=== PATIENT | female | born 1995 | race Caucasian/White ===

== ENCOUNTER → 2016-12-27 | Outpatient (CLI) | payer BC ==
[~2016-12-27] MED LIST: BCP PO; CHOL2000 PO; HYDR-3454 PO; HYDR-757 PO; IBUP-1773 PO; LIRA0.6P SQ; METF500T4 PO; NITR-65 PO; PANT40TA2 PO; PRENATAL; PROG200C14 PO; TRM50T PO
--- OUTSIDE RECORDS SUMMARY | 2016-12-27 10:02 | XMS REPORT | Continuity of Care Document ---
Author Author [facility] Organization [facility] Address Unknown Phone Unavailable Care Team Providers Care Chair Pad Maker Name Role Phone KENNY DUKE DO PCP Insurance Providers Payer Name Policy Number Subscriber Name Relationship [id number] Neto Arenas 19 Father Advance Directives Directive Response Recorded Date/Time Advance Directives No 08/19/16 12:15pm Health Care Power of Driver Courier No 08/19/16 12:15pm Organ Donor No 08/19/16 12:15pm Resuscitation Status Full Code 08/19/16 12:15pm Problems Active Problems Medical Problem Onset Date Status Abdominal pain Unknown Acute Abdominal pain Unknown Acute OVARIAN CYST Unknown Acute OVARIAN CYST Unknown Acute Medications Current Home Medications Medication Dose Units Route Directions Days/Qty Instructions Start Date [Bcp] 1 Tab Oral Daily 09/02/14 Metformin Hcl 500 Mg 1,000 Mg Oral Daily 08/19/16 Pantoprazole Sodium 40 Mg 40 Mg Oral Daily 30 08/19/16 Past Home Medications Medication Directions Ordered Status Hydrocodone Bit/Acetaminophen 1 Each Tablet, 1 Ea Oral Every 6 Hours as needed for Mild Pain 12/23/13 Discontinued Tramadol Hcl 50 Mg Tab, 50 Mg Oral Q4-6HR as needed for Pain 12/26/13 Discontinued Nitrofurantoin Macrocrystals 100 Mg Capsule, 1 Each Oral Twice A Day Discontinued Hydrocodone Bit/Acetaminophen 1 Tab Tablet, 1 Tab Oral Every 4HRS as needed for Pain 09/05/14 Discontinued Ibuprofen (Motrin) 600 Mg Tablet, 600 Mg Oral Every 6 Hours as needed for Pain 09/05/14 Discontinued Metformin Hcl 500 Mg Tablet, 500 Mg Oral Daily 05/03/16 Discontinued Liraglutide 0.6 Mg/0.1 Ml Pen.injctr, 0.6 Mg Sub-Q Daily 05/03/16 Discontinued Cholecalciferol (Vitamin D3) 2,000 Unit Capsule, 2000 Unit Oral Daily Discontinued Hydrocodone/Acetaminophen 1 Each Tablet, 1 Each Oral Every 4HRS as needed for Abdominal Pain 05/03/16 Discontinued Hydrocodone/Acetaminophen 1 Each Tablet, 1 Each Oral Every 4HRS as needed for Abdominal Pain 05/17/16 Discontinued Social History Social History Problem Response Recorded Date/Time Alcohol Use Denies Use 05/03/2016 7:30am Recreational Drug Use No 05/03/2016 7:30am Recent Foreign Travel No 08/19/2016 12:15pm Recent Infectious Disease Exposure No 08/19/2016 12:15pm Sexually Transmitted Disease No 08/19/2016 12:15pm HIV/AIDS No 08/19/2016 12:15pm Smoking Status Never a Smoker 08/19/2016 12:15pm Recent Hopitalizations No 08/19/2016 12:15pm Sexually Transmitted Disease No 08/19/2016 12:15pm Hx Sexually Transmitted Disorders No 09/05/2014 8:13am Query Response Start Date Stop Date Smoking Status Never a Smoker Hospital Discharge Instructions Patient Instructions Physician Instructions New, Converted or Re-Newed RX: RX on Chart Plan of Care/Instructions/FU: follow-up with me in 4 weeks Activity as Tolerated: Yes Discharge Diet: No Restrictions Care Plan Patient Instructions:: follow-up with me in 4 weeks Plan of Care Discharge Date 08/19/16 2:50pm Instructions/Education Provided EGD-ESOPHAGOGASTRODUODENOSCOPY Hiatal Hernia (DC) Prescriptions See Medication Section Functional Status No functional status results. Allergies, Adverse Reactions, Alerts Allergen Type Severity Reaction Status Last Updated iodine ([id number]) Allergy Unknown Active 09/05/14 Immunizations No immunization records. Vital Signs Acute Vital Signs Vital Response Date/Time Temperature (Fahrenheit) 98.8 degrees F (97.6 - 99.5) 08/19/2016 2:50pm Temperature (Calculated Celsius) 37.85771 degrees C (36.4 - 37.5) 08/19/2016 2:50pm Temperature Source Tympanic 08/19/2016 2:50pm Pulse Rate (adult) 81 bpm (60 - 90) 08/19/2016 2:50pm Respiratory Rate 20 bpm (12 - 24) 08/19/2016 2:50pm O2 Sat by Pulse Oximetry 99 % (88 - 100) 08/19/2016 2:50pm Blood Pressure 110/69 mm Hg 08/19/2016 2:50pm Pain Numeric Pain Scale 0-No Pain 08/19/2016 2:50pm Pain Intensity 0 08/19/2016 2:45pm Height (Feet) 5 feet 08/19/2016 12:15pm Height (Inches) 6.00 inches 08/19/2016 12:15pm Height (Calculated Centimeters) 167.814962 cm 08/19/2016 12:15pm Weight (Pounds) 135 pounds 08/19/2016 12:15pm Weight (Ounces) 0.0 oz 08/19/2016 12:15pm Weight (Calculated Grams) 61126.97 gm 08/19/2016 12:15pm Weight (Calculated Kilograms) 61.949940 kilograms 08/19/2016 12:15pm Calculated BMI 21.8 08/19/2016 12:15pm Results No known relevant diagnostic tests, laboratory data and/or discharge summary. Procedures Procedure Status Date Provider(s) Esophagogastroduodenoscopy (EGD) with dilation Completed 08/19/16 JAH RANGEL MD Encounters Encounter Location Arrival/Admit Date Discharge/Depart Date Attending Provider Departed [facility] 08/19/16 11:29am 08/19/16 2:50pm JAH RANGEL MD Departed Clinic [facility] 08/16/16 5:43am 08/16/16 9: 36am JAH RANGEL MD
--- NOTE | 2016-12-27 16:37 | Diagnostic Imaging Report ---
OB ultrasound. INDICATION: . FINDINGS: The endometrium is slightly thickened with a lobulated cystic area with mean sac diameter of 7 mm corresponding to 5 weeks and 2 days of gestation seen. Surrounding hyperechogenicity may relate to decidual reaction of the gestational sac, however, no embryo or yolk sac is identified to confirm definite . The myometrium appears unremarkable. The right ovary is 1.8 x 2.8 x 3.0 cm with normal follicle seen. The left ovary is obscured by bowel gas. IMPRESSION: Lobulated cystic area in the endometrium may relate to a normal early , blighted ovum or pseudo-gestational sac of an occult ectopic . Correlation with the serial beta-hCG levels and ultrasound evaluation in a week is recommended. Dictated by: Dictated on workstation # [id number]
== END ==
LOC: RAD 10:00
PROVIDERS: ATTEND Internal Medicine
DX: Z34.90 Encounter for supervision of normal pregnancy, unspecified, unspecified trimester (principal)
CPT/HCPCS: 76817

== ENCOUNTER 2017-01-04 13:25 | Emergency (ER) | payer BC ==
[~2017-01-04] VITALS: Ht 167.6 cm; Wt 61.2 kg
[~2017-01-04 13:25] MED LIST changes: -PRENATAL; -PROG200C14 PO
--- OUTSIDE RECORDS SUMMARY | 2017-01-04 13:31 | XMS REPORT | Continuity of Care Document ---
Author Author [facility] Organization [facility] Address Unknown Phone Unavailable Care Team Providers Care Corporate Compliance Director Name Role Phone KENNY DUKE DO PCP Insurance Providers Payer Name Policy Number [id number] 19 Father Advance Directives Directive Response Recorded Date/Time Advance Directives No 08/19/16 12:15pm Health Care Power of Pharmacy Informatics Specialist No 08/19/16 12:15pm Organ Donor No 08/19/16 [...] Type Severity Reaction Status Last Updated iodine ([id number]) Allergy Unknown Active 09/05/14 Immunizations No immunization records. Vital Signs Acute Vital Signs Vital Response Date/Time Temperature (Fahrenheit) 98.8 degrees F (97.6 - 99.5) 08/19/2016 2:50pm Temperature (Calculated Celsius) 37.24096 degrees C (36.4 - 37.5) 08/19/2016 2:50pm [...] 6.00 inches 08/19/2016 12:15pm Height (Calculated Centimeters) 167.809779 cm 08/19/2016 12:15pm Weight (Pounds) 135 pounds 08/19/2016 12:15pm Weight (Ounces) 0.0 oz 08/19/2016 12:15pm Weight (Calculated Grams) 26575.97 gm 08/19/2016 12:15pm Weight (Calculated Kilograms) 61.334805 kilograms 08/19/2016 12:15pm Calculated BMI 21.8 08/19/2016 12:15pm Results No known relevant diagnostic tests, laboratory data and/or discharge summary. Procedures Procedure Status Date Provider(s) Esophagogastroduodenoscopy (EGD) with dilation Completed 08/19/16 JAH RANGEL MD Encounters Encounter Location Arrival/Admit Date Discharge/Depart Date Attending Provider Departed [facility] 08/19/16 11:29am 08/19/16 2:50pm JAH RANEGL MD Departed Clinic [facility] 08/16/16 5:43am 08/16/16 9: 36am JAH RANGEL MD
[2017-01-04] MEDS ORDERED: PRENATAL (13:45)
--- NOTE | 2017-01-04 14:42 | Diagnostic Imaging Report ---
US OB TRANSVAGINAL [id number] TECHNIQUE: Transabdominal and transvaginal grayscale and color Doppler imaging of the gravid uterus was performed. INDICATION: Bleeding. COMPARISON: 12/27/2016. FINDINGS: There is a single gestational sac within the endometrium. An embryo is identified within the gestational sac. cardiac activity is identified with a heart rate of 77 beats per minute. Excello-rump length measures 2 mm, compatible with gestational age of 5 weeks and 6 days. IMPRESSION: 1. Single live intrauterine with heart rate of 77 beats per minute. Estimated gestational age by crown-rump length is 5 weeks and 6 days. Continued short-term followup pelvic ultrasound is advised to ensure appropriate development. Dictated by: Dictated on workstation # [id number]
--- NOTE | 2017-01-04 14:59 | ED GU-Female ---
General Chief Complaint: -Female Stated Complaint: 5 WKS PREG/VAG BLEEDING Nursing Triage Note: PT STATES SHE IS 5 WEEKS AND HAS BEEN BLEEDING SINCE ABOUT 1100 TODAY. STATES LESS BLOOD THAN A NORMAL PERIOD. PT STATES HAVING SEX YESTERDAY. Nursing Sepsis Screen: No Definite Risk History of Present Illness Time seen by provider: 15:10 Timing/Duration: this morning Severity/Quality: mild Radiation: none Activities at Onset: none Prior Genitourinary Problems: none Sexual Crook History: other (last night) Modifying Factors: Improves With Resting Associated Symptoms: denies symptomsNo abdominal pain, No dysuria, No fever/ chills, No loss of bladder control, No lower back pain, No nausea/vomiting, No urinary frequency Allergies and Home Medications Allergies Coded Allergies: iodine (Verified Allergy, Unknown, 09/05/14) Home Medications (Reported) Constitutional: no symptoms reported see HPI EENTM: no symptoms reported see HPI Respiratory: no symptoms reported see HPI Cardiovascular: no symptoms reported see HPI Gastrointestinal: no symptoms reported see HPI Genitourinary: see HPI dischargedenies dysuria, denies flank pain, denies hematuria, other (bloody vaginal bleeding since 1100 today) Expected Date of Delivery: Aug 31, 2017 LMP: Oct 15, 2016 Skin: no symptoms reported see HPI Psychiatric/Neurological: No Symptoms Reported See HPI Endocrine: No Symptoms Reported See HPI Hematologic/Lymphatic: No Symptoms Reported See HPI All Other Systemes Reviewed Negative Unless Noted: Yes Past Vmgnxyw-Qnygfq-Xfauee Hx Patient Social History Alcohol Use: Denies Use Recreational Drug Use: No Smoking Status: Never a Smoker Recent Foreign Travel: No Contact w/Someone Who Travel: No Recent Infectious Disease Expo: No Recent Hopitalizations: No Seasonal Allergies Seasonal Allergies: No Surgeries HX Surgeries: Yes (RIGHT KNEE, WISDOM TEETH, ORAL, DXLS) Surgeries: Gallbladder, Orthopedic Respiratory Hx Respiratory Disorders: No Cardiovascular Hx Cardiac Disorders: No Cardiac Disorders: Palpitations Neurological Hx Neurological Disorders: No Reproductive System : Yes Hx Reproductive Disorders: Yes (PELVIC PAIN, PCOS) Sexually Transmitted Disease: No HIV/AIDS: No Female Reproductive Disorders: Polycystic Ovarian Dis Genitourinary Hx Genitourinary Disorders: No Gastrointestinal Hx Gastrointestinal Disorders: No Musculoskeletal Hx Musculoskeletal Disorders: No Endocrine Hx Endocrine Disorders: No HEENT HX ENT Disorders: No Loss of Vision: Denies Hearing Impairment: Denies Cancer Hx Cancer: No Psychosocial Hx Psychiatric Problems: No Integumentary HX Skin/Integumentary Disorder: No Blood Transfusions Hx Blood Disorders: No Reviewed Nursing Assessment Reviewed/Agree w Nursing PMH: Yes Physical Exam Vital Signs Vital Sign - Last 12Hours 01/04/17 13:39 Temp 98.8 Pulse 100 Resp 20 B/P 128/80 Pulse Ox 100 O2 Delivery Room Air Capillary Refill : Less Than 3 Seconds General Appearance: WD/WN no apparent distress Neck: full range of motion normal inspection Cardiovascular: normal peripheral pulses regular rate, rhythm no murmur Respiratory: chest non-tender lungs clear normal breath sounds Gastrointestinal: normal bowel sounds non tender soft Extremities: normal range of motion non-tender normal inspection Neurologic/Psychiatric: no motor/sensory deficits alert normal mood/affect oriented x 3 Skin: normal color warm/dry Lymphatic: no adenopathy Progress/Results/Core Measures Results/Orders Lab Results Laboratory Tests Test 01/04/17 13:45 Range/Units Human Chorionic Gonadotropin, Quant 2524 H <5 MIU/ML Vital Signs/I&O Vital Sign - Last 12Hours 01/04/17 01/04/17 13:39 15:25 Temp 98.8 98.8 Pulse 100 85 Resp 20 20 B/P 128/80 Pulse Ox 100 100 O2 Delivery Room Air Blood Pressure Mean: 96 Progress Note : Time: 15:10 Progress Note Quant HCG 2524; reviewed ultrasound results with the patient showing a single intrauterine with cardiac activity heart rate of 77 bpm, gestational age 5 weeks 6 days. Discussed risk of threatened miscarriage with spotting, all questions answered. Patient understands that she is at risk but with the elevated hCG and normal ultrasound is no additional treatment or precautions to be taken at this point in time. Diagnostic Imaging Diagonstic Imaging: Ultrasound Comments NAME: SUNITHA ARENAS [facility] REC#: [id number] PT STATUS: REG ER : 1995 PHYSICIAN: TERRENCE NEVAREZ MD ADMIT DATE: 01/04/17/ER Draft Date of Exam:01/04/17 US OB TRANSVAGINAL [id number] US OB TRANSVAGINAL [id number] TECHNIQUE: Transabdominal and transvaginal grayscale and color Doppler imaging of the gravid uterus was performed. INDICATION: Bleeding. COMPARISON: 12/27/2016. FINDINGS: There is a single gestational sac within the endometrium. An embryo is identified within the gestational sac. cardiac activity is identified with a heart rate of 77 beats per minute. Staley-rump length measures 2 mm, compatible with gestational age of 5 weeks and 6 days. IMPRESSION: 1. Single live intrauterine with heart rate of 77 beats per minute. Estimated gestational age by crown-rump length is 5 weeks and 6 days. Continued short-term followup pelvic ultrasound is advised to ensure appropriate development. Reviewed: Reviewed/Discussed Departure Impression Impression: Primary Impression: Vaginal bleeding during , antepartum Disposition: HOME, SELF-CARE Condition: Stable Departure-Patient Inst. Referrals: RAMON SMART DO (PCP) Primary Care Physician KENNY DUKE DO (Family) Primary Care Physician Patient Instructions: IRREGULAR VAGINAL BLEEDING, Threatened Miscarriage (DC) Add. Discharge Instructions: All discharge instructions reviewed with patient and/or family. Voiced understanding. Rest through the weekend. Follow-up with Dr. SMART on Friday. Return to emergency room for fevers, weakness or for fatigue, increased vaginal bleeding, or any other concerns. Nothing in Vagina: no intercourse or tampons. Work/School Note: Work Release Form Date Seen in the Emergency Department: Jan 04, 2017 Return to Work: Jan 06, 2017 Restrictions: No Restrictions Copy Copies To 1: RAMON SMART AMY ARNP Jan 04, 2017 14:59
[2017-01-04 15:25] VITALS: BP 126/79
[2017-01-17] MEDS ORDERED: IBUP-1773 PO (07:20)
[2017-01-17] MEDS ORDERED: HYDR-757 PO (07:20)
== END 2017-01-04 15:25 | disposition home or self-care (01) ==
LOC: EDUNIT# 13:25 → ER 13:27
DX: O46.91 Antepartum hemorrhage, unspecified, first trimester (principal); Z3A.01 Less than 8 weeks gestation of pregnancy
CPT/HCPCS: 36415; 76817; 84702; 99283

== ENCOUNTER 2017-01-12 16:36 | Emergency (ER) | payer BC ==
[~2017-01-12] VITALS: Ht 167.6 cm; Wt 59.0 kg
[~2017-01-12 16:36] MED LIST changes: +PRENATAL
--- OUTSIDE RECORDS SUMMARY | 2017-01-12 16:41 | XMS REPORT | Continuity of Care Document ---
Author Author [facility] Organization [facility] Address Unknown Phone Unavailable Care Team Providers Care Guest Advisor Name Role Phone KENNY DUKE DO PCP Insurance Providers Payer Name Policy Number [id number] 19 Father Advance Directives Directive Response Recorded Date/Time Advance Directives No 08/19/16 12:15pm Health Care Power of Flour Mixer Helper No 08/19/16 12:15pm Organ Donor No 08/19/16 [...] Type Severity Reaction Status Last Updated iodine ([id number]) Allergy Unknown Active 09/05/14 Immunizations No immunization records. Vital Signs Acute Vital Signs Vital Response Date/Time Temperature (Fahrenheit) 98.8 degrees F (97.6 - 99.5) 08/19/2016 2:50pm Temperature (Calculated Celsius) 37.39349 degrees C (36.4 - 37.5) 08/19/2016 2:50pm [...] 6.00 inches 08/19/2016 12:15pm Height (Calculated Centimeters) 167.251039 cm 08/19/2016 12:15pm Weight (Pounds) 135 pounds 08/19/2016 12:15pm Weight (Ounces) 0.0 oz 08/19/2016 12:15pm Weight (Calculated Grams) 57684.97 gm 08/19/2016 12:15pm Weight (Calculated Kilograms) 61.994290 kilograms 08/19/2016 12:15pm Calculated BMI 21.8 08/19/2016 12:15pm Results No known relevant diagnostic tests, laboratory data and/or discharge summary. Procedures Procedure Status Date Provider(s) Esophagogastroduodenoscopy (EGD) with dilation Completed 08/19/16 JAH RANGEL MD Encounters Encounter Location Arrival/Admit Date Discharge/Depart Date Attending Provider Departed [facility] 08/19/16 11:29am 08/19/16 2:50pm JAH RANGEL MD Departed Clinic [facility] 08/16/16 5:43am 08/16/16 9: 36am JAH RANGEL MD
[2017-01-12 17:17] LABS: BASOPHILS % (AUTO) 1 % (0-10); EOSINOPHILS # (AUTO) 0.2 10^3/uL (0.0-0.3); EOSINOPHILS % (AUTO) 2 % (0-10); LYMPHOCYTES # (AUTO) 1.7 X 10^3 (1.0-4.0); LYMPHOCYTES % (AUTO) 21 % (12-44); MEAN CORPUSCULAR HEMOGLOBIN 30 PG (25-34); MEAN CORPUSCULAR HGB CONC 34 G/DL (32-36); MEAN CORPUSCULAR VOLUME 88 FL (80-99); MEAN PLATELET VOLUME 9.5 FL (7.4-10.4); MONOCYTES # (AUTO) 0.7 X 10^3 (0.0-1.0); MONOCYTES % (AUTO) 9 % (0-12); NEUTROPHILS # (AUTO) 5.4 X 10^3 (1.8-7.8); NEUTROPHILS % (AUTO) 67 % (42-75); PLATELET COUNT 291 10^3/uL (130-400); RED BLOOD COUNT 4.31 10^6/uL (4.35-5.85); RED CELL DISTRIBUTION WIDTH 14.2 % (10.0-14.5)
[2017-01-12 17:23] LABS: BILIRUBIN,URINE NEGATIVE (NEGATIVE); KETONES,URINE NEGATIVE (NEGATIVE); LEUKOCYTE ESTERASE ,URINE NEGATIVE (NEGATIVE); NITRITE,URINE NEGATIVE (NEGATIVE); PH,URINE 6 (5-9); PROTEIN,URINE 3+ (NEGATIVE); UROBILINOGEN,URINE NORMAL (NORMAL)
--- NOTE | 2017-01-12 17:28 | ED GU-Female ---
General Chief Complaint: -Female Stated Complaint: 7 WKS PREG/VAG BLEEDING Nursing Triage Note: PT STATES HAVING INCREASED VAGINAL BLEEDING, HAS BEEN HAVING BLEEDING FOR APPROX 2 WEEKS. PT STATES WORSE TODAY, HAS HAD INCREASED BLEEDING TODAY. PT HAS HAD 3 TAMPONS CHANGED. PT HAS BEEN SEEN BY DR HOWARD SINCE LAST VISIT Nursing Sepsis Screen: No Definite Risk Source: patient, other (significant other ) Exam Limitations: no limitations History of Present Illness Time seen by provider: 17:28 Initial Comments 21 yo female patient presents to the ED with c/o increased vaginal bleeding today. Patient states she has had vaginal bleeding for approximately 2 wks and is being followed by Dr. Howard. Denies abdominal pain, cramping, N/V/D, dysuria, frequency, hematuria. Patient has used 3 tampons today. Tampons were approved by Dr. Howard. Patient states she is approximately 7 wks . Timing/Duration: other (2 wks) Severity/Quality: moderate Location: vaginal Radiation: none Activities at Onset: none Prior Genitourinary Problems: similar symptoms Sexual [facility] History: less than 2 months ago, single partner Modifying Factors: Worsens With Other (denies modifying factors.) Allergies and Home Medications Allergies Coded Allergies: iodine (Verified Allergy, Unknown, 09/05/14) Home Medications (Reported) Progesterone 200 Mg Cap #30 200 MG PO HS Prescribed by: MADELYN RICARDO on 01/12/17 8953 Constitutional: No chills, No dizziness, No fever, No malaise, No weakness EENTM: no symptoms reported Respiratory: No cough, No short of breath Cardiovascular: No chest pain, No edema, No palpitations Gastrointestinal: No abdominal pain, No constipation, No diarrhea, No loss of appetite, No nausea, No vomiting Genitourinary: denies burning, denies discharge, denies dysuria, denies frequency, denies flank pain, denies hematuria, denies pain, other (vaginal bleeding.) : Yes Musculoskeletal: no symptoms reported Skin: no symptoms reported Psychiatric/Neurological: No Symptoms Reported All Other Systemes Reviewed Negative Unless Noted: Yes (Negative excepted noted.) Past Acdltnx-Vxisho-Osorru Hx Patient Social History Alcohol Use: Denies Use Recreational Drug Use: No Smoking Status: Never a Smoker Recent Foreign Travel: No Contact w/Someone Who Travel: No Recent Infectious Disease Expo: No Recent Hopitalizations: No Seasonal Allergies Seasonal Allergies: No Surgeries HX Surgeries: Yes (RIGHT KNEE, WISDOM TEETH, ORAL, DXLS) Surgeries: Gallbladder, Orthopedic Respiratory Hx Respiratory Disorders: No Cardiovascular Hx Cardiac Disorders: No Cardiac Disorders: Palpitations Neurological Hx Neurological Disorders: No Reproductive System : Yes Hx : 1 Hx Para: 0 Hx Total # of Abortions (Spona: 0 Hx Reproductive Disorders: Yes (PELVIC PAIN, PCOS) Sexually Transmitted Disease: No HIV/AIDS: No Female Reproductive Disorders: Polycystic Ovarian Dis Genitourinary Hx Genitourinary Disorders: No Gastrointestinal Hx Gastrointestinal Disorders: No Musculoskeletal Hx Musculoskeletal Disorders: No Endocrine Hx Endocrine Disorders: No HEENT HX ENT Disorders: No Loss of Vision: Denies Hearing Impairment: Denies Cancer Hx Cancer: No Psychosocial Hx Psychiatric Problems: No Integumentary HX Skin/Integumentary Disorder: No Blood Transfusions Hx Blood Disorders: No Reviewed Nursing Assessment Reviewed/Agree w Nursing PMH: Yes Family Medical History Significant Family History: No Pertinent Family Hx Physical Exam Vital Signs Vital Sign - Last 12Hours 01/12/17 16:57 Temp 99.3 Pulse 112 Resp 18 B/P 139/70 Pulse Ox 100 Capillary Refill : Less Than 3 Seconds General Appearance: WD/WN no apparent distress Cardiovascular: regular rate, rhythm no edema no murmur Respiratory: lungs clear normal breath sounds no respiratory distress Gastrointestinal: normal bowel sounds non tender soft no organomegalyNo distended Pelvic: other (deferred as patient had a pelvic exam by Dr. Howard on Friday.) Back: normal inspection no CVA tenderness Extremities: no pedal edema normal capillary refill Neurologic/Psychiatric: alert normal mood/affect oriented x 3 Skin: normal color warm/dryNo pallor Progress/Results/Core Measures Results/Orders Lab Results Laboratory Tests Test 01/12/17 16:50 01/12/17 17:12 Range/Units Basophils # (Auto) 0.0 0.0-0.1 10^3/uL Basophils (%) (Auto) 1 0-10 % Eosinophils # (Auto) 0.2 0.0-0.3 10^3/uL Eosinophils (%) (Auto) 2 0-10 % Hematocrit 38 35-52 % Hemoglobin 12.8 11.5-16.0 G/DL Human Chorionic Gonadotropin, Quant 2082 H <5 MIU/ML Lymphocytes # (Auto) 1.7 1.0-4.0 X 10^3 Lymphocytes (%) (Auto) 21 12-44 % Mean Corpuscular Hemoglobin 30 25-34 PG Mean Corpuscular Hemoglobin Concent 34 32-36 G/DL Mean Corpuscular Volume 88 80-99 FL Mean Platelet Volume 9.5 7.4-10.4 FL Monocytes # (Auto) 0.7 0.0-1.0 X 10^3 Monocytes (%) (Auto) 9 0-12 % Neutrophils # (Auto) 5.4 1.8-7.8 X 10^3 Neutrophils (%) (Auto) 67 42-75 % Platelet Count 291 130-400 10^3/uL Red Blood Count 4.31 L 4.35-5.85 10^6/uL Red Cell Distribution Width 14.2 10.0-14.5 % White Blood Count 8.0 4.3-11.0 10^3/uL Urine Bacteria FEW H /HPF Urine Bilirubin NEGATIVE NEGATIVE Urine Casts NONE /LPF Urine Clarity SLIGHTLY CLOUDY Urine Color YELLOW Urine Crystals NONE /LPF Urine Culture Indicated NO Urine Glucose (UA) NEGATIVE NEGATIVE Urine Ketones NEGATIVE NEGATIVE Urine Leukocyte Esterase NEGATIVE NEGATIVE Urine Mucus NEGATIVE /LPF Urine Nitrite NEGATIVE NEGATIVE Urine Protein 3+ H NEGATIVE Urine RBC 5-10 H /HPF Urine RBC (Auto) 3+ H NEGATIVE Urine Specific [place] 1.020 1.016-1.022 Urine Squamous Epithelial Cells 25-50 H /HPF Urine Urobilinogen NORMAL NORMAL MG/DL Urine WBC 2-5 /HPF Urine pH 6 5-9 Vital Signs/I&O Vital Sign - Last 12Hours 01/12/17 01/12/17 16:57 18:34 Temp 99.3 99.3 Pulse 112 112 Resp 18 18 B/P 139/70 Pulse Ox 100 100 Blood Pressure Mean: 93 Departure Communication Progress Notes Patient case discussed with Dr. Howard. Recommends [facility] to home with f/u in his clinic on January 23 as previously scheduled or sooner if needed. Request patient to contact his office or return to the emergency department if she uses more then 5 pads in 24 hours. Also states he will repeat the ultrasound on January 23 as patient had an ultrasound in his office on Friday. States the quantitative hCG has increased from the result in his office Friday. Inquires about patient taking progesterone as prescribed by him. Patient states she is not on the progesterone currently, because her parents picked the med up from [facility] and her parents will not give her the medicine. Prescription for Prometrium sent to [facility] pharmacy per Dr. Howard's recommendations. Plan for discharge discussed with the patient. All return precautions were discussed with the patient as described in the discharge instructions of this report. Patient voices understanding and agrees with the treatment plan. Patient case discussed with Dr. Rivero, he agrees with the Plan of care. Impression Impression: Primary Impression: Threatened miscarriage in early Disposition: 01 HOME, SELF-CARE Condition: Improved Departure-Patient Inst. Decision time for Depature: 18:21 Referrals: RAMON HOWARD DO (PCP) Primary Care Physician KENNY DUKE DO (Family) Primary Care Physician Patient Instructions: Threatened Miscarriage (DC) Add. Discharge Instructions: All discharge instructions reviewed with patient and/or family. Voiced understanding. medications as prescribed by Dr. Howard. Tylenol over-the- counter if needed for pain. Rest. No intercourse or strenuous activity until seen and released by Dr. Howard. Follow-up with Dr. Howard January 23 as previously scheduled or sooner if needed.. Return to the emergency department immediately for vaginal bleeding requiring greater than 5 tampons in 24 hours, fever, vomiting, or any other concerns. Scripts Progesterone (Prometrium)200 Mg Ymc144 Mg PO HS #30 CAP Ref 0 Prov:MADELYN RICARDO 01/12/17 MADELYN RICARDO Jan 12, 2017 17:28
[2017-01-12 17:33] LABS: SQUAMOUS EPITHELIAL CELL,UR 25-50 /HPF
[2017-01-12 18:34] VITALS: BP 139/70
[2017-01-12] MEDS ORDERED: PROG200C14 PO (18:34)
[2017-01-17] MEDS ORDERED: IBUP-1773 PO (07:20)
[2017-01-17] MEDS ORDERED: HYDR-757 PO (07:20)
== END 2017-01-12 18:34 | disposition home or self-care (01) ==
LOC: EDUNIT# 16:36 → ER 16:38
DX: O20.0 Threatened abortion (principal); Z3A.01 Less than 8 weeks gestation of pregnancy
CPT/HCPCS: 36415; 81000; 84702; 85025; 99282

== ENCOUNTER 2017-01-15 09:33 | Emergency (ER) | payer BC ==
[~2017-01-15] VITALS: Ht 167.6 cm; Wt 61.2 kg
[~2017-01-15 09:33] MED LIST changes: +PROG200C14 PO
--- OUTSIDE RECORDS SUMMARY | 2017-01-15 09:40 | XMS REPORT | Continuity of Care Document ---
Author Author [facility] Organization [facility] Address Unknown Phone Unavailable Care Team Providers Care Coding Technician Name Role Phone KENNY DUKE DO PCP Insurance Providers Payer Name Policy Number Subscriber Name [id number] Neto Arenas 19 Father Advance Directives Directive Response Recorded Date/Time Advance Directives No 08/19/16 12:15pm Health Care Power of Search Manager No 08/19/16 12:15pm Organ Donor No 08/19/16 [...] Type Severity Reaction Status Last Updated iodine ([id number]) Allergy Unknown Active 09/05/14 Immunizations No immunization records. Vital Signs Acute Vital Signs Vital Response Date/Time Temperature (Fahrenheit) 98.8 degrees F (97.6 - 99.5) 08/19/2016 2:50pm Temperature (Calculated Celsius) 37.33488 degrees C (36.4 - 37.5) 08/19/2016 2:50pm [...] 6.00 inches 08/19/2016 12:15pm Height (Calculated Centimeters) 167.825736 cm 08/19/2016 12:15pm Weight (Pounds) 135 pounds 08/19/2016 12:15pm Weight (Ounces) 0.0 oz 08/19/2016 12:15pm Weight (Calculated Grams) 97422.97 gm 08/19/2016 12:15pm Weight (Calculated Kilograms) 61.237739 kilograms 08/19/2016 12:15pm Calculated BMI 21.8 08/19/2016 12:15pm Results No known relevant diagnostic tests, laboratory data and/or discharge summary. Procedures Procedure Status Date Provider(s) Esophagogastroduodenoscopy (EGD) with dilation Completed 08/19/16 JAH RANGEL MD Encounters Encounter Location Arrival/Admit Date Discharge/Depart Date Attending Provider Departed [facility] 08/19/16 11:29am 08/19/16 2:50pm JAH RANGEL MD Departed Clinic [facility] 08/16/16 5:43am 08/16/16 9: 36am JAH RANGEL MD
[2017-01-15 09:56] LABS: BASOPHILS % (AUTO) 0 % (0-10); EOSINOPHILS # (AUTO) 0.2 10^3/uL (0.0-0.3); EOSINOPHILS % (AUTO) 2 % (0-10); LYMPHOCYTES # (AUTO) 1.8 X 10^3 (1.0-4.0); LYMPHOCYTES % (AUTO) 20 % (12-44); MEAN CORPUSCULAR HEMOGLOBIN 29 PG (25-34); MEAN CORPUSCULAR HGB CONC 33 G/DL (32-36); MEAN CORPUSCULAR VOLUME 87 FL (80-99); MEAN PLATELET VOLUME 9.4 FL (7.4-10.4); MONOCYTES # (AUTO) 0.7 X 10^3 (0.0-1.0); MONOCYTES % (AUTO) 8 % (0-12); NEUTROPHILS # (AUTO) 6.5 X 10^3 (1.8-7.8); NEUTROPHILS % (AUTO) 70 % (42-75); PLATELET COUNT 271 10^3/uL (130-400); RED CELL DISTRIBUTION WIDTH 14.2 % (10.0-14.5); WHITE BLOOD COUNT 9.3 10^3/uL (4.3-11.0)
--- NOTE | 2017-01-15 10:41 | ED Abdominal Pain ---
General Chief Complaint: -Female Stated Complaint: VAG BLEEDING/CRAMPING 7 WKS PREG Nursing Triage Note: PT CO OF INCREASED VAGINAL BLEEDING, W CLOTS AND ABD CRAMPING SINCE YESTERDAY. PT 3RD VISIT TO ED FOR VAGINAL BLEEDING DURING Sepsis Screen: No Definite Risk Source of Information: Patient Exam Limitations: No Limitations History of Present Illness Time Seen By Provider: 10:40 Initial Comments To ER with vaginal bleeding including clots for the past 2 weeks. She is 7 weeks . She's had cramping quite intense since last night. She sees Dr. SMART. Timing/Duration: 1-2 Days Severity/Quality: Cramping Location: Generalized Abdomen Radiation: No Radiation Activities at Onset: None Associated Symptoms: Denies Symptoms Allergies and Home Medications Allergies Coded Allergies: iodine (Verified Allergy, Unknown, 09/05/14) Home Medications (Reported) Progesterone 200 Mg Cap #30 200 MG PO HS Prescribed by: MADELYN RICARDO on 01/12/17 5894 Review of Systems Constitutional: see HPI EENTM: No Symptoms Reported Respiratory: No Symptoms Reported Cardiovascular: No Symptoms Reported Gastrointestinal: See HPI Abdominal Pain Genitourinary: No Symptoms Reported Musculoskeletal: no symptoms reported Skin: no symptoms reported Psychiatric/Neurological: No Symptoms Reported Endocrine: No Symptoms Reported Hematologic/Lymphatic: No Symptoms Reported Past Fmetxkr-Zmmptj-Zjpocu Hx Patient Social History Alcohol Use: Denies Use Recreational Drug Use: No Smoking Status: Never a Smoker Recent Foreign Travel: No Contact w/Someone Who Travel: No Recent Infectious Disease Expo: No Recent Hopitalizations: No Seasonal Allergies Seasonal Allergies: No Surgeries HX Surgeries: Yes (RIGHT KNEE, WISDOM TEETH, ORAL, DXLS) Surgeries: Gallbladder, Orthopedic Respiratory Hx Respiratory Disorders: No Cardiovascular Hx Cardiac Disorders: No Cardiac Disorders: Palpitations Neurological Hx Neurological Disorders: No Reproductive System : Yes Hx Reproductive Disorders: Yes (PELVIC PAIN, PCOS) Sexually Transmitted Disease: No HIV/AIDS: No Female Reproductive Disorders: Polycystic Ovarian Dis Genitourinary Hx Genitourinary Disorders: No Gastrointestinal Hx Gastrointestinal Disorders: No Musculoskeletal Hx Musculoskeletal Disorders: No Endocrine Hx Endocrine Disorders: No HEENT HX ENT Disorders: No Loss of Vision: Denies Hearing Impairment: Denies Cancer Hx Cancer: No Psychosocial Hx Psychiatric Problems: No Integumentary HX Skin/Integumentary Disorder: No Blood Transfusions Hx Blood Disorders: No Family Medical History Significant Family History: No Pertinent Family Hx Physical Exam Vital Signs VS - Last 72 Hours, by Label 01/15/17 09:40 Temp 96.4 Pulse 103 Resp 18 B/P 132/90 Pulse Ox 99 O2 Delivery Room Air Capillary Refill : Less Than 3 Seconds General Appearance: WD/WN no apparent distress HEENT: PERRL/EOMI normal ENT inspection Neck: non-tender full range of motion Respiratory: no respiratory distress no accessory muscle use Cardiovascular: regular rate, rhythm no murmur Gastrointestinal: normal bowel sounds non tender soft Extremities: normal range of motion non-tender Neurologic/Psychiatric: alert normal mood/affect oriented x 3 Skin: normal color warm/dry Progress/Results/Core Measures Results/Orders Lab Results Laboratory Tests Test 01/15/17 09:40 Range/Units Basophils # (Auto) 0.0 0.0-0.1 10^3/uL Basophils (%) (Auto) 0 0-10 % Eosinophils # (Auto) 0.2 0.0-0.3 10^3/uL Eosinophils (%) (Auto) 2 0-10 % Hematocrit 38 35-52 % Hemoglobin 12.5 11.5-16.0 G/DL Human Chorionic Gonadotropin, Quant 1151 H <5 MIU/ML Lymphocytes # (Auto) 1.8 1.0-4.0 X 10^3 Lymphocytes (%) (Auto) 20 12-44 % Mean Corpuscular Hemoglobin 29 25-34 PG Mean Corpuscular Hemoglobin Concent 33 32-36 G/DL Mean Corpuscular Volume 87 80-99 FL Mean Platelet Volume 9.4 7.4-10.4 FL Monocytes # (Auto) 0.7 0.0-1.0 X 10^3 Monocytes (%) (Auto) 8 0-12 % Neutrophils # (Auto) 6.5 1.8-7.8 X 10^3 Neutrophils (%) (Auto) 70 42-75 % Platelet Count 271 130-400 10^3/uL Red Blood Count 4.30 L 4.35-5.85 10^6/uL Red Cell Distribution Width 14.2 10.0-14.5 % White Blood Count 9.3 4.3-11.0 10^3/uL My Orders Orders-COLLEEN LLAENS GASOLINE TRACTOR OPERATOR Us Ob<14 Wks Sngle W/Transvag (01/15/17 10:37) Hydrocodone/Apap 5/325 Tablet (Lortab 5 (01/15/17 10:45) Ns Iv 1000 Ml (Sodium Chloride 0.9%) (01/15/17 10:45) Medications Given in ED Current Medications Medications Dose Ordered Sig/Nieves Route Start Time Stop Time Status Last Admin Dose Admin Acetaminophen/ Hydrocodone Bitart 1 tab ONCE ONCE PO 01/15/17 10:45 01/15/17 10:46 DC 01/15/17 10:51 1 TAB Vital Signs/I&O Vital Sign - Last 12Hours 01/15/17 09:40 Temp 96.4 Pulse 103 Resp 18 B/P 132/90 Pulse Ox 99 O2 Delivery Room Air Blood Pressure Mean: 104 Departure Impression Impression: Primary Impression: Spontaneous miscarriage Disposition: HOME, SELF-CARE Condition: Stable Departure-Patient Inst. Decision time for Depature: 11:01 Referrals: RAMON SMART DO (PCP) Primary Care Physician KENNY DUKE DO (Family) Primary Care Physician Patient Instructions: Dealing With Miscarriage, Miscarriage Add. Discharge Instructions: 1. Expect bleeding and cramping to continue for 2-3 days. You will also noticed a small amount of tissue from the vagina likely today. 2. Follow-up with Dr. SMART as soon as possible All discharge instructions reviewed with patient and/or family. Voiced understanding. Scripts Hydrocodone/Acetaminophen ([place] 5-325 Tablet)1 Each Tablet1 Each PO Q4H PRN PAIN #10 TAB Prov:COLLEEN LLANES APRN 01/15/17 Copy Copies To 1: RAMON SMART PETER J APRN Jan 15, 2017 10:41
[2017-01-15] MEDS ORDERED: HYDROcodone/APAP 5 MG/325 MG (LORTAB) TAB PO ONE (10:45)
[2017-01-15] MEDS ORDERED: NS IV 1000 ML 1,000 ML IV SCH (10:45)
[2017-01-15] MEDS ORDERED: HYDR-757 PO (11:29)
[2017-01-15 11:37] VITALS: BP 132/90
--- NOTE | 2017-01-15 12:11 | Diagnostic Imaging Report ---
OB ultrasound. INDICATION: Vaginal bleeding and cramping. FINDINGS: There is an intrauterine with displacement towards the lower uterine segment compared to the prior exam, and embryo tissue is seen with no cardiac activity. No myometrial mass is seen. Gestational sac mean diameter would correspond to 5 weeks and 4 days similar to prior exams compatible with embryo demise. The right ovary is 2.3 x 3.7 x 3.1 cm and appears normal. The left ovary is obscured by bowel gas. A small amount of free fluid in the pelvis. IMPRESSION: Findings compatible with embryo demise and gestational sac now in the lower uterine segment compatible with in progress. The findings were discussed with AMPARO Mora, who is caring for the patient, by Dr. Guerrero at time of dictation. Dictated by: Dictated on workstation # [id number]
[2017-01-17] MEDS ORDERED: HYDR-757 PO (07:20)
[2017-01-17] MEDS ORDERED: IBUP-1773 PO (07:20)
== END 2017-01-15 11:39 | disposition home or self-care (01) ==
LOC: EDUNIT# 09:33 → ER 09:36
DX: O03.9 Complete or unspecified spontaneous abortion without complication (principal); Z3A.01 Less than 8 weeks gestation of pregnancy
CPT/HCPCS: 36415; 76801; 76817; 84702; 85025; 96360

== ENCOUNTER 2017-01-16 12:07 | Outpatient (CLI) | payer BC ==
[~2017-01-16] VITALS: Ht 167.6 cm; Wt 63.2 kg
--- OUTSIDE RECORDS SUMMARY | 2017-01-16 12:11 | XMS REPORT | Continuity of Care Document ---
Author Author [facility] Organization [facility] Address Unknown Phone Unavailable Care Team Providers Care Lead Java Programmer Name Role Phone KENNY DUKE DO PCP Insurance Providers Payer Name Policy Number Subscriber Name [id number] Neto A[facility]as 19 Father Advance Directives Directive Response Recorded Date/Time Advance Directives No 08/19/16 12:15pm Health Care Power of Promotions Manager No 08/19/16 12:15pm Organ Donor No [...] Type Severity Reaction Status Last Updated iodine ([id number]) Allergy Unknown Active 09/05/14 Immunizations No immunization records. Vital Signs Acute Vital Signs Vital Response Date/Time Temperature (Fahrenheit) 98.8 degrees F (97.6 - 99.5) 08/19/2016 2:50pm Temperature (Calculated Celsius) 37.50258 degrees C (36.4 - 37.5) 08/19/2016 2:50pm [...] 6.00 inches 08/19/2016 12:15pm Height (Calculated Centimeters) 167.564216 cm 08/19/2016 12:15pm Weight (Pounds) 135 pounds 08/19/2016 12:15pm Weight (Ounces) 0.0 oz 08/19/2016 12:15pm Weight (Calculated Grams) 62347.97 gm 08/19/2016 12:15pm Weight (Calculated Kilograms) 61.197908 kilograms 08/19/2016 12:15pm Calculated BMI 21.8 08/19/2016 12:15pm Results No known relevant diagnostic tests, laboratory data and/or discharge summary. Procedures Procedure Status Date Provider(s) Esophagogastroduodenoscopy (EGD) with dilation Completed 08/19/16 JAH RANGEL MD Encounters Encounter Location Arrival/Admit Date Discharge/Depart Date Attending Provider Departed [facility] 08/19/16 11:29am 08/19/16 2:50pm JAH RANGEL MD Departed Clinic [facility] 08/16/16 5:43am 08/16/16 9: 36am JAH RANGEL MD
[2017-01-16 12:21] VITALS: BP 122/69
[2017-01-16 12:45] LABS: BASOPHILS % (AUTO) 0 % (0-10); EOSINOPHILS # (AUTO) 0.2 10^3/uL (0.0-0.3); EOSINOPHILS % (AUTO) 3 % (0-10); LYMPHOCYTES # (AUTO) 1.6 X 10^3 (1.0-4.0); LYMPHOCYTES % (AUTO) 22 % (12-44); MEAN CORPUSCULAR HEMOGLOBIN 28 PG (25-34); MEAN CORPUSCULAR HGB CONC 32 G/DL (32-36); MEAN CORPUSCULAR VOLUME 89 FL (80-99); MEAN PLATELET VOLUME 9.5 FL (7.4-10.4); MONOCYTES # (AUTO) 0.6 X 10^3 (0.0-1.0); MONOCYTES % (AUTO) 8 % (0-12); NEUTROPHILS # (AUTO) 4.8 X 10^3 (1.8-7.8); NEUTROPHILS % (AUTO) 67 % (42-75); PLATELET COUNT 253 10^3/uL (130-400); RED BLOOD COUNT 4.12 10^6/uL (4.35-5.85); RED CELL DISTRIBUTION WIDTH 14.5 % (10.0-14.5); WHITE BLOOD COUNT 7.2 10^3/uL (4.3-11.0)
[2017-01-17] MEDS ORDERED: HYDR-757 PO (07:20)
[2017-01-17] MEDS ORDERED: IBUP-1773 PO (07:20)
== END 2017-01-16 15:04 | disposition home or self-care (01) ==
LOC: PREOP 12:07
PROVIDERS: ATTEND Obstetrics & Gynecology
DX: Z01.812 Encounter for preprocedural laboratory examination (principal); Z11.2 Encounter for screening for other bacterial diseases; O03.4 Incomplete spontaneous abortion without complication
CPT/HCPCS: 36415; 85025; 86850; 86900; 86901; 87081

== ENCOUNTER 2017-01-17 06:05 | Day surgery (SDC) | payer BC ==
[~2017-01-17] VITALS: Ht 167.6 cm; Wt 63.2 kg
--- OUTSIDE RECORDS SUMMARY | 2017-01-17 06:15 | XMS REPORT | Continuity of Care Document ---
Author Author [facility] Organization [facility] Address Unknown Phone Unavailable Care Team Providers Care Pediatrician/Medical Doctor Name Role Phone KENNY DUKE DO PCP Insurance Providers Payer Name Policy Number Subscriber Name [id number] Neto Arenas 19 Father Advance Directives Directive Response Recorded Date/Time Advance Directives No 08/19/16 12:15pm Health Care Power of Toolroom Attendant No 08/19/16 12:15pm Organ Donor No 08/19/16 [...] Type Severity Reaction Status Last Updated iodine ([id number]) Allergy Unknown Active 09/05/14 Immunizations No immunization records. Vital Signs Acute Vital Signs Vital Response Date/Time Temperature (Fahrenheit) 98.8 degrees F (97.6 - 99.5) 08/19/2016 2:50pm Temperature (Calculated Celsius) 37.12052 degrees C (36.4 - 37.5) 08/19/2016 2:50pm [...] 6.00 inches 08/19/2016 12:15pm Height (Calculated Centimeters) 167.320879 cm 08/19/2016 12:15pm Weight (Pounds) 135 pounds 08/19/2016 12:15pm Weight (Ounces) 0.0 oz 08/19/2016 12:15pm Weight (Calculated Grams) 57984.97 gm 08/19/2016 12:15pm Weight (Calculated Kilograms) 61.996728 kilograms 08/19/2016 12:15pm Calculated BMI 21.8 08/19/2016 12:15pm Results No known relevant diagnostic tests, laboratory data and/or discharge summary. Procedures Procedure Status Date Provider(s) Esophagogastroduodenoscopy (EGD) with dilation Completed 08/19/16 JAH RANGEL MD Encounters Encounter Location Arrival/Admit Date Discharge/Depart Date Attending Provider Departed [facility] 08/19/16 11:29am 08/19/16 2:50pm JAH RANGEL MD Departed Clinic [facility] 08/16/16 5:43am 08/16/16 9: 36am JAH RANGEL MD
--- OUTSIDE RECORDS SUMMARY | 2017-01-17 06:15 | XMS REPORT | Continuity of Care Document ---
Author Author [facility] Organization [facility] Address Unknown Phone Unavailable Care Team Providers Care Soaker Soda Worker Name Role Phone KENNY DUKE DO PCP Insurance Providers Payer Name Policy Number Subscriber Name [id number] Net[facility]as 19 Father Advance Directives Directive Response Recorded Date/Time Advance Directives No 08/19/16 12:15pm Health Care Power of Etch Operator [employer] Wafers No 08/19/16 12:15pm Organ Donor No 08/19/16 [...] Type Severity Reaction Status Last Updated iodine ([id number]) Allergy Unknown Active 09/05/14 Immunizations No immunization records. Vital Signs Acute Vital Signs Vital Response Date/Time Temperature (Fahrenheit) 98.8 degrees F (97.6 - 99.5) 08/19/2016 2:50pm Temperature (Calculated Celsius) 37.91934 degrees C (36.4 - 37.5) 08/19/2016 2:50pm [...] 6.00 inches 08/19/2016 12:15pm Height (Calculated Centimeters) 167.754472 cm 08/19/2016 12:15pm Weight (Pounds) 135 pounds 08/19/2016 12:15pm Weight (Ounces) 0.0 oz 08/19/2016 12:15pm Weight (Calculated Grams) 53835.97 gm 08/19/2016 12:15pm Weight (Calculated Kilograms) 61.244451 kilograms 08/19/2016 12:15pm Calculated BMI 21.8 08/19/2016 12:15pm Results No known relevant diagnostic tests, laboratory data and/or discharge summary. Procedures Procedure Status Date Provider(s) Esophagogastroduodenoscopy (EGD) with dilation Completed 08/19/16 JAH RANGEL MD Encounters Encounter Location Arrival/Admit Date Discharge/Depart Date Attending Provider Departed [facility] 08/19/16 11:29am 08/19/16 2:50pm JAH RANGEL MD Departed Clinic [facility] 08/16/16 5:43am 08/16/16 9: 36am JAH RANGEL MD
[2017-01-17 06:30] VITALS: BP 115/81
[2017-01-17] MEDS ORDERED: LACTATED RINGERS 1,000 ML IV PRN (06:55)
[2017-01-17] MEDS ORDERED: MIDAZOLAM 2 MG/2 ML (VERSED) VIAL ONE (06:56)
[2017-01-17] MEDS ORDERED: LIDOCAINE PF 2% 10 ML (XYLOCAINE) AMP ONE (06:56)
[2017-01-17] MEDS ORDERED: ONDANSETRON 4 MG/2 ML (SDV) Z0FRAN ONE (06:56)
[2017-01-17] MEDS ORDERED: LACTATED RINGERS 1,000 ML IV ONE ×2 (06:56→07:47)
[2017-01-17] MEDS ORDERED: proPOfol 200 MG/20 ML (DIPRIVAN) VIAL IV ONE (06:56)
[2017-01-17] MEDS ORDERED: fentaNYL INJECTION 100 MCG/2 ML AMP ONE ×2 (06:57)
[2017-01-17] MEDS ORDERED: DEXAMETHASONE PF 10 MG/ML (DECADRON) VIAL ONE (06:57)
[2017-01-17] MEDS ORDERED: SEVOFLURANE (ULTANE) 15 ML INHAL SOLN ONE ×2 (06:57→07:47)
[2017-01-17] MEDS ORDERED: fentaNYL INJECTION 100 MCG/2 ML AMP IV ONE (07:00)
--- NOTE | 2017-01-17 07:15 | Progress Note-Pre Operative ---
Pre-Operative Progress Note H&P Reviewed The H&P was reviewed, patient examined and no changes noted. Date H&P Reviewed: Jan 17, 2017 Time H&P Reviewed: 07:15 Pre-Operative Diagnosis: Incomplete Ab RAMON SMART DO Jan 17, 2017 7:15 am
--- NOTE | 2017-01-17 07:19 | Discharge Inst-Women's Service ---
Discharge Inst-Women's Serv Depart Medication/Instructions New, Converted or Re-Newed RX: RX on Chart Consults/Follow Up Additional Follow Up: Yes Activity Activity: Activity as Tolerated Driving Instructions: You May Drive (do not drive while taking hydrocodone) NO SMOKING: NO SMOKING Nothing Inside Vagina: No Douching, No [place], No Tampons Diet Discharge Diet: No Restrictions Symptoms to Report to : Bleeding Excessive, Pain Increased, Fever Over 101 Degrees F, Vaginal Bleeding Increase, Questions/Concerns For Any Problems or Questions: Contact Your Physician Skin/Wound Care Bathing Instructions: Shower (x 2 weeks) RAMON SMART DO Jan 17, 2017 7:19 am
[2017-01-17] MEDS ORDERED: HYDR-757 PO (07:20)
[2017-01-17] MEDS ORDERED: IBUP-1773 PO (07:20)
[2017-01-17] MEDS ORDERED: D5 LR IV SOLUTION 1,000 ML IV SCH (07:22)
[2017-01-17] MEDS ORDERED: KETOROLAC 30 MG/ML VIAL IVP ONE (07:30)
[2017-01-17] MEDS ORDERED: ONDANSETRON 4 MG/2 ML (SDV) Z0FRAN IVP PRN ×2 (07:30→08:00)
[2017-01-17] MEDS ORDERED: MEPERIDINE (DEMEROL) INJ 50 MG/ML ONE (07:59)
[2017-01-17] MEDS ORDERED: HYDROmorphone (DILAUDID) 2 MG/ML VIAL IVP PRN (08:00)
[2017-01-17] MEDS ORDERED: PROMETHAZINE INJ 25 MG/ML (PHENERGAN) AMP IVP PRN (08:00)
[2017-01-17] MEDS: MEPERIDINE (DEMEROL) INJ 50 MG/ML IVP PRN ×2 (08:01→08:04)
[2017-01-17] MEDS: morphine INJ 10 MG/ML 1ML (SYR OR VIAL) IVP PRN ×2 (08:13→08:17)
[2017-01-17 08:40] VITALS: BP 113/75
[2017-01-17] MEDS ORDERED: HYDROcodone/APAP 5 MG/325 MG (LORTAB) TAB PO ONE (09:05)
[2017-01-17] MEDS ORDERED: HYDROcodone/APAP 5 MG/325 MG (LORTAB) TAB ONE (09:09)
[2017-01-17 09:10] VITALS: BP 104/64
[2017-01-17 09:40] VITALS: BP 108/72
[2017-01-17 10:05] VITALS: BP 108/72
--- NOTE | 2017-01-18 20:59 | PROCEDURE REPORT ---
PROCEDURE PHYSICIAN: RAMON SMART DATE OF PROCEDURE: 01/17/2017 PREOPERATIVE DIAGNOSIS: Incomplete AB. POSTOPERATIVE DIAGNOSIS: Incomplete AB. PROCEDURE: Suction D and C. SURGEON: Dr. Ramon Smart. ANESTHESIA: General endotracheal. ESTIMATED BLOOD LOSS: 100 mL. URINE OUTPUT: 200 mL, clear and drained at the end of procedure. FLUIDS: 1 liter of lactated ringer solution. FINDINGS: Grossly normal appearing vagina, cervix and uterine cavity depth with a moderate amount of products of conception and products of conception found in the vaginal vault at the time of prepping the patient. SPECIMEN SENT: Products of conception. INDICATIONS FOR THE PROCEDURE: This patient was seen in my office multiple times in the past 2 weeks for the possibility of a missed AB which turned into an incomplete AB as the patient had went to the emergency department with bleeding and found to have a nonviable intrauterine . Her beta-hCG levels were dropping. I discussed with the patient proceeding with more conservative management and allowing her to pass the on her own without any help; however, the patient wished to proceed with a more aggressive and definitive treatment for this as she has fears of ongoing bleeding and pain as she is in a significant amount of cramping pain during this miscarriage process. I discussed with her proceeding with suction D&C. Risks of the procedure were discussed with the patient in detail. After all of her questions were answered, consent is obtained in the preoperative area and the patient is taken the operating room. OPERATIVE REPORT IN DETAIL: Once in the operating room, general anesthesia is found to be adequate. She is placed in dorsal lithotomy position, prepped and draped in normal sterile fashion. I first examine the patient under anesthesia. The uterus is mildly enlarged, approximately 6 to 8 weeks size. There is no adnexal fullness or masses appreciated on bimanual examination. A weighted speculum is inserted into the patient's vagina. A right angle retractor is used to visualize the cervix. It is grasped at the 12 o'clock position using a long Allis clamp. I then gently sound the uterine cavity depth which is found to be approximately 8 cm. I also find a large amount of tissue in the posterior vaginal vault. This is collected and sent as products of conception with the rest of the specimen. Due to persistent bleeding, I do go ahead and select a number 6 flexible Osborne curette tip and advance it into the of intrauterine cavity. No dilation is needed at that point. I then activate the Jeff suction device and allow it to reach a pressure of 55 mmHg at which point, I methodically and circumferentially clear the endometrial and uterine cavity of the products of conception. I then after making several passes in a circular motion, perform a gentle sharp curette using a small to medium size endometrial curette. All of this tissue is collected and sent as endometrial curettings. I finally take 1 final pass using the Jeff curette. There is no active bleeding noted after I have completed the procedure. I then remove the Allis from the patient's cervix and remove the weighted speculum and drain the bladder using straight catheterization. The patient tolerated the procedure well and was taken to recovery area in stable condition. Lap and sponge counts are correct end of procedure. Instrument count is correct as well. A timeout is performed before starting the procedure. Job ID: [id number] Dictated Date: 01/17/2017 08:39:48 Clinical Biochemical Geneticist Date: 01/18/2017 20:50:57 / jean marie
== END 2017-01-17 10:05 | disposition home or self-care (01) ==
LOC: SDC 06:05
PROVIDERS: ATTEND Obstetrics & Gynecology
DX: O03.4 Incomplete spontaneous abortion without complication (principal)
CPT/HCPCS: 88305; 94664

== ENCOUNTER → 2017-05-19 | Outpatient (CLI) | payer BC ==
[~2017-05-19] VITALS: Ht 167.6 cm; Wt 63.2 kg
[~2017-05-19] MED LIST changes: +KETOROLAC 30 MG/ML VIAL IVP ONE; +LACTATED RINGERS 1,000 ML IV SCH; +ONDANSETRON 4 MG/2 ML (SDV) Z0FRAN IVP ONE; +birth control pill PO; +cefTRIAXone 1 GM/NS 50 ML IVPB IV ONE
[2017-05-19 12:30] VITALS: BP 122/79
[2017-05-19 14:10] VITALS: BP 122/79
[2017-05-19 14:14] VITALS: BP 122/79
[2017-05-19 14:15] LABS: BILIRUBIN,URINE NEGATIVE (NEGATIVE); KETONES,URINE 3+ (NEGATIVE); LEUKOCYTE ESTERASE ,URINE NEGATIVE (NEGATIVE); NITRITE,URINE NEGATIVE (NEGATIVE); PH,URINE 6 (5-9); PROTEIN,URINE 2+ (NEGATIVE); UROBILINOGEN,URINE NORMAL (NORMAL)
[2017-05-19 14:23] LABS: WBC,URINE RARE /HPF
== END ==
LOC: SDC 11:41
PROVIDERS: ATTEND Nurse Practitioner Family
DX: E86.0 Dehydration (principal); N39.0 Urinary tract infection, site not specified; G43.909 Migraine, unspecified, not intractable, without status migrainosus; R78.81 Bacteremia; R80.9 Proteinuria, unspecified
CPT/HCPCS: 81000; 96365; 96366; 96374; 96375

== ENCOUNTER → 2017-05-23 | Outpatient (CLI) | payer BC ==
[~2017-05-23] VITALS: Ht 167.6 cm; Wt 63.6 kg
[~2017-05-23] MED LIST changes: -KETOROLAC 30 MG/ML VIAL IVP ONE; -LACTATED RINGERS 1,000 ML IV SCH; -ONDANSETRON 4 MG/2 ML (SDV) Z0FRAN IVP ONE; -cefTRIAXone 1 GM/NS 50 ML IVPB IV ONE
--- NOTE | 2017-05-23 12:13 | Diagnostic Imaging Report ---
PROCEDURE: MR imaging of the brain without contrast. INDICATION: Recently tested positive for Lyme disease. Constant headache x2 months TECHNIQUE: Multiplanar, multisequence MR imaging of the brain was performed without contrast. CORRELATION STUDY: None FINDINGS: The ventricles and sulci appearing unremarkable. Normal dumont white differentiation is present. No definitive hyperintense T2 plaque-like or multiple sclerosis like lesions demonstrated. No midline shift or mass effect. There are no restricted areas of diffusion. Basilar cisterns maintained. Visualized 7th and eighth cranial nerve complex appearing unremarkable. Normal expected intracranial flow voids. Craniocervical junction midline structures with sella appearing unremarkable. Paranasal sinuses and mastoid air cells are clear. Postcontrast assessment unable to be performed given no IV contrast administration. IMPRESSION: 1. Unremarkable noncontrast MRI examination of the brain. If further assessment is desired, post contrast imaging would be recommended. Dictated by: Dictated on workstation # [id number]
[2017-05-23 12:20] VITALS: BP 121/89
[2017-05-23 13:06] LABS: MEAN PLATELET VOLUME 9.9 FL (7.4-10.4); RED BLOOD COUNT 4.42 10^6/uL (4.35-5.85); RED CELL DISTRIBUTION WIDTH 14.1 % (10.0-14.5); WHITE BLOOD COUNT 5.6 10^3/uL (4.3-11.0)
[2017-05-23 13:54] VITALS: BP 121/89
--- NOTE | 2017-05-23 14:04 | Progress Note-Standard ---
Standard Progress Note Progress Notes/Assess & Plan Date Seen by Provider: May 23, 2017 Time Seen by Provider: 13:20 Progress/Assessment & Plan Anesthesia Note ([id number]) Pt sent here for Dx Lumbar Puncture due to headache, blurry vision and nausea for the last month or so. She had a recent MRI Brain which showed no C/I to lumbar puncture. Plt count of 280,000 today. +/- lumbar puncture discussed with patient. Questions answered and consent signed. Pt to Rt lateral position. Sterile P/D with ChloraPrep. 2 mL 1% lidocaine for local at L3-4 level. 25 G Boo needle used and space located with ease. + clear CSF after redirect times one. Neg heme/paresthesias. Opening pressure of 12 cm CSF noted. ~ 2-3 mL CSF times 4 vials sent to lab per ordering physician. Sterile bandage applied. Pt tolerated the procedure well. Instructed her on the symptoms of a PDPH and to drink fluids/caffeine if she notices these symptoms. She is to call with any questions or concerns or if symptoms of PDPH develop and do not improve with initial treatment. She is to follow up with her physician as scheduled. KRIS PONCE DO May 23, 2017 14:04
[2017-05-23 14:33] LABS: CSF GLUCOSE 60 MG/DL (50-80); CSF TOTAL PROTEIN 18 MG/DL (15-40)
[2017-05-23 14:47] LABS: APPEARANCE,CSF CLEAR; COLOR,CSF COLORLESS; WHITE BLOOD CELL,CSF 0 CELLS (0-5)
== END ==
LOC: RAD 11:17
PROVIDERS: ATTEND Nurse Practitioner Family
DX: R51 Headache (principal); H53.9 Unspecified visual disturbance; A69.20 Lyme disease, unspecified
CPT/HCPCS: 36415; 70551; 82945; 84157; 85027; 87070; 87116; 87205; 87252; 89051

== ENCOUNTER 2017-05-28 07:17 | Outpatient (RCR) | payer BC ==
[2017-06-02] MEDS ORDERED: PROM25TA14 PO (21:49)
== END 2017-08-16 | disposition home or self-care (01) ==
LOC: LAB 07:17
PROVIDERS: ATTEND Nurse Practitioner Family
DX: R80.9 Proteinuria, unspecified (principal)
CPT/HCPCS: 84156

== ENCOUNTER → 2017-05-29 | Outpatient (CLI) | payer BC ==
[2017-05-29 10:39] LABS: PEP REPORT SEE PATH REPORT
== END ==
LOC: LAB 10:06
PROVIDERS: ATTEND Internal Medicine
DX: R80.9 Proteinuria, unspecified (principal)
CPT/HCPCS: 36415; 84155; 84165

== ENCOUNTER 2017-06-02 19:39 | Emergency (ER) | payer BC ==
[~2017-06-02] VITALS: Ht 167.6 cm; Wt 63.5 kg
--- NOTE | 2017-06-02 20:09 | ED Headache ---
General Chief Complaint: General Problems/Pain Stated Complaint: BACK/CHEST PAIN,BLURRY VISION,VOMITING,HEADACHE Nursing Triage Note: C/O CHEST/BACK PAIN, BLURRED VISION X 2MONTHS. Nursing Sepsis Screen: No Definite Risk Source: patient Exam Limitations: no limitations History of Present Illness Time seen by provider: 20:02 Initial Comments Patient presents with a constellation of symptoms to the ER by private conveyance. Her main concern is that for the past 2 months she has had headaches muscle aches weakness fatigue near falling nausea and vomiting and a very fine petechial rash. She states she was diagnosed a couple weeks ago by Dr. Duke with Lyme's disease and she was started on doxycycline outpatient but after a week of inability to tolerate it due to nausea and vomiting he decided to treat her by IV antibiotics. She has not got her PICC line or started the antibiotic antibiotics yet. This afternoon she was seen in the office by nurse practitioner Salvador and a test was negative. She was having worsening headaches and was given Fioricet. She took one tablet but it did not help her headache at all. She does not have a history of migraines prior to 2 months ago. Her headaches are global all over and hot feeling. This afternoon she started experiencing momentary blindness bilaterally for little more than a minute and when she tech stated nurse practitioner Salvador was told to come to the ER. She states that she had a MRI done [address] Duke looking for a tumor given her symptoms but was told that everything was normal. Allergies and Home Medications Allergies Coded Allergies: iodine (Verified Allergy, Severe, ANAPHYLAXIS, 01/16/17) Home Medications Promethazine HCl 25 Mg Tablet, 25 MG PO Q8H PRN for NAUSEA/VOMITING, #14 Ref 0 Prescribed by: AYE GAY on 06/02/17 2149 [ control pill] , 1 EA PO DAILY, (Reported) Constitutional: No chills, No diaphoresis, dizziness, No fever, malaise, weakness Eyes: See HPI, Blindness, Denies Blurred Vision, Denies Drainage, Denies Pain Ears, Nose, Mouth, Throat: denies ear pain, denies ear discharge Respiratory: No cough, No dyspnea on exertion Cardiovascular: No chest pain, No edema Gastrointestinal: No abdominal pain, No constipation, No diarrhea, nausea, vomiting Genitourinary: No dysuria, No frequency : No (negative hCG in the office today. She also is on oral contraceptives.) Musculoskeletal: No back pain, No joint pain Skin: No pruritus, rash (fine petechial rash without erythema.) Psychiatric/Neurological: See HPI, Headache, Denies Numbness, Denies Paresthesia Past Imkmeyu-Gujfxg-Jczpmp Hx Patient Social History Alcohol Use: Occasionally Uses Recreational Drug Use: No Smoking Status: Never a Smoker 2nd Hand Smoke Exposure: No Recent Foreign Travel: No Contact w/Someone Who Travel: No Recent Infectious Disease Expo: No Recent Hopitalizations: No Immunizations Up To Date Tetanus Booster (TDap): Unknown PED Vaccines UTD: Yes Seasonal Allergies Seasonal Allergies: No Surgeries HX Surgeries: Yes (RIGHT KNEE, WISDOM TEETH, ORAL X2, DXLS) Surgeries: Cystectomy, Gallbladder, Orthopedic, Tonsillectomy Respiratory Hx Respiratory Disorders: No Cardiovascular Hx Cardiac Disorders: Yes Cardiac Disorders: Palpitations Neurological Hx Neurological Disorders: No Reproductive System : No Hx Reproductive Disorders: Yes (PELVIC PAIN, PCOS) Sexually Transmitted Disease: No HIV/AIDS: No Female Reproductive Disorders: Polycystic Ovarian Dis Genitourinary Hx Genitourinary Disorders: Yes Genitourinary Disorders: Kidney Stones Gastrointestinal Hx Gastrointestinal Disorders: Yes Gastrointestinal Disorders: Gastroesophageal Reflux Musculoskeletal Hx Musculoskeletal Disorders: No Endocrine Hx Endocrine Disorders: No HEENT HX ENT Disorders: No Loss of Vision: Denies Hearing Impairment: Denies Cancer Hx Cancer: No Psychosocial Hx Psychiatric Problems: No Integumentary HX Skin/Integumentary Disorder: No Blood Transfusions Hx Blood Disorders: No Adverse Reaction to a Blood Tr: No (N/A) Family Medical History Significant Family History: No Pertinent Family Hx Physical Exam Vital Signs Vital Sign - Last 12Hours 06/02/17 19:50 Temp 99.3 Pulse 98 Resp 18 B/P (MAP) 148/93 Pulse Ox 99 O2 Delivery Room Air Capillary Refill : Less Than 3 Seconds General Appearance: WD/WN, mild distress HEENT: PERRL/EOMI, normal ENT inspection, TMs normal, pharynx normal Neck: full range of motion, supple, normal inspection, other (mild anterior cervical muscle tenderness to palpation) Cardiovascular: normal peripheral pulses, regular rate, rhythm, no edema Respiratory: lungs clear, normal breath sounds, no respiratory distress, no accessory muscle use Gastrointestinal: normal bowel sounds, non tender, soft Back: normal inspection, no vertebral tenderness, CVA tenderness (L) (mild) Extremities: normal range of motion, non-tender, no pedal edema, normal capillary refill Psychiatric: alert, oriented x 3 Crainal Nerves: normal hearing, normal speech, PERRL Coordination/Gait: normal finger to nose, normal gait Motor/Sensory: no motor deficit, no sensory deficit, no pronator drift Reflexes: 2+ Bicep (R), 2+ Bicep (L), 3+ Knee (R), 3+ Knee (L) Skin: normal color, warm/dry, rash (very fine petechial rash) Lymphatic: other (scant shotty anterior bilateral cervical lymphadenopathy) Progress/Results/Core Measures Results/Orders Lab Results Laboratory Tests Test 06/02/17 19:30 06/02/17 20:30 Range/Units Urine Color YELLOW Urine Clarity CLEAR Urine pH 6 5-9 Urine Specific [place] 1.025 H 1.016-1.022 Urine Protein 3+ H NEGATIVE Urine Glucose (UA) NEGATIVE NEGATIVE Urine Ketones NEGATIVE NEGATIVE Urine Nitrite NEGATIVE NEGATIVE Urine Bilirubin NEGATIVE NEGATIVE Urine Urobilinogen NORMAL NORMAL MG/DL Urine Leukocyte Esterase NEGATIVE NEGATIVE Urine RBC (Auto) NEGATIVE NEGATIVE Urine RBC NONE /HPF Urine WBC NONE /HPF Urine Crystals PRESENT H /LPF Urine Calcium Oxalate Crystals MODERATE H /LPF Urine Bacteria NONE /HPF Urine Casts NONE /LPF Urine Mucus NEGATIVE /LPF Urine Culture Indicated NO White Blood Count 8.3 4.3-11.0 10^3/uL Red Blood Count 4.36 4.35-5.85 10^6/uL Hemoglobin 12.1 11.5-16.0 G/DL Hematocrit 37 35-52 % Mean Corpuscular Volume 85 80-99 FL Mean Corpuscular Hemoglobin 28 25-34 PG Mean Corpuscular Hemoglobin Concent 33 32-36 G/DL Red Cell Distribution Width 14.2 10.0-14.5 % Platelet Count 261 130-400 10^3/uL Mean Platelet Volume 9.6 7.4-10.4 FL Neutrophils (%) (Auto) 57 42-75 % Lymphocytes (%) (Auto) 30 12-44 % Monocytes (%) (Auto) 11 0-12 % Eosinophils (%) (Auto) 2 0-10 % Basophils (%) (Auto) 1 0-10 % Neutrophils # (Auto) 4.7 1.8-7.8 X 10^3 Lymphocytes # (Auto) 2.5 1.0-4.0 X 10^3 Monocytes # (Auto) 0.9 0.0-1.0 X 10^3 Eosinophils # (Auto) 0.2 0.0-0.3 10^3/uL Basophils # (Auto) 0.0 0.0-0.1 10^3/uL Erythrocyte Sedimentation Rate 13 0-20 MM/HR Sodium Level 140 135-145 MMOL/L Potassium Level 3.7 3.6-5.0 MMOL/L Chloride Level 109 H 98-107 MMOL/L Carbon Dioxide Level 23 21-32 MMOL/L Anion Gap 8 5-14 MMOL/L Blood Urea Nitrogen 11 7-18 MG/DL Creatinine 0.93 0.60-1.30 MG/DL Estimat Glomerular Filtration Rate > 60 BUN/Creatinine Ratio 12 Glucose Level 95 70-105 MG/DL Lactic Acid Level 0.87 0.50-2.00 MMOL/L Calcium Level 9.3 8.5-10.1 MG/DL Magnesium Level 1.8 1.8-2.4 MG/DL Total Bilirubin 0.3 0.1-1.0 MG/DL Aspartate Amino Transf (AST/SGOT) 13 5-34 U/L Alanine Aminotransferase (ALT/SGPT) 11 0-55 U/L Alkaline Phosphatase 61 40-136 U/L C-Reactive Protein High Sensitivity 0.25 0.00-0.50 MG/DL Total Protein 7.4 6.4-8.2 GM/DL Albumin 4.2 3.2-4.5 GM/DL My Orders Orders - AYE GAY Cbc With Automated Diff (06/02/17 20:10) Comprehensive Metabolic Panel (06/02/17 20:10) Hs C Reactive Protein (06/02/17 20:10) Lactic Acid Analyzer (06/02/17 20:10) Magnesium (06/02/17 20:10) Ua Culture If Indicated (06/02/17 20:10) Erythrocyte Sedimentation Rate (06/02/17 20:10) Saline Lock/Iv-Start (06/02/17 20:10) Ns Iv 1000 Ml (Sodium Chloride 0.9%) (06/02/17 20:10) Ketorolac Injection (Toradol Injection) (06/02/17 20:10) Metoclopramide Injection (Reglan Injecti (06/02/17 20:15) Fentanyl Injection (Sublimaze Injection (06/02/17 21:23) Ketorolac Injection (Toradol Injection) (06/02/17 21:23) Promethazine Tablet (Phenergan Tablet) (06/02/17 21:30) Medications Given in ED Current Medications Medications Dose Ordered Sig/Nieves Route Start Time Stop Time Status Last Admin Dose Admin Metoclopramide HCl 10 mg ONCE ONCE IVP 06/02/17 20:15 06/02/17 20:16 DC 06/02/17 20:32 10 MG Promethazine HCl 25 mg ONCE ONCE PO 06/02/17 21:30 06/02/17 21:31 DC 06/02/17 21:39 25 MG Sodium Chloride 1,000 ml @ 0 mls/hr Q0M ONCE IV 06/02/17 20:10 06/02/17 20:16 DC 06/02/17 20:32 0 MLS/HR Vital Signs/I&O Vital Sign - Last 12Hours 06/02/17 06/02/17 06/02/17 19:50 20:32 22:07 Temp 99.3 99.3 98.7 Pulse 98 73 Resp 18 16 B/P (MAP) 148/93 Pulse Ox 99 99 O2 Delivery Room Air Room Air Intake and Output 06/02/17 23:59 Intake Total 1000 ml Balance 1000 ml Blood Pressure Mean: 111 Progress Note : Time: 21:29 Progress Note Patient comes in with pain and blindness and a recent MRI 2 weeks ago that was negative and reviewed. It did recommend getting an MRI with and without contrast. MRI is not available at this time. Doing a CT now on MRI in the morning seems excessive in terms of radiation exposure. She also cannot tolerate iodine contrast into the patient. When she came here her pain was 8 out of 10 global headache and after giving her a 15 mg Toradol and Reglan her pain remains the same. This is not consistent with a migraine in presentation so we will go ahead and treat with a mild amount of opiates and another 15 mg of Toradol. We will give her promethazine both for its antinausea properties which did improve after the Reglan as well as its drowsiness property so she can go home and get some rest. Noted proteins in her urine and was going to order a 24-hour urine protein analysis but she says she has already done that and Manda Duke is aware of this and is following it. She does not know she's had urine protein electrophoresis done. She states she has not had any kidney biopsies her workup on her kidneys. She is outside the normal age range for a monoclonal gammopathy. She is okay with repeating the MRI outpatient tomorrow with and without gadolinium. I gave her a liter fluids however her initial orthostatic blood pressures were normal. The CRP and ESR were normal which indicated no active infection is likely. Consults Consults : Consulting Physician: KENNY DUKE DO Consults Notes Spoke with Dr. Duke at length about the patient. He is well-known to Dr. Duke's nurse practitioner, Karly Duke. There are apparently a lot of social issues in which the patient is not involved with her parents anymore and has recently burned bridges with her grandmother and so is functionally looking at homelessness. Apparently her boyfriend also left her recently. She has been in distress and called the clinic earlier today complaining of depressive thoughts and Dr. Duke's group has been working with her as well as her counselor. This is an ongoing situation and after filling and some background of what workup has been done to include a urine protein electrophoresis which the results are not back, Dr. Duke says he will also touch bases with a counselor jennifer to close the loop with the patient after she gets out of the ER. He is okay with her getting an MRI with and without contrast tomorrow outpatient. The patient had an MRI 2 weeks ago with these symptoms as well as a lumbar puncture with a normal opening pressure and no evidence of any infectious or other abnormalities seen on the studies. No evidence of multiple sclerosis was seen on the initial MRI. Departure Impression Impression: Primary Impression: Headache Qualified Codes: R51 - Headache Additional Impression: Vision disturbance Disposition: 01 HOME, SELF-CARE Condition: Improved Departure-Patient Inst. Decision time for Depature: 21:52 Referrals: KENNY DUKE DO (PCP/Family) Primary Care Physician Add. Discharge Instructions: Your headaches with transient blindness is a concerning symptom and therefore we would get you an MRI with contrast done outpatient. Call the MRI office tomorrow morning after 8 AM and get an appointment set up. You should also follow up with Dr. Duke. If you're having new or worsening symptoms such as permanent blindness or it's becoming more frequent or other symptoms such as fever nausea or shortness of breath than you should return to the ER. Touch bases with your counselor jennifer if possible. If you're having nausea I have sent a prescription for promethazine to be taken 1 tablet every 8 hours as needed. If the promethazine makes you too tired or you are still sleepy in the morning after waking up then you can cut the tablet in half. The protein in your urine sounds like it is very appropriately being worked up outpatient so you will not need to do the protein electrophoresis as Dr. Duke has already ordered this and he is awaiting results. All discharge instructions reviewed with patient and/or family. Voiced understanding. Scripts Promethazine HCl (Promethazine Tablet) 25 Mg Tablet 25 MG PO Q8H Y for NAUSEA/VOMITING, #14 TAB 0 Refills Prov: AYE GAY 06/02/17 Work/School Note: Work Release Form Date Seen in the Emergency Department: Jun 02, 2017 Return to Work: Jun 03, 2017 Restrictions: No Restrictions Copy Copies To 1: KENNY DUKE DO AYE GAY Jun 02, 2017 20:09
[2017-06-02] MEDS ORDERED: NS IV 1000 ML 1,000 ML IV ONE (20:10)
[2017-06-02] MEDS ORDERED: KETOROLAC 30 MG/ML VIAL IVP STA ×2 (20:10→21:23)
[2017-06-02] MEDS ORDERED: METOCLOPRAMIDE INJ 10 MG/2 ML (REGLAN) IVP ONE (20:15)
[2017-06-02 20:21] LABS: BILIRUBIN,URINE NEGATIVE (NEGATIVE); KETONES,URINE NEGATIVE (NEGATIVE); LEUKOCYTE ESTERASE ,URINE NEGATIVE (NEGATIVE); NITRITE,URINE NEGATIVE (NEGATIVE); PH,URINE 6 (5-9); PROTEIN,URINE 3+ (NEGATIVE); UROBILINOGEN,URINE NORMAL (NORMAL)
[2017-06-02 20:28] LABS: CALCIUM OXALATE CRYSTALS,UR MODERATE /LPF
[2017-06-02 20:40] LABS: BASOPHILS % (AUTO) 1 % (0-10); EOSINOPHILS # (AUTO) 0.2 10^3/uL (0.0-0.3); EOSINOPHILS % (AUTO) 2 % (0-10); LYMPHOCYTES # (AUTO) 2.5 X 10^3 (1.0-4.0); LYMPHOCYTES % (AUTO) 30 % (12-44); MEAN CORPUSCULAR HEMOGLOBIN 28 PG (25-34); MEAN CORPUSCULAR HGB CONC 33 G/DL (32-36); MEAN CORPUSCULAR VOLUME 85 FL (80-99); MEAN PLATELET VOLUME 9.6 FL (7.4-10.4); MONOCYTES # (AUTO) 0.9 X 10^3 (0.0-1.0); MONOCYTES % (AUTO) 11 % (0-12); NEUTROPHILS # (AUTO) 4.7 X 10^3 (1.8-7.8); NEUTROPHILS % (AUTO) 57 % (42-75); PLATELET COUNT 261 10^3/uL (130-400); RED BLOOD COUNT 4.36 10^6/uL (4.35-5.85); RED CELL DISTRIBUTION WIDTH 14.2 % (10.0-14.5); WHITE BLOOD COUNT 8.3 10^3/uL (4.3-11.0)
[2017-06-02 20:58] LABS: ALANINE AMINOTRANSFERASE 11 U/L (0-55); ALBUMIN 4.2 GM/DL (3.2-4.5); ANION GAP 8 MMOL/L (5-14); ASPARTATE AMINO TRANSFERASE 13 U/L (5-34); BILIRUBIN,TOTAL 0.3 MG/DL (0.1-1.0); BLOOD UREA NITROGEN 11 MG/DL (7-18); BUN/CREATININE RATIO 12; CALCIUM 9.3 MG/DL (8.5-10.1); CARBON DIOXIDE 23 MMOL/L (21-32); CHLORIDE 109 MMOL/L (98-107); CREATININE SERUM 0.93 MG/DL (0.60-1.30); GFR ESTIMATED > 60; GLUCOSE 95 MG/DL (70-105); MAGNESIUM 1.8 MG/DL (1.8-2.4); POTASSIUM 3.7 MMOL/L (3.6-5.0); SODIUM 140 MMOL/L (135-145); TOTAL PROTEIN 7.4 GM/DL (6.4-8.2); hs C REACTIVE PROTEIN 0.25 MG/DL (0.00-0.50)
[2017-06-02 20:59] LABS: ERYTHROCYTE SEDIMENTATION RATE 13 MM/HR (0-20)
[2017-06-02] MEDS ORDERED: fentaNYL INJECTION 100 MCG/2 ML AMP IVP STA (21:23)
[2017-06-02] MEDS ORDERED: PROMETHAZINE 25 MG (PHENERGAN) TAB PO ONE (21:30)
[2017-06-02] MEDS ORDERED: PROM25TA14 PO (21:49)
[2017-06-02 22:07] VITALS: BP 119/72
== END 2017-06-02 22:07 | disposition home or self-care (01) ==
LOC: EDUNIT# 19:39 → ER 19:42
DX: R51 Headache (principal); H53.9 Unspecified visual disturbance; K21.9 Gastro-esophageal reflux disease without esophagitis; Z90.6 Acquired absence of other parts of urinary tract; Z86.19 Personal history of other infectious and parasitic diseases; Z87.42 Personal history of other diseases of the female genital tract; Z87.442 Personal history of urinary calculi
CPT/HCPCS: 36415; 80053; 81000; 83605; 83735; 85025; 85652; 86141; 96361; 96374; 96375; 96376

== ENCOUNTER → 2019-01-20 | Outpatient (CLI) | payer BC, MEDICAID ==
[~2019-01-20] MED LIST changes: -HYDR-3454 PO; +HYDR-3455 PO; +HYDR-4226 PO; +METF-397 PO; -METF500T4 PO; +PROM25TA14 PO
--- NOTE | 2019-01-20 12:55 | Diagnostic Imaging Report ---
INDICATION: survey. TECHNIQUE: Multiple real-time grayscale images were obtained over the gravid uterus. COMPARISON: None. FINDINGS: There is a single live fetus in a cephalic presentation. heart rate was recorded at 155 beats per minute. The placenta is posterior. Amniotic fluid volume is normal. survey demonstrates kidneys, bladder, and stomach to be unremarkable. The head is limited in evaluation due to low position. This also limits evaluation of the cervix. There is a four-chamber heart. There is a three-vessel cord with normal insertion. The spine is unremarkable. Biometrical measurements are as follows: Biparietal 4.91 cm, age 20 weeks 6 days. Head circumference 17.57 cm, age 20 weeks 1 days. Abdominal circumference 15.07 cm, age 20 weeks 3 days. Femur length 3.31 cm, age 20 weeks 3 days. Sonographic estimate age: 20 weeks 4 days. Sonographic estimated date of delivery: 06/05/2019. Estimated Weight: 346 gm (+/- 51 gm). LMP percentile: 47%. heart rate: 155 beats per minute. number: 1 of 1. IMPRESSION: Single live IUP at 20 weeks 4 days gestational age. Estimated date of confinement sonographically is 06/05/2019. survey is unremarkable, although the head is limited in evaluation due to position. Followup could be performed. Dictated by: Dictated on workstation # [id number]
== END ==
LOC: RAD 09:51
PROVIDERS: ATTEND Obstetrics & Gynecology
DX: Z36.89 Encounter for other specified antenatal screening (principal); Z3A.20 20 weeks gestation of pregnancy
CPT/HCPCS: 76805

== ENCOUNTER 2019-03-24 10:00 | Outpatient (CLI) | payer BC, MEDICAID ==
[~2019-03-24] VITALS: Ht 167.6 cm; Wt 60.3 kg
--- NOTE | 2019-03-24 10:00 | NUR ---
SUNITHA ARENAS presented to unit via ambulation from home, accompanied by family , with c/o BACK PAIN/FEVER 29 WKS PREG. SUNITHA ARENAS weighed, gowned, voided, and to bed. EFHM and TOCO applied, VS taken. SUNITHA ARENAS oriented to bed controls, call light, TV, heat, and A/C controls.
[2019-03-24 10:10] VITALS: BP 119/78
[2019-03-24] MEDS ORDERED: FERR-84 PO (10:30)
[2019-03-24] MEDS ORDERED: DIPH25TA65 PO (10:31)
[2019-03-24] MEDS ORDERED: PREN-37 PO (10:31)
--- NOTE | 2019-03-24 10:46 | NUR ---
This RN notified Dr. Howard of pt. arrival and complaints. Orders received for CBC and UA via telephone with readback.
[2019-03-24 11:05] LABS: BILIRUBIN,URINE NEGATIVE (NEGATIVE); CLARITY,URINE SLIGHTLY CLOUDY; COLOR,URINE YELLOW; GLUCOSE, URINE (UA) NEGATIVE (NEGATIVE); KETONES,URINE NEGATIVE (NEGATIVE); LEUKOCYTE ESTERASE ,URINE 3+ (NEGATIVE); NITRITE,URINE NEGATIVE (NEGATIVE); PH,URINE 6.5 (5-9); PROTEIN,URINE 2+ (NEGATIVE); UROBILINOGEN,URINE NORMAL (NORMAL)
[2019-03-24 11:06] LABS: BASOPHILS % (AUTO) 0 % (0-10); EOSINOPHILS # (AUTO) 0.1 10^3/uL (0.0-0.3); EOSINOPHILS % (AUTO) 1 % (0-10); HEMATOCRIT 27 % (35-52); HEMOGLOBIN 8.8 G/DL (11.5-16.0); LYMPHOCYTES # (AUTO) 1.2 X 10^3 (1.0-4.0); LYMPHOCYTES % (AUTO) 9 % (12-44); MEAN CORPUSCULAR HEMOGLOBIN 29 PG (25-34); MEAN CORPUSCULAR HGB CONC 33 G/DL (32-36); MEAN CORPUSCULAR VOLUME 88 FL (80-99); MEAN PLATELET VOLUME 8.3 FL (7.4-10.4); MONOCYTES # (AUTO) 1.1 X 10^3 (0.0-1.0); MONOCYTES % (AUTO) 8 % (0-12); NEUTROPHILS # (AUTO) 11.1 X 10^3 (1.8-7.8); NEUTROPHILS % (AUTO) 82 % (42-75); PLATELET COUNT 346 10^3/uL (130-400); RED CELL DISTRIBUTION WIDTH 15.1 % (10.0-14.5); WHITE BLOOD COUNT 13.6 10^3/uL (4.3-11.0)
[2019-03-24 11:16] LABS: BACTERIA,URINE MODERATE /HPF; RBC,URINE 0-2 /HPF; WBC,URINE >100 /HPF
--- NOTE | 2019-03-24 11:34 | NUR ---
Dr. Howard called and this RN reported CBC and UA. Orders received via telephone with readback for discharge and to instruct the pt. to continue taking keflex and Iron as prescribed.
--- NOTE | 2019-03-24 12:15 | NUR ---
Discharge instructions explained and pt. signed to verify understanding. Pt. ambulated of unit without difficulty. No S/S of distress noted. All personal belongings in pt. possession.
== END 2019-03-24 12:15 | disposition home or self-care (01) ==
LOC: LDRP 10:00 → WSo 10:00
PROVIDERS: ATTEND Obstetrics & Gynecology
DX: O99.89 Other specified diseases and conditions complicating pregnancy, childbirth and the puerperium (principal); R50.9 Fever, unspecified; M54.9 Dorsalgia, unspecified; Z3A.29 29 weeks gestation of pregnancy
CPT/HCPCS: 36415; 81000; 85025; 87088; 99213

== ENCOUNTER 2019-05-15 16:53 | Outpatient (CLI) | payer BC, MEDICAID ==
--- NOTE | 2019-05-15 16:49 | NUR ---
SUNITHA ARENAS presented to unit via ambulation with c/o DECREASED MOVEMENT. Pt. weighed, gowned, voided, and to bed. EFHM and TOCO applied, VS taken. Pt. oriented to bed controls, call light, TV, heat, and A/C controls.
[~2019-05-15 16:53] MED LIST changes: +DIPH25TA65 PO; +FERR-84 PO; +PREN-37 PO
--- NOTE | 2019-05-15 17:31 | NUR ---
was called r/t pt's admission c/o. dismissal orders received.
--- NOTE | 2019-05-15 17:43 | NUR ---
dismissal instructions given, verbalizes understanding. signature page signed, placed on chart. reviewed kick counts with pt, information given. encouraged increasing daily water intake. water jug given to pt. pt ambulated to private vehicle by self. no sx's of distress noted. pt stable upon dismissal.
[2019-05-15 17:48] VITALS: BP 122/73
--- NOTE | 2019-05-18 11:52 | Physician Query-Final Dx ---
FUAD LINARES 05/18/19 1152: Final Diagnosis Give Final Diagnosis Please give Final Diagnosis Dr Durant Please give a final diagnosis. Please indicate the weeks of gestation. thank you SHAKIRA DURANT DO 05/31/19 0704: Final Diagnosis Give Final Diagnosis Intrauterine at 36 weeks 2. Pelvic Pain 3. Headache FUAD LINARES May 18, 2019 11:52 SHAKIRA DURANT DO May 31, 2019 07:04
[2019-05-19] MEDS ORDERED: DOCU100C37 PO (21:05)
[2019-05-19] MEDS ORDERED: IBUP-844 PO (21:05)
[2019-05-19] MEDS ORDERED: ACHD5005 PO (21:05)
[2019-05-19] MEDS ORDERED: Benzocaine/Menthol TP (21:05)
[2019-05-21] MEDS ORDERED: FERR325T18 PO (08:38)
== END 2019-05-15 17:43 | disposition home or self-care (01) ==
LOC: LDRP 16:53 → WSo 16:53
PROVIDERS: ATTEND Obstetrics & Gynecology
DX: O99.89 Other specified diseases and conditions complicating pregnancy, childbirth and the puerperium (principal); R10.2 Pelvic and perineal pain; R51 Headache; Z3A.36 36 weeks gestation of pregnancy
CPT/HCPCS: 99212

== ENCOUNTER 2019-05-19 09:03 | Inpatient (IN) | payer BC, MEDICAID ==
[2019-05-19] VITALS (48 sets, daily range): BP systolic 98–137; BP diastolic 55–89
[~2019-05-19] VITALS: Ht 167.6 cm; Wt 62.6 kg
--- NOTE | 2019-05-19 08:55 | NUR ---
Pt arrived to unit ambulates self with c/o contractions and possibly fluid leaking. To room 315. Gowned and to bed. oriented to room, call light and surroundings. Mother at bedside. Plan of care reviewed with pt and mother.
--- NOTE | 2019-05-19 09:36 | NUR ---
Dr Howard notified of pt arrival, c/o, assessment, nit -, bs noted with sve, sve, contractions. New orders for admission.
[2019-05-19] MEDS ORDERED: MINERAL OIL CONCENTRATE 99.9% 15 ML UDC TOP PRN (09:45)
--- NOTE | 2019-05-19 10:00 | NUR ---
Transferred to room 320. Ambulates to room with belongings. pt void and then to bed and monitor resumed.
[2019-05-19] MEDS ORDERED: AMPICILLIN FOR IV USE 2,000 MG in WATER (STERILE) FOR INJECTION 14.8 ML IV ONE (10:10)
[2019-05-19 10:51] LABS: BASOPHILS % (AUTO) 0 % (0-10); EOSINOPHILS # (AUTO) 0.1 10^3/uL (0.0-0.3); EOSINOPHILS % (AUTO) 1 % (0-10); HEMATOCRIT 31 % (35-52); HEMOGLOBIN 10.1 G/DL (11.5-16.0); LYMPHOCYTES # (AUTO) 1.7 X 10^3 (1.0-4.0); LYMPHOCYTES % (AUTO) 15 % (12-44); MEAN CORPUSCULAR HEMOGLOBIN 27 PG (25-34); MEAN CORPUSCULAR HGB CONC 33 G/DL (32-36); MEAN CORPUSCULAR VOLUME 84 FL (80-99); MEAN PLATELET VOLUME 8.7 FL (7.4-10.4); MONOCYTES # (AUTO) 0.8 X 10^3 (0.0-1.0); MONOCYTES % (AUTO) 7 % (0-12); NEUTROPHILS # (AUTO) 8.3 X 10^3 (1.8-7.8); NEUTROPHILS % (AUTO) 76 % (42-75); PLATELET COUNT 383 10^3/uL (130-400); RED CELL DISTRIBUTION WIDTH 16.1 % (10.0-14.5); WHITE BLOOD COUNT 10.8 10^3/uL (4.3-11.0)
[2019-05-19] MEDS ORDERED: SUFENTA 0.6MCG/ML BUPIVA 0.125 100 ML ONE (11:37)
[2019-05-19] MEDS ORDERED: fentaNYL INJECTION 100 MCG/2 ML AMP ONE (11:55)
[2019-05-19] MEDS: D5 LR IV SOLUTION 1,000 ML IV SCH ×2 (12:09→17:49)
[2019-05-19] MEDS ORDERED: BUPIVACAINE 0.25% 30 ML (SENSORCAINE) VIAL ONE (12:30)
[2019-05-19] MEDS ORDERED: LIDOCAINE PF 2% 5 ML (XYLOCAINE) VIAL ONE (12:30)
[2019-05-19] MEDS ORDERED: LACTATED RINGERS 1,000 ML IV ONE ×2 (12:34)
[2019-05-19] MEDS ORDERED: EPIDURAL (SUFENTA 0.6MCG/ML BUPIVA 0.125%) 100 ML BAG EPI PRN (12:45)
[2019-05-19] MEDS ORDERED: NALOXONE 0.4 MG/ML 1 ML (NARCAN) VIAL IV PRN (12:45)
[2019-05-19] MEDS ORDERED: ONDANSETRON 4 MG/2 ML (SDV) Z0FRAN IV PRN (12:45)
--- NOTE | 2019-05-19 12:47 | History & Physical-OB ---
OB - Chief Complaint & HPI Date/Time Date of Admission: Date of Admission: May 19, 2019 at 09:44 Date seen by a Provider: May 19, 2019 Time Seen by a Provider: 12:40 Chief Complaint/History OB-Reason for Admission/Chief: Onset of Labor Hx : 2 Hx Para: 0 Expected Date of Delivery: Jun 07, 2019 Gestational Age in Weeks: 37 Gestational Age in Days: 2 Admission Nurse Assessment Rev: Yes History of Labs A pos Antibody neg RI RPR NR HBsAg NR HIV NR GC neg GBS pos Allergies and Home Medications Allergies Coded Allergies: iodine (Verified Allergy, Severe, ANAPHYLAXIS, 01/16/17) Home Medications Diphenhydramine HCl 25 Mg Tablet, 25 MG PO HS, (Reported) Ferrous Sulfate 325 Mg Tablet, 325 MG PO DAILY, (Reported) Vit/Iron Fumarate/FA 1 Each Tablet, 1 EACH PO DAILY, (Reported) Patient Home Medication List Home Medication List Reviewed: Yes OB - History Hx of Present Care: Yes Ultrasounds: Normal mid trimester US Obstetrical Complications: None Medical Complications: None Obstetrical History Hx : 2 Hx Para: 0 Hx Total # of Abortions (Spona: 1 Delivery History Hx Blood Disorders: No Adverse Rxn to Tranfusion: No (N/A) Patient Past Medical History n/a Social History/Family History HIV/AIDS: No Recent Infectious Disease Expo: No Sexually Transmitted Disease: No Alcohol Use: Denies Use Recreational Drug Use: No 2nd Hand Smoke Exposure: No Immunizations Hepatitis A: No Hepatitis B: No Tetanus Booster (TDap): Unknown OB - Admission Exam Physical Exam Vitals: Vital Signs 05/19/19 05/19/19 10:12 12:23 Temp 97.5 Pulse 68 Resp 18 B/P (MAP) 120/75 (90) Pulse Ox 93 O2 Delivery Room Air HEENT: NCAT Heart: Rhythm Normal Lungs: Clear Abdomen: Gravid Extremities: Normal Reflexes: Normal Cervical Dilatation: 3cm Effacement: 75% Station: 0 Membranes: Intact Heart Rate: 130's Accelerations: Accelerations Present Decelerations: No Decelerations Short Term Variability: Present Retirement Variability: Average (6-25) Contractions on Admission: < 5 Minutes Apart Labs Laboratory Tests Test 05/19/19 10:44 Range/Units White Blood Count 10.8 4.3-11.0 10^3/uL Red Blood Count 3.72 L 4.35-5.85 10^6/uL Hemoglobin 10.1 L 11.5-16.0 G/DL Hematocrit 31 L 35-52 % Mean Corpuscular Volume 84 80-99 FL Mean Corpuscular Hemoglobin 27 25-34 PG Mean Corpuscular Hemoglobin Concent 33 32-36 G/DL Red Cell Distribution Width 16.1 H 10.0-14.5 % Platelet Count 383 130-400 10^3/uL Mean Platelet Volume 8.7 7.4-10.4 FL Neutrophils (%) (Auto) 76 H 42-75 % Lymphocytes (%) (Auto) 15 12-44 % Monocytes (%) (Auto) 7 0-12 % Eosinophils (%) (Auto) 1 0-10 % Basophils (%) (Auto) 0 0-10 % Neutrophils # (Auto) 8.3 H 1.8-7.8 X 10^3 Lymphocytes # (Auto) 1.7 1.0-4.0 X 10^3 Monocytes # (Auto) 0.8 0.0-1.0 X 10^3 Eosinophils # (Auto) 0.1 0.0-0.3 10^3/uL Basophils # (Auto) 0.0 0.0-0.1 10^3/uL OB - Assessment/Plan/Diagnosis Assessment Assessment: active labor Admission Dx 24 yo @ 37 weeks Active labor GBS pos Admission Status: Inpatient Order (span 2 midnights) Reason for Inpatient Admission: Active labor at term Plan Plan: Expectant Management RAMON SMART DO May 19, 2019 12:47
[2019-05-19] MEDS ORDERED: CATHETER FLUSH 10 ML SYR IV SCH ×2 (14:00→22:00)
[2019-05-19] MEDS: AMPICILLIN FOR IV USE 1,000 MG in WATER (STERILE) FOR INJECTION 7.4 ML IV SCH ×2 (14:26→18:55)
[2019-05-19] MEDS ORDERED: OXYTOCIN/NORMAL SALINE 500 ML IV SCH ×2 (16:39→20:59)
[2019-05-19] MEDS ORDERED: OXYTOCIN/NORMAL SALINE 500 ML IV ONE (16:41)
[2019-05-19] MEDS ORDERED: LIDOCAINE/EPI 2% 1:200,00 (XYLOCAINE) 10 ML VIAL ONE (19:10)
[2019-05-19] MEDS ORDERED: TETANUS,DIPTH,PERTUSS P/F (BOOSTRIX) 0.5 ML VIAL IM ONE (21:00)
[2019-05-19] MEDS ORDERED: HYDROcodone/APAP 5 MG/325 MG (LORTAB) TAB PO PRN (21:00)
[2019-05-19] MEDS ORDERED: MEASLES,MUMPS,RUBELLA 1 EA INJ SQ ONE (21:00)
--- NOTE | 2019-05-19 21:03 | OB Labor & Delivery Record ---
L&D History Date of Service Date of Service: May 19, 2019 History Expected Date of Delivery: Jun 07, 2019 Gestational Age in Weeks: 37 Hx : 2 Hx Para: 0 Complications Events: Routine care Operative Indications (Cesarea: N/A-Vaginal Delivery Intrapartal Events: None L&D Stage1 Stage One Onset of Labor - Date: May 19, 2019 Monitors and Tracing Monitor Mode: External Heart Rate: 140 Monitor Accelerations: Uniform Monitor Decelerations: None Station: 0 Halfway Variability: Average (6-10) Short Term Variability: Present Presentation: Vertex Vital Signs VS - Last 72 Hours, by Label 05/19/19 05/19/19 05/19/19 05/19/19 10:12 12:10 12:15 12:20 Temp 97.5 Pulse 64 90 78 67 Resp 16 18 18 18 B/P (MAP) 125/89 (101) 112/67 (82) 118/77 (91) 116/80 (92) Pulse Ox 100 100 100 O2 Delivery Room Air Room Air Room Air Room Air 05/19/19 05/19/19 05/19/19 05/19/19 12:23 12:26 12:30 12:33 Pulse 68 60 64 68 Resp 18 18 18 18 B/P (MAP) 120/75 (90) 116/73 (87) 116/73 (87) 118/80 (93) Pulse Ox 93 100 100 100 O2 Delivery Room Air Room Air Room Air Room Air 05/19/19 05/19/19 05/19/19 05/19/19 12:36 12:40 12:45 13:00 Temp 97.9 Pulse 68 82 82 63 Resp 18 18 18 18 B/P (MAP) 118/71 (87) 116/83 (94) 115/83 (94) 118/71 (87) Pulse Ox 100 100 100 100 O2 Delivery Room Air Room Air Room Air Room Air 05/19/19 05/19/19 05/19/19 05/19/19 13:03 13:15 13:20 13:30 Pulse 70 88 84 110 Resp 18 18 18 18 B/P (MAP) 117/76 (90) 118/75 (89) Pulse Ox 100 98 100 100 O2 Delivery Room Air Room Air Room Air Room Air 05/19/19 05/19/19 05/19/1905/19/19 13:45 13:50 14:00 14:05 Pulse 95 91 79 90 Resp 18 18 18 18 B/P (MAP) 110/60 (77) 116/72 (87) Pulse Ox 97 100 100 97 O2 Delivery Room Air Room Air Room Air Room Air 05/19/19 05/19/19 05/19/19 05/19/19 14:15 14:20 14:30 14:35 Temp 97.4 Pulse 79 70 77 88 Resp 18 18 18 18 B/P (MAP) 107/64 (78) 107/63 (78) Pulse Ox 100 100 100 100 O2 Delivery Room Air Room Air Room Air Room Air 05/19/19 05/19/19 05/19/19 05/19/19 14:45 14:50 15:00 15:05 Pulse 79 82 79 81 Resp 18 18 18 18 B/P (MAP) 110/60 (77) 112/64 (80) Pulse Ox 99 100 100 100 O2 Delivery Room Air Room Air Room Air Room Air 05/19/19 05/19/19 05/19/19 05/19/19 15:15 15:20 15:30 15:35 Pulse 77 62 69 65 Resp 18 18 18 18 B/P (MAP) 101/57 (72) 98/55 (69) Pulse Ox 97 91 100 91 O2 Delivery Room Air Room Air Room Air Room Air 05/19/19 05/19/19 05/19/19 05/19/19 15:45 15:50 16:00 16:05 Pulse 66 69 66 67 Resp 18 18 18 18 B/P (MAP) 102/59 (73) 102/67 (79) Pulse Ox 100 100 100 100 O2 Delivery Room Air Room Air Room Air Room Air 05/19/19 05/19/19 05/19/19 05/19/19 16:15 16:20 16:30 16:35 Temp 98.4 Pulse 66 60 66 63 Resp 18 18 18 18 B/P (MAP) 107/58 (74) 107/63 (78) Pulse Ox 100 100 100 100 O2 Delivery Room Air Room Air Room Air Room Air 05/19/19 05/19/19 05/19/19 05/19/19 16:45 16:50 17:00 17:05 Pulse 66 68 80 Resp 18 18 18 B/P (MAP) 117/82 (94) 126/84 (98) Pulse Ox 100 O2 Delivery Room Air Room Air Room Air Room Air 05/19/19 05/19/19 05/19/19 05/19/19 17:15 17:20 17:30 17:35 Pulse 86 77 Resp 18 18 B/P (MAP) 129/88 (102) 132/83 (99) O2 Delivery Room Air Room Air Room Air Room Air 05/19/19 05/19/19 05/19/19 05/19/19 17:45 17:50 18:00 18:05 Pulse 78 78 Resp 18 18 B/P (MAP) 124/84 (97) 120/80 (93) O2 Delivery Room Air Room Air Room Air Room Air 05/19/19 05/19/19 05/19/19 05/19/19 18:15 18:20 18:30 18:35 Pulse 78 81 Resp 18 18 B/P (MAP) 120/80 (93) 127/86 (100) O2 Delivery Room Air Room Air Room Air Room Air 05/19/19 05/19/19 05/19/19 18:45 18:50 19:00 Pulse 101 Resp 18 B/P (MAP) 122/87 (99) O2 Delivery Room Air Room Air Room Air Rupture of Membranes Spontaneous Ruture of Membrane: No Amniotic Membrane Rupture Time: 1250 Amniotic Membrane Fluid Desc.: Clear Vaginal Bleeding Description: Normal Show Induction/Anesthesia Epidural Cath Placement - Time: 1217 Progress/Notes Pitocin augmentation used due to dysfunctional contraction pattern, she was able to progress to complete and 0 station with max dose of 4mu/min L&D Stage2 Stage Two Stage II Date: May 19, 2019 Monitors and Tracing Monitor Mode: External Heart Rate: 140 Monitor Accelerations: Uniform Monitor Decelerations: Variable Color Paste Mixer Variability: Minimal (3-5) Short Term Variability: Present Position: Right Occiput Anterior Presentation: Vertex Cord Descript/Complications Cord Vessel Description: 3 Vessels Delivery Type Delivery Method: Spontaneous Vaginal Anterior Shoulder: Right Episiotomy/Perineal Laceration Laceraction(s)/Extensions: Yes Episiotomy Description: Right Mediolateral Degree (describe repair) RML repaired using 3-0 rapide and 2-0 vicryl suture Condition of Infant Delivery 1 minute Comment: 7 5 minute Comment: 9 Notes Live female weight 6lbs 7 oz. Condition of Infant Condition of Infant: Living Exam: No Observed Abnormalities Resuscitation Resuscitation: N/A - Spontaneous Resp L&D Stage3 Stage Three Stage III Date: May 19, 2019 Pictocin Pitocin Administration mu/min: 4 Pitocin ml/hr: 4 Pitocin Administration Comment: wide open 30 mu at delivery of placenta Placenta Delivery Placenta Delivery: Spontaneous Delivery Summary Summary Estimated blood loss (mL): 350 Attending at delivery: Sukumar Smart DO Condition of Delivery Examined: Cervix Examined, Uterus Explored Post Hemorrhage: No Condition of Mother stable Condition of (s) stable SUKUMAR SMART DO May 19, 2019 9:03 pm
--- NOTE | 2019-05-19 21:04 | Discharge Inst-Women's Service ---
Discharge Inst-Women's Serv Depart Medication/Instructions New, Converted or Re-Newed RX: RX on Chart Final Diagnosis PPD 2 NVD Consults/Follow Up Orders/Referrals Dr. Smart in 6 weeks Activity Activity: Activity as Tolerated Driving Instructions: No Driving for 1 Week NO SMOKING: NO SMOKING Nothing Inside Vagina: No Douching, No [place], No Tampons Diet Discharge Diet: No Restrictions Symptoms to Report to : Bleeding Excessive, Pain Increased, Fever Over 101 Degrees F, Vaginal Bleeding Increase, Questions/Concerns For Any Problems or Questions: Contact Your Physician RMAON SMART DO May 19, 2019 9:04 pm
[2019-05-19] MEDS ORDERED: IBUP-844 PO (21:05)
[2019-05-19] MEDS ORDERED: ACHD5005 PO (21:05)
[2019-05-19] MEDS ORDERED: Benzocaine/Menthol TP (21:05)
[2019-05-19] MEDS ORDERED: DOCU100C37 PO (21:05)
[2019-05-19] MEDS: BENZOCAINE/MENTHOL (DERMOPLAST) 56 ML CAN TP PRN (23:00)
[2019-05-19] MEDS: WITCH HAZEL(TUCKS) 40 EA JAR TOP PRN (23:00)
--- NOTE | 2019-05-19 23:00 | NUR ---
PT AMBULATED TO BATHROOM WITH STAND BY ASSIST. VOID NOTED. PERICARE DISCUSSED AND DEMONSTRATED. CLEAN VPAD, MESH PANTIES AND GOWN APPLIED. PT TRANSFERRED OVER TO PP ROOM VIA WHEEL CHAIR. ORIENTED TO ROOM, INFO PAPERS EXPLAINED. CALL LIGHT WITHIN REACH.
[2019-05-19] MEDS: IBUPROFEN 600 MG (MOTRIN) TAB PO SCH (23:28)
[2019-05-19] MEDS: DOCUSATE SODIUM 100 MG (COLACE) CAP PO SCH (23:28)
--- NOTE | 2019-05-20 00:50 | NUR ---
PT AWAKE IN BED HOLDING INFANT, TO NSY FOR BATH AT THIS TIME, PT DENIES NEEDS.
[2019-05-20 03:10] VITALS: BP 99/58
--- NOTE | 2019-05-20 03:10 | NUR ---
VSS, pt up to void without difficulty, denies needs.
--- NOTE | 2019-05-20 05:10 | NUR ---
Lab here at this time.
[2019-05-20 05:19] LABS: BASOPHILS % (AUTO) 0 % (0-10); EOSINOPHILS # (AUTO) 0.1 10^3/uL (0.0-0.3); EOSINOPHILS % (AUTO) 1 % (0-10); HEMATOCRIT 26 % (35-52); HEMOGLOBIN 8.4 G/DL (11.5-16.0); LYMPHOCYTES # (AUTO) 2.1 X 10^3 (1.0-4.0); LYMPHOCYTES % (AUTO) 14 % (12-44); MEAN CORPUSCULAR HEMOGLOBIN 27 PG (25-34); MEAN CORPUSCULAR HGB CONC 32 G/DL (32-36); MEAN CORPUSCULAR VOLUME 84 FL (80-99); MEAN PLATELET VOLUME 8.5 FL (7.4-10.4); MONOCYTES # (AUTO) 1.1 X 10^3 (0.0-1.0); MONOCYTES % (AUTO) 7 % (0-12); NEUTROPHILS # (AUTO) 11.8 X 10^3 (1.8-7.8); NEUTROPHILS % (AUTO) 78 % (42-75); PLATELET COUNT 359 10^3/uL (130-400); WHITE BLOOD COUNT 15.1 10^3/uL (4.3-11.0)
[2019-05-20] MEDS: IBUPROFEN 600 MG (MOTRIN) TAB PO SCH ×3 (05:20→18:23)
[2019-05-20 08:12] VITALS: BP 115/64
[2019-05-20] MEDS: DOCUSATE SODIUM 100 MG (COLACE) CAP PO SCH ×2 (08:16→20:27)
[2019-05-20] MEDS: FERROUS SULF 325 MG (IRON) TAB PO SCH (08:16)
[2019-05-20] MEDS: PRENATAL VITAMIN 1 EA TAB PO SCH (08:16)
--- NOTE | 2019-05-20 09:58 | Postpartum Progress Note ---
Note Note Day # 1 s/p Subjective: Patient is without complaints. Ambulating, voiding. Tolerating a regular diet without nausea or vomiting. Normal lochia. Pain is well controlled with oral pain medications. [breast feeding. Objective: Laboratory Tests Test 05/19/19 10:44 05/20/19 05:10 Range/Units White Blood Count 10.8 15.1 H 4.3-11.0 10^3/uL Red Blood Count 3.72 L 3.12 L 4.35-5.85 10^6/uL Hemoglobin 10.1 L 8.4 L 11.5-16.0 G/DL Hematocrit 31 L 26 L 35-52 % Mean Corpuscular Volume 84 84 80-99 FL Mean Corpuscular Hemoglobin 27 27 25-34 PG Mean Corpuscular Hemoglobin Concent 33 32 32-36 G/DL Red Cell Distribution Width 16.1 H 16.0 H 10.0-14.5 % Platelet Count 383 359 130-400 10^3/uL Mean Platelet Volume 8.7 8.5 7.4-10.4 FL Neutrophils (%) (Auto) 76 H 78 H 42-75 % Lymphocytes (%) (Auto) 15 14 12-44 % Monocytes (%) (Auto) 7 7 0-12 % Eosinophils (%) (Auto) 1 1 0-10 % Basophils (%) (Auto) 0 0 0-10 % Neutrophils # (Auto) 8.3 H 11.8 H 1.8-7.8 X 10^3 Lymphocytes # (Auto) 1.7 2.1 1.0-4.0 X 10^3 Monocytes # (Auto) 0.8 1.1 H 0.0-1.0 X 10^3 Eosinophils # (Auto) 0.1 0.1 0.0-0.3 10^3/uL Basophils # (Auto) 0.0 0.0 0.0-0.1 10^3/uL 05/19/19 05/19/19 05/20/19 05/20/19 22:15 22:50 03:10 08:12 Temp 97.8 97.9 98.7 Pulse 87 105 61 69 Resp 18 18 18 18 B/P (MAP) 128/85 (99) 129/88 (102) 99/58 (72) 115/64 (81) O2 Delivery Room Air Room Air Room Air Room Air 05/20/19 00:00 Intake Total 3022.2 ml Output Total 500 ml Balance 2522.2 ml Physical Exam: General - Alert and oriented, no apparent distress Abdomen - Soft, appropriately tender to palpation, non-distended, fundus firm at umbilicus Extremities - no edema, negative Eve's bilaterally Assessment: 1. post- day # 1, status post vaginal delivery. Recovering well, hemodynamically stable Plan: Routine care. Encourage breast feeding. Encourage ambulation. Ferrous sulfate supplementation. Plan for discharge Vitals - Labs Vital Signs - I&O Vital Signs Date Time Temp Pulse Resp B/P (MAP) Pulse Ox O2 Delivery O2 Flow Rate FiO2 05/20/19 08:12 98.7 69 18 115/64 (81) Room Air 05/20/19 03:10 97.9 61 18 99/58 (72) Room Air 05/19/19 22:50 97.8 105 18 129/88 (102) Room Air 05/19/19 22:15 87 18 128/85 (99) Room Air 05/19/19 21:45 89 18 121/73 (89) Room Air 05/19/19 21:30 91 18 122/71 (88) Room Air 05/19/19 21:15 96 18 124/82 (96) Room Air 05/19/19 21:00 94 18 123/78 (93) Room Air 05/19/19 20:45 103 18 117/69 (85) Room Air 05/19/19 19:55 86 20 128/66 (86) Room Air 05/19/19 19:40 113 20 137/78 (97) Room Air 05/19/19 19:35 76 20 128/74 (92) Room Air 05/19/19 19:30 88 20 130/74 (92) Room Air 05/19/19 19:25 85 18 118/78 (91) Room Air 05/19/19 19:20 98.9 74 18 120/80 (93) Room Air 05/19/19 19:00 Room Air 05/19/19 18:50 101 18 122/87 (99) Room Air 05/19/19 18:45 Room Air 05/19/19 18:35 81 18 127/86 (100) Room Air 7/3/19 18:30 Room Air 05/19/19 18:20 78 18 120/80 (93) Room Air 05/19/19 18:15 Room Air 05/19/19 18:05 78 18 120/80 (93) Room Air 05/19/19 18:00 Room Air 05/19/19 17:50 78 18 124/84 (97) Room Air 05/19/19 17:45 Room Air 05/19/19 17:35 77 18 132/83 (99) Room Air 05/19/19 17:30 Room Air 05/19/19 17:20 86 18 129/88 (102) Room Air 05/19/19 17:15 Room Air 05/19/19 17:05 80 18 126/84 (98) Room Air 05/19/19 17:00 Room Air 05/19/19 16:50 68 18 117/82 (94) Room Air 05/19/19 16:45 66 18 100 Room Air 05/19/19 16:35 98.4 63 18 107/63 (78) 100 Room Air 05/19/19 16:30 66 18 100 Room Air 05/19/19 16:20 60 18 107/58 (74) 100 Room Air 05/19/19 16:15 66 18 100 Room Air 05/19/19 16:05 67 18 102/67 (79) 100 Room Air 05/19/19 16:00 66 18 100 Room Air 05/19/19 15:50 69 18 102/59 (73) 100 Room Air 05/19/19 15:45 66 18 100 Room Air 05/19/19 15:35 65 18 98/55 (69) 91 Room Air 05/19/19 15:30 69 18 100 Room Air 05/19/19 15:20 62 18 101/57 (72) 91 Room Air 05/19/19 15:15 77 18 97 Room Air 05/19/19 15:05 81 18 112/64 (80) 100 Room Air 05/19/19 15:00 79 18 100 Room Air 05/19/19 14:50 82 18 110/60 (77) 100 Room Air 05/19/19 14:45 79 18 99 Room Air 05/19/19 14:35 88 18 107/63 (78) 100 Room Air 05/19/19 14:30 77 18 100 Room Air 7/3/19 14:20 97.4 70 18 107/64 (78) 100 Room Air 05/19/19 14:15 79 18 100 Room Air 05/19/19 14:05 90 18 116/72 (87) 97 Room Air 05/19/19 14:00 79 18 100 Room Air 05/19/19 13:50 91 18 110/60 (77) 100 Room Air 05/19/19 13:45 95 18 97 Room Air 05/19/19 13:30 110 18 100 Room Air 05/19/19 13:20 84 18 118/75 (89) 100 Room Air 05/19/19 13:15 88 18 98 Room Air 05/19/19 13:03 70 18 117/76 (90) 100 Room Air 05/19/19 13:00 97.9 63 18 118/71 (87) 100 Room Air 05/19/19 12:45 82 18 115/83 (94) 100 Room Air 05/19/19 12:40 82 18 116/83 (94) 100 Room Air 05/19/19 12:36 68 18 118/71 (87) 100 Room Air 05/19/19 12:33 68 18 118/80 (93) 100 Room Air 05/19/19 12:30 64 18 116/73 (87) 100 Room Air 05/19/19 12:26 60 18 116/73 (87) 100 Room Air 05/19/19 12:23 68 18 120/75 (90) 93 Room Air 05/19/19 12:20 67 18 116/80 (92) 100 Room Air 05/19/19 12:15 78 18 118/77 (91) 100 Room Air 05/19/19 12:10 90 18 112/67 (82) 100 Room Air 05/19/19 10:12 97.5 64 16 125/89 (101) Room Air I & O 05/20/19 07:00 Intake Total 3022.2 ml Output Total 500 ml Balance 2522.2 ml Labs Laboratory Tests 05/19/19 10:44: White Blood Count 10.8, Red Blood Count 3.72L, Hemoglobin 10.1L, Hematocrit 31L, Mean Corpuscular Volume 84, Mean Corpuscular Hemoglobin 27, Mean Corpuscular Hemoglobin Concent 33, Red Cell Distribution Width 16.1H, Platelet Count 383, Mean Platelet Volume 8.7, Neutrophils (%) (Auto) 76H, Lymphocytes (%) (Auto) 15, Monocytes (%) (Auto) 7, Eosinophils (%) (Auto) 1, Basophils (%) (Auto) 0, Neutrophils # (Auto) 8.3H, Lymphocytes # (Auto) 1.7, Monocytes # (Auto) 0.8, Eosinophils # (Auto) 0.1, Basophils # (Auto) 0.0 05/20/19 05:10: White Blood Count 15.1H, Red Blood Count 3.12L, Hemoglobin 8.4L, Hematocrit 26L, Mean Corpuscular Volume 84, Mean Corpuscular Hemoglobin 27, Mean Corpuscular Hemoglobin Concent 32, Red Cell Distribution Width 16.0H, Platelet Count 359, Mean Platelet Volume 8.5, Neutrophils (%) (Auto) 78H, Lymphocytes (%) (Auto) 14, Monocytes (%) (Auto) 7, Eosinophils (%) (Auto) 1, Basophils (%) (Auto) 0, Neutrophils # (Auto) 11.8H, Lymphocytes # (Auto) 2.1, Monocytes # (Auto) 1.1H, Eosinophils # (Auto) 0.1, Basophils # (Auto) 0.0 DANIA MERRILL DO May 20, 2019 09:58
--- NOTE | 2019-05-20 10:15 | NUR ---
Dr. Ovalles here to round on pt for Dr. Howard. No orders rec'd, cont. with current plan of care.
[2019-05-20 12:15] VITALS: BP 107/57
--- NOTE | 2019-05-20 12:15 | NUR ---
Ice pack provided for pt c/o 4/10 pain in perineum.
--- NOTE | 2019-05-20 12:39 | Anesthesia-Regional Post-Op ---
Regional Patient Condition Mental Status: Alert, Oriented x3 Circulation: Same as Pre-Op Headache: Absent Sensation: Full Recovery Motor Block: Absent Post Op Complications Complications None Follow Up Care/Instructions Patient Instructions None needed. Anesthesia/Patient Condition Patient is doing well, no complaints, stable vital signs, no apparent adverse anesthesia problems. No complications reported per nursing. DANIEL ADAMS CRNA May 20, 2019 12:39
[2019-05-20 18:15] VITALS: BP 105/55
[2019-05-21] VITALS: BP 97/58
[2019-05-21 06:14] VITALS: BP 102/66
[2019-05-21] MEDS: IBUPROFEN 600 MG (MOTRIN) TAB PO SCH ×3 (06:14→12:43)
--- NOTE | 2019-05-21 08:30 | NUR ---
Dr. Howard here to see patient. New orders received.
--- NOTE | 2019-05-21 08:36 | Postpartum Progress Note ---
Note Note Day # 1 Subjective: Patient is without complaints. Ambulating, voiding. Tolerating a regular diet without nausea or vomiting. Normal lochia. Pain is well controlled with oral pain medications. Objective: Physical Exam: General - Alert and oriented, no apparent distress Abdomen - Soft, appropriately tender to palpation, non-distended, fundus firm at umbilicus Extremities - no edema, negative Eve's bilaterally Assessment: PPD 2 NVD Acute blood loss anemia Plan: Routine care. Encourage breast feeding. Encourage ambulation. Ferrous sulfate supplementation. Plan for discharge today Vitals - Labs Vital Signs - I&O Vital Signs Date Time Temp Pulse Resp B/P (MAP) Pulse Ox O2 Delivery O2 Flow Rate FiO2 05/21/19 06:14 98.0 63 18 102/66 (78) 98 Room Air 05/21/19 00:00 98.0 57 18 97/58 (71) 98 Room Air 05/20/19 18:15 98.7 86 18 105/55 (72) 98 Room Air 05/20/19 12:15 99.1 75 18 107/57 (74) 98 Room Air RAMON SMART DO May 21, 2019 08:35
[2019-05-21] MEDS ORDERED: FERR325T18 PO (08:38)
[2019-05-21] MEDS ORDERED: TETANUS,DIPTH,PERTUSS P/F (BOOSTRIX) 0.5 ML VIAL IM ONE (09:15)
[2019-05-21 09:23] VITALS: BP 109/72
--- NOTE | 2019-05-21 09:23 | NUR ---
AM shift assessment completed and vital signs obtained, see interventions. Plan of care reviewed with patient. Patient verbalizes understanding and denies any current questions or concerns at this time. Scheduled PNV and Colace PO given. TDAP administered, see EMAR. VIS sheet provided to patient. Addendum: 05/21/19 at 2018 by BHAVANA GARCIA RN Scheduled Iron PO given.
[2019-05-21] MEDS: FERROUS SULF 325 MG (IRON) TAB PO SCH (09:24)
[2019-05-21] MEDS: BENZOCAINE/MENTHOL (DERMOPLAST) 56 ML CAN TP PRN (09:25)
[2019-05-21] MEDS: WITCH HAZEL(TUCKS) 40 EA JAR TOP PRN (09:25)
[2019-05-21] MEDS: PRENATAL VITAMIN 1 EA TAB PO SCH (09:25)
[2019-05-21] MEDS: DOCUSATE SODIUM 100 MG (COLACE) CAP PO SCH (09:25)
--- NOTE | 2019-05-21 12:43 | NUR ---
Scheduled Motrin PO given.
[2019-05-21 12:45] VITALS: BP 116/58
--- NOTE | 2019-05-21 15:03 | NUR ---
Discharge instructions and medications reviewed with patient both written and verbally. Patient verbalizes understanding and questions answered. Prescriptions given to patient with the exception of the Iron which was called into [facility] per patient's request.
--- NOTE | 2019-05-21 15:30 | NUR ---
Patient discharged at this time and accompanied down to awaiting private vehicle by Karuna Shay RN. No signs or symptoms of distress noted.
[2019-05-21 15:44] VITALS: BP 123/74
== END 2019-05-21 15:30 | disposition home or self-care (01) | DRG 806 ==
LOC: LDRP 09:03 → WSo 09:03 → LDRP 09:44
PROVIDERS: ADMIT Obstetrics & Gynecology; ATTEND Obstetrics & Gynecology
PROC: 10E0XZZ Delivery of Products of Conception, External Approach (ICD-10-PCS; principal; 2019-05-19)
PROC: 0W8NXZZ Division of Female Perineum, External Approach (ICD-10-PCS; 2019-05-19)
DX: O99.824 Streptococcus B carrier state complicating childbirth (principal); O90.81 Anemia of the puerperium; D62 Acute posthemorrhagic anemia; Z3A.37 37 weeks gestation of pregnancy; Z37.0 Single live birth; Z23 Encounter for immunization
CPT/HCPCS: 36415; 85025; 86850; 86900; 86901; 90715; 99212

== ENCOUNTER → 2019-06-18 | Outpatient (CLI) | payer BC, MEDICAID ==
[~2019-06-18] MED LIST changes: +ACHD5005 PO; +Benzocaine/Menthol TP; +DOCU100C37 PO; +FERR325T18 PO; +IBUP-844 PO
--- NOTE | 2019-06-18 15:09 | Diagnostic Imaging Report ---
PROCEDURE: US Non-ob pelvis comp/trans. TECHNIQUE: Multiple realtime grayscale images were obtained of the pelvis in various projections endovaginally. Transabdominal imaging was also performed. INDICATION: Pelvic pain. Patient is four weeks . FINDINGS: The uterus measures 8.5 x 6.8 x 4.4 cm. The endometrium is 10 mm in thickness. There is a small amount of fluid within the endometrial canal. No abnormal vascularity to the endometrium is seen. No myometrial mass is identified. The right ovary measures 4.8 x 2.4 x 2.8 cm and the left ovary measures 4.1 x 2.0 x 1.8 cm. Right ovary does contain approximately 18 mm x 15 mm cyst. There is blood flow to the ovaries. No adnexal mass is seen. Small amount of free fluid is noted in the posterior cul-de-sac and adjacent to the left ovary. IMPRESSION: 1. Minimal fluid in endometrial canal. No findings to suggest vascularized retained products of conception. 2. Small right ovarian cyst. The study is otherwise unremarkable. Dictated by: Dictated on workstation # [id number]
== END ==
LOC: RAD 13:59
PROVIDERS: ATTEND Obstetrics & Gynecology
DX: O90.89 Other complications of the puerperium, not elsewhere classified (principal); N83.201 Unspecified ovarian cyst, right side
CPT/HCPCS: 76830; 76856

== ENCOUNTER 2019-08-04 05:55 | Outpatient (CLI) | payer BC, MEDICAID ==
[~2019-08-04] VITALS: Ht 167 cm; Wt 60.4 kg
[2019-08-06] MEDS ORDERED: IBUP-1773 PO (07:12)
[2019-08-06] MEDS ORDERED: ACHD5005 PO (07:12)
== END 2019-08-05 09:04 | disposition home or self-care (01) ==
LOC: PREOP 05:55
PROVIDERS: ATTEND Obstetrics & Gynecology
DX: Z01.818 Encounter for other preprocedural examination (principal)

== ENCOUNTER 2019-08-06 06:03 | Day surgery (SDC) | payer BC, MEDICAID ==
[2019-08-06] VITALS (10 sets, daily range): BP systolic 96–122; BP diastolic 47–76
[~2019-08-06] VITALS: Ht 167.7 cm; Wt 60.4 kg
[2019-08-06] MEDS ORDERED: ONDANSETRON 4 MG/2 ML (SDV) Z0FRAN ONE ×2 (06:24→06:40)
[2019-08-06] MEDS: LACTATED RINGERS 1,000 ML IV PRN ×2 (06:30→07:33)
[2019-08-06] MEDS ORDERED: DEXAMETHASONE 10 MG/ML (DECADRON) 1 ML VIAL ONE (06:40)
[2019-08-06] MEDS ORDERED: fentaNYL INJECTION 100 MCG/2 ML AMP ONE (06:40)
[2019-08-06] MEDS ORDERED: proPOfol 200 MG/20 ML (DIPRIVAN) VIAL IV ONE (06:40)
[2019-08-06] MEDS ORDERED: LIDOCAINE PF 2% 5 ML (XYLOCAINE) VIAL ONE (06:40)
[2019-08-06] MEDS ORDERED: SEVOFLURANE (ULTANE) 15 ML INHAL SOLN ONE (06:40)
[2019-08-06] MEDS ORDERED: MIDAZOLAM 2 MG/2 ML (VERSED) VIAL ONE (06:41)
[2019-08-06 06:54] LABS: BASOPHILS % (AUTO) 1 % (0-10); EOSINOPHILS # (AUTO) 0.4 10^3/uL (0.0-0.3); EOSINOPHILS % (AUTO) 6 % (0-10); HEMATOCRIT 36 % (35-52); HEMOGLOBIN 11.5 G/DL (11.5-16.0); LYMPHOCYTES # (AUTO) 2.2 X 10^3 (1.0-4.0); LYMPHOCYTES % (AUTO) 34 % (12-44); MEAN CORPUSCULAR HEMOGLOBIN 27 PG (25-34); MEAN CORPUSCULAR HGB CONC 32 G/DL (32-36); MEAN CORPUSCULAR VOLUME 87 FL (80-99); MEAN PLATELET VOLUME 9.3 FL (7.4-10.4); MONOCYTES # (AUTO) 0.5 X 10^3 (0.0-1.0); MONOCYTES % (AUTO) 7 % (0-12); NEUTROPHILS # (AUTO) 3.4 X 10^3 (1.8-7.8); NEUTROPHILS % (AUTO) 52 % (42-75); PLATELET COUNT 334 10^3/uL (130-400); RED CELL DISTRIBUTION WIDTH 15.6 % (10.0-14.5); WHITE BLOOD COUNT 6.4 10^3/uL (4.3-11.0)
[2019-08-06] MEDS ORDERED: D5 LR IV SOLUTION 1,000 ML IV SCH (07:06)
--- NOTE | 2019-08-06 07:11 | Progress Note-Pre Operative ---
Pre-Operative Progress Note H&P Reviewed The H&P was reviewed, patient examined and no changes noted. Date Seen by Provider: Aug 06, 2019 Time Seen by Provider: 07:10 Date H&P Reviewed: Aug 06, 2019 Time H&P Reviewed: 07:10 Pre-Operative Diagnosis: RAMON TORREZ DO Aug 06, 2019 07:10
[2019-08-06] MEDS ORDERED: ACHD5005 PO (07:12)
[2019-08-06] MEDS ORDERED: IBUP-1773 PO (07:12)
--- NOTE | 2019-08-06 07:13 | Discharge Inst-Women's Service ---
Discharge Inst-Women's Serv Depart Medication/Instructions New, Converted or Re-Newed RX: RX on Chart Problems Reviewed?: Yes Consults/Follow Up Additional Follow Up: Yes Orders/Referrals Dr. Smart in 2 months Activity Activity: Activity as Tolerated Driving Instructions: No Driving for 1 Week NO SMOKING: NO SMOKING Nothing Inside Vagina: No Douching, No [place], No Tampons Diet Discharge Diet: No Restrictions Symptoms to Report to : Bleeding Excessive, Pain Increased, Fever Over 101 Degrees F, Vaginal Bleeding Increase, Questions/Concerns RAMON SMART DO Aug 06, 2019 07:13
[2019-08-06] MEDS ORDERED: HYDROcodone/APAP 5 MG/325 MG (LORTAB) TAB PO PRN (07:15)
[2019-08-06] MEDS ORDERED: KETOROLAC 30 MG/ML VIAL IVP ONE (07:15)
[2019-08-06] MEDS ORDERED: ONDANSETRON 4 MG/2 ML (SDV) Z0FRAN IVP PRN (07:15)
[2019-08-06] MEDS ORDERED: BUPIVACAINE 0.25% 30 ML (SENSORCAINE) VIAL ONE (07:23)
[2019-08-06] MEDS ORDERED: PROMETHAZINE INJ 25 MG/ML (PHENERGAN) AMP ONE (08:07)
[2019-08-06] MEDS ORDERED: PROMETHAZINE INJ 25 MG/ML (PHENERGAN) AMP IVP ONE (10:00)
--- NOTE | 2019-08-06 14:03 | OPERATIVE REPORT ---
DATE OF SERVICE: 08/06/2019 PREOPERATIVE DIAGNOSIS: A 24-year-old female with abnormal uterine bleeding. POSTOPERATIVE DIAGNOSIS: A 24-year-old female with abnormal uterine bleeding. PROCEDURE: D and C with placement of Liletta IUD. SURGEON: Ramon Smart DO ANESTHESIA: General endotracheal. ESTIMATED BLOOD LOSS: Minimal. URINE OUTPUT: 30 mL. FLUIDS: 1000 mL lactated Ringer's solution. FINDINGS: A moderate amount of endometrial tissue on curettings with grossly normal external female genitalia, cervix and uterine cavity depth. INDICATION FOR PROCEDURE: This 24-year-old female is a patient that has had bleeding issues since being , approximately three to four months. She was started on control pills to help regulate her cycle. These were estrogen and progestin containing pills. Her bleeding continued despite treatment with these. She was also encouraged to take two of these a day until the bleeding stopped and it did nothing to help with the bleeding. We discussed in the office proceeding with some estrogen, followed by progestin therapy; however, the patient does not think this was a good idea. Consideration for retained products was also made; however, quantitative beta hCG was negative as well. I discussed with the patient proceeding with D and C and placement of a Liletta IUD as she did desire some form of contraception and also wanted treatment for her bleeding. Risk of this procedure was discussed with the patient in detail. All of her questions were answered in my office and again reviewed and answered in the preoperative area. The patient was then taken to the operating room. OPERATIVE REPORT IN DETAIL: Once in the operating room, anesthesia was found to be adequate. She was placed in dorsal lithotomy position, prepped and draped in normal sterile fashion. A timeout was performed. The bladder was first emptied using straight catheterization. A weighted speculum was inserted in the patient's vagina. A right angle retractor was used to visualize the cervix, which was grasped at 12 o'clock position using a long Allis clamp. I then performed paracervical block at 3 and 9 o'clock positions using 0.25% Marcaine. Care was taken to aspirate before injecting. 5 mL are injected to each site after which I then gently sounded the uterine cavity, depth is found to be 8 cm. I gently dilated the cervix using Hegar dilators to approximately 8 mm dilatation at which point, I performed an endometrial curettage using a medium size endometrial curette. A moderate amount of endometrial tissue is retrieved in doing so. I then placed a Liletta IUD at a depth of 8 cm without difficulty and the strings were trimmed 2 to 3 cm outside the cervical os, after which there was no active bleeding noted from any of my dissection planes. The patient tolerated the procedure well and sent to recovery area in stable condition. Lap and sponge counts were correct at the end of the procedure. Instrument counts were correct as well. PATHOLOGY SPECIMEN SENT: Endometrial curettings. Job ID: [id number] DocumentID: [id number] Dictated Date: 08/06/2019 07:55:40 Play Back Operator Date: 08/06/2019 14:02:17 Dictated By: RAMON SMART DO
--- NOTE | 2019-08-06 14:49 | Anesthesia-General Post-Op ---
General Patient Condition Mental Status/LOC: Same as Preop Cardiovascular: Satisfactory Nausea/Vomiting: Absent Respiratory: Satisfactory Pain: Controlled Complications: Absent Post Op Complications Complications None Follow Up Care/Instructions Patient Instructions None needed. Anesthesia/Patient Condition Patient Condition Patient is doing well, no complaints, stable vital signs, no apparent adverse anesthesia problems. No complications reported per nursing. D/C home per [facility] [place] Criteria: Yes AURELIA CASTILLO CRNA Aug 06, 2019 14:49
== END 2019-08-06 09:45 | disposition home or self-care (01) ==
LOC: SDC 06:03
PROVIDERS: ATTEND Obstetrics & Gynecology
DX: N85.8 Other specified noninflammatory disorders of uterus (principal); N93.9 Abnormal uterine and vaginal bleeding, unspecified; N94.4 Primary dysmenorrhea; Z30.430 Encounter for insertion of intrauterine contraceptive device; R00.2 Palpitations; D64.9 Anemia, unspecified; Z90.49 Acquired absence of other specified parts of digestive tract; Z90.89 Acquired absence of other organs; Z88.8 Allergy status to other drugs, medicaments and biological substances; Z79.891 Long term (current) use of opiate analgesic; Z79.899 Other long term (current) drug therapy; Z83.3 Family history of diabetes mellitus
CPT/HCPCS: 36415; 84703; 85025; 86850; 86900; 86901; 87081; 88305

== ENCOUNTER → 2020-11-20 | Outpatient (CLI) | payer BC, MEDICAID ==
--- NOTE | 2020-11-20 16:16 | Diagnostic Imaging Report ---
INDICATION: Headache. COMPARISON: 05/23/2017. TECHNIQUE: Routine noncontrast multiplanar, multisequence MRI of the head was obtained. FINDINGS: The ventricles and the cortical sulci age-appropriate. There is no midline shift or mass effect identified. There is no acute infarction. No intraparenchymal or extraaxial hemorrhage or fluid collection is identified. There is no focal parenchymal abnormality seen. There is no focal mass seen. The midline craniocervical anatomy is unremarkable. The major expected intracranial flow voids are seen. There are no focal calvarial lesions. The visualized paranasal sinuses are unremarkable. The mastoid air cells are clear. IMPRESSION: 1. No acute intracranial abnormalities. No acute infarction, acute intra-axial hemorrhage or focal intra-axial mass. Dictated by: Dictated on workstation # [id number]
== END ==
LOC: RAD 14:45
PROVIDERS: ATTEND Internal Medicine
DX: O92.70 Unspecified disorders of lactation (principal); G44.229 Chronic tension-type headache, not intractable
CPT/HCPCS: 70551

== ENCOUNTER 2020-12-04 12:58 | Day surgery (SDC) | payer BC ==
[~2020-12-04] VITALS: Ht 165.1 cm; Wt 60.4 kg
[2020-12-04 13:05] VITALS: BP 135/91
--- NOTE | 2020-12-04 13:40 | NUR ---
LUMBAR PUNCTURE DONE WITH KRIS Morales ANESTHESIA 1316 - CLEAN & DRAPE 1318 - LIDOCAINE 1331 - NEEDLE INSERTION OPENING PRESSURE IS 19 1334 - TUBE #1 1335 - TUBE #2 1336 - TUBE #3 1337 - TUBE #4 1338 - PROCEDURE DONE AT THIS TIME.
--- NOTE | 2020-12-04 13:55 | Anesthesia-Procedure Note ---
Procedures/Interventions Procedure Start/Stop/Diagnosis Date of Procedure: Dec 04, 2020 Start Time: 13:15 Referring Physician: Dr Franco Preprocedural Diagnosis: Headaches, Blurry Vision Brief History Pt sent for Lumbar Puncture. She states she has been having headaches and blurry vision for several months. Most recently she has been started on Diamox with some improvement of her headache. Today she has both a headache and blurry vision. Stop Time: 13:40 Lumbar Puncture Discussed Risk,Benefits: Yes Patient Consents: Yes Position: L3-4, Left Sterile Technique: Yes (ChloraPrep with sterile drape) Opening Pressure: 19 cm CSF Fluid Color: clear Spinal Needle Used: 22g Fraser 3 1/2 inch Procedure Notes + CSF after several redirects but patient tolerated the procedure well. Neg heme and paresthesias. CSF sent to the lab per Dr Franco's orders. Sterile bandage applied. D/W patient the signs and symptoms of a PDPH, including increased fluids and caffeine as conservative treatment, up to an epidural blood patch if necessary. She understood and will contact us if she has any questions or concerns and will follow up at Dr Franco's office. KRIS PONCE DO Dec 04, 2020 13:55
[2020-12-04 14:00] VITALS: BP 119/91
[2020-12-04 14:25] LABS: CSF GLUCOSE 61 MG/DL (50-80); CSF TOTAL PROTEIN 22 MG/DL (15-40)
[2020-12-04 14:32] LABS: APPEARANCE,CSF CLEAR; COLOR,CSF COLORLESS; CSF TUBE NUMBER 4; RED BLOOD CELL,CSF 3 CELLS (0-0); WHITE BLOOD CELL,CSF 0 CELLS (0-5)
== END 2020-12-04 14:08 | disposition home or self-care (01) ==
LOC: SDC 12:58
PROVIDERS: ATTEND Internal Medicine
DX: R51.9 Headache, unspecified (principal); Z91.041 Radiographic dye allergy status
CPT/HCPCS: 36415; 82945; 84157; 86618; 87070; 87205; 89051

== ENCOUNTER 2021-08-06 10:41 | Emergency (ER) | payer BC ==
[~2021-08-06] VITALS: Ht 165 cm; Wt 77.0 kg
[2021-08-06 11:05] VITALS: BP_SYST 120; BP_SYST 133; BP_DIAS 81; BP_DIAS 83; BP_DIAS 87
[2021-08-06 11:12] LABS: BASOPHILS # (AUTO) 0.1 10^3/uL (0.0-0.1); BASOPHILS % (AUTO) 1 % (0-10); EOSINOPHILS # (AUTO) 0.3 10^3/uL (0.0-0.3); EOSINOPHILS % (AUTO) 3 % (0-10); HEMATOCRIT 39 % (35-52); HEMOGLOBIN 12.6 g/dL (11.5-16.0); LYMPHOCYTES # (AUTO) 2.2 10^3/uL (1.0-4.0); LYMPHOCYTES % (AUTO) 26 % (12-44); MEAN CORPUSCULAR HEMOGLOBIN 29 pg (25-34); MEAN CORPUSCULAR HGB CONC 33 g/dL (32-36); MEAN CORPUSCULAR VOLUME 89 fL (80-99); MEAN PLATELET VOLUME 9.5 fL (9.0-12.2); MONOCYTES # (AUTO) 0.5 10^3/uL (0.0-1.0); MONOCYTES % (AUTO) 6 % (0-12); NEUTROPHILS # (AUTO) 5.4 10^3/uL (1.8-7.8); NEUTROPHILS % (AUTO) 65 % (42-75); PLATELET COUNT 352 10^3/uL (130-400); WHITE BLOOD COUNT 8.4 10^3/uL (4.3-11.0)
[2021-08-06 11:23] LABS: ALBUMIN 4.2 GM/DL (3.2-4.5); POTASSIUM 4.8 MMOL/L (3.6-5.0)
[2021-08-06 11:24] LABS: CALCIUM 8.9 MG/DL (8.5-10.1)
[2021-08-06 11:27] LABS: BILIRUBIN,TOTAL 0.2 MG/DL (0.1-1.0)
[2021-08-06 11:29] LABS: CREATININE SERUM 0.88 MG/DL (0.60-1.30)
[2021-08-06 11:29] LABS: BILIRUBIN,URINE NEGATIVE (NEGATIVE); CLARITY,URINE CLEAR; COLOR,URINE YELLOW; GLUCOSE, URINE (UA) NEGATIVE (NEGATIVE); KETONES,URINE NEGATIVE (NEGATIVE); LEUKOCYTE ESTERASE ,URINE NEGATIVE (NEGATIVE); NITRITE,URINE NEGATIVE (NEGATIVE); PROTEIN,URINE NEGATIVE (NEGATIVE)
[2021-08-06 11:45] LABS: BACTERIA,URINE NEGATIVE /HPF; SQUAMOUS EPITHELIAL CELL,UR 0-2 /HPF; WBC,URINE RARE /HPF
--- NOTE | 2021-08-06 12:26 | ED GU-Female ---
General Chief Complaint: OB < 20 WEEKS Stated Complaint: VAGINAL BLEEDING,N/V,POSSIBLE MISCARRIAGE Nursing Triage Note: Pt came to ED for vaginal bleeding. Pt is currently misscarrying at five weeks . Pt was instructed to come by Dr. Smart for assessment. Pt reports some dizziness that began today. Pt does report HX of anemia. Pt amb. to room 04 without difficulty. Source: patient Exam Limitations: no limitations History of Present Illness Date Seen by Provider: Aug 06, 2021 Allergies and Home Medications Allergies Coded Allergies: iodine (Verified Allergy, Severe, ANAPHYLAXIS, 08/04/19) Patient Home Medication List Ferrous Sulfate (Ferrous Sulfate) 325 Mg Tablet, 325 MG PO BID WITH MEALS Prescribed by: RAMON SMART on 05/21/19 0838 Hydrocodone Bit/Acetaminophen (Lortab 5 Mg Tablet) 1 Tab Tab, 1 TAB PO Q4H PRN for PAIN-MODERATE Prescribed by: RAMON SMART on 08/06/19 0712 Ibuprofen (Ibuprofen) 600 Mg Tablet, 600 MG PO Q6H Prescribed by: RAMON SMART on 08/06/19 0712 Past Oqcwoev-Gpzfqt-Pyhtlb Hx Patient Social History Tobacco Use?: No Substance use?: No Pt feels they are or have been: No Immunizations Up To Date Tetanus Booster (TDap): Unknown PED Vaccines UTD: No Seasonal Allergies Seasonal Allergies: No Past Medical History Surgery/Hospitalization HX: Natural childbirth 2018. Surgeries: Yes (RIGHT KNEE, WISDOM TEETH, ORAL X2, DXLS) Cystectomy, Gallbladder, Orthopedic, Tonsillectomy Respiratory: No Cardiac: Yes Palpitations Neurological: No Reproductive Disorders: Yes (PELVIC PAIN, PCOS) Female Reproductive Disorders: Ovarian Cyst, Polycystic Ovarian Dis Sexually Transmitted Disease: No HIV/AIDS: No Genitourinary: No Kidney Stones Gastrointestinal: No Gastroesophageal Reflux Musculoskeletal: No Endocrine: No HEENT: No Loss of Vision: Denies Hearing Impairment: Denies Cancer: No Psychosocial: No Integumentary: No Blood Disorders: No (ANEMIA) Adverse Reaction/Blood Tranf: No (N/A) Family Medical History Asthma 19 FATHER G8 SISTER Diabetes mellitus 19 FATHER G8 SISTER No Pertinent Family Hx Physical Exam Vital Signs Vital Signs - First Documented Capillary Refill : Less Than 3 Seconds Height, Weight, BMI Height: 5'6.00" Weight: 138lbs. 0.0oz. [id number]; 28.00 BMI Method:Stated Progress/Results/Core Measures Suspected Sepsis SIRS Temperature: Pulse: 86 Respiratory Rate: 18 Laboratory Tests 08/06/21 10:54: White Blood Count 8.4 Blood Pressure 133 /81 Mean: 98 Laboratory Tests 08/06/21 10:54: Creatinine 0.88, Platelet Count 352, Total Bilirubin 0.2 Results/Orders Lab Results Laboratory Tests Test 08/06/21 10:54 08/06/21 11:35 Range/Units White Blood Count 8.4 4.3-11.0 10^3/uL Red Blood Count 4.35 3.80-5.11 10^6/uL Hemoglobin 12.6 11.5-16.0 g/dL Hematocrit 39 35-52 % Mean Corpuscular Volume 89 80-99 fL Mean Corpuscular Hemoglobin 29 25-34 pg Mean Corpuscular Hemoglobin Concent 33 32-36 g/dL Red Cell Distribution Width 14.0 10.0-14.5 % Platelet Count 352 130-400 10^3/uL Mean Platelet Volume 9.5 9.0-12.2 fL Immature Granulocyte % (Auto) 0 % Neutrophils (%) (Auto) 65 42-75 % Lymphocytes (%) (Auto) 26 12-44 % Monocytes (%) (Auto) 6 0-12 % Eosinophils (%) (Auto) 3 0-10 % Basophils (%) (Auto) 1 0-10 % Neutrophils # (Auto) 5.4 1.8-7.8 10^3/uL Lymphocytes # (Auto) 2.2 1.0-4.0 10^3/uL Monocytes # (Auto) 0.5 0.0-1.0 10^3/uL Eosinophils # (Auto) 0.3 0.0-0.3 10^3/uL Basophils # (Auto) 0.1 0.0-0.1 10^3/uL Immature Granulocyte # (Auto) 0.0 0.0-0.1 10^3/uL Sodium Level 138 135-145 MMOL/L Potassium Level 4.8 3.6-5.0 MMOL/L Chloride Level 107 98-107 MMOL/L Carbon Dioxide Level 21 21-32 MMOL/L Anion Gap 10 5-14 MMOL/L Blood Urea Nitrogen 10 7-18 MG/DL Creatinine 0.88 0.60-1.30 MG/DL Estimat Glomerular Filtration Rate 78 BUN/Creatinine Ratio 11 Glucose Level 96 70-105 MG/DL Calcium Level 8.9 8.5-10.1 MG/DL Corrected Calcium 8.7 8.5-10.1 MG/DL Total Bilirubin 0.2 0.1-1.0 MG/DL Aspartate Amino Transf (AST/SGOT) 32 5-34 U/L Alanine Aminotransferase (ALT/SGPT) 18 0-55 U/L Alkaline Phosphatase 88 40-136 U/L Total Protein 8.0 6.4-8.2 GM/DL Albumin 4.2 3.2-4.5 GM/DL Human Chorionic Gonadotropin, Quant 46 H <5 MIU/ML Urine Color YELLOW Urine Clarity CLEAR Urine pH 6.0 5-9 Urine Specific [place] 1.015 L 1.016-1.022 Urine Protein NEGATIVE NEGATIVE Urine Glucose (UA) NEGATIVE NEGATIVE Urine Ketones NEGATIVE NEGATIVE Urine Nitrite NEGATIVE NEGATIVE Urine Bilirubin NEGATIVE NEGATIVE Urine Urobilinogen 0.2 < = 1.0 MG/DL Urine Leukocyte Esterase NEGATIVE NEGATIVE Urine RBC (Auto) NEGATIVE NEGATIVE Urine RBC NONE /HPF Urine WBC RARE /HPF Urine Squamous Epithelial Cells 0-2 /HPF Urine Crystals NONE /LPF Urine Bacteria NEGATIVE /HPF Urine Casts NONE /LPF Urine Mucus NEGATIVE /LPF Urine Culture Indicated NO My Orders Orders - JUAN MARTIN APRN Ketorolac Injection (Toradol Injection) (08/06/21 12:30) Medications Given in ED Current Medications Medications Dose Ordered Sig/Nieves Route Start Time Stop Time Status Last Admin Dose Admin Ketorolac Tromethamine 30 mg ONCE ONCE IVP 08/06/21 12:30 08/06/21 12:31 DC 08/06/21 12:45 30 MG Vital Signs/I&O 08/06/21 08/06/21 08/06/21 10:50 10:50 11:05 Temp 35.9 35.9 Pulse 90 90 86 98 86 Resp 18 18 B/P (MAP) 133/94 (107) 133/94 120/83 (95) 120/87 (98) 133/81 (98) Pulse Ox 99 99 O2 Delivery Room Air Room Air Capillary Refill : Less Than 3 Seconds Blood Pressure Mean: 98 Departure Impression Primary Impression: Miscarriage Disposition: 01 HOME, SELF-CARE Condition: Stable Departure-Patient Inst. Decision time for Depature: 12:25 Referrals: KENNY DUKE DO (PCP/Family) Primary Care Physician Patient Instructions: Dealing With Miscarriage, Miscarriage (DC) Add. Discharge Instructions: Follow up with Dr. Smart. Keep appointment scheduled or call to reschedule. May take Ibuprofen 600mg every 6 hours for pain or 800mg every 8 hours as needed for pain. Do not take at this strength for more than a couple days. Take with food. Continue to monitor number of pads you are going through. Do not use tampons. RETURN for increased dizziness, fatigue, or vaginal bleeding. Return for any new, concerning, or worsening symptoms. Self-care: Do not put anything in your vagina for 2 weeks or as directed. Do not use tampons, douche, or have sex. These actions can cause infection and pain. Use sanitary pads as needed. You may have light bleeding or spotting for 2 weeks. Do not take a bath or go swimming for 2 weeks or as directed. These actions may increase your risk for an infection. Take showers only. Rest as needed. Slowly start to do more each day. Return to your daily activiti es as directed. All discharge instructions reviewed with patient and/or family. Voiced understanding. JUAN MARTIN CLEAN ROOM TECHNICIAN Aug 06, 2021 12:26
[2021-08-06] MEDS ORDERED: KETOROLAC 30 MG/ML VIAL IVP ONE (12:30)
[2021-08-06 13:22] VITALS: BP 122/82
== END 2021-08-06 13:22 | disposition home or self-care (01) ==
LOC: EDUNIT# 10:41 → ER 10:44
DX: O03.9 Complete or unspecified spontaneous abortion without complication (principal)
CPT/HCPCS: 36415; 80053; 81000; 84702; 84703; 85025; 86850; 86900; 86901; 96374

== ENCOUNTER → 2022-01-01 | Outpatient (CLI) | payer BC ==
--- NOTE | 2022-01-01 17:39 | Diagnostic Imaging Report ---
PROCEDURE: US Non-ob pelvis comp/trans. TECHNIQUE: Multiple realtime grayscale images were obtained of the pelvis in various projections endovaginally. Transabdominal imaging was also performed. INDICATION: Left lower quadrant pain The previous pelvic ultrasound exam of 06/18/19 noted minimal fluid in endometrial canal but failed to show any sign of retained products of conception. There was also a small right ovarian cyst. On this study, the uterus is nongravid, retroverted and not enlarged measuring 7.5 x 5.9 x 5.9 cm. The endometrial lining is thickened measuring 18 mm (normal 5 mm or less). This finding is nonspecific, however. Correlation with the patient's menstrual cycle would be recommended. There is no focal mass involving the uterus to suggest a fibroid. Both ovaries were identified. There is good blood flow to each ovary. There is no solid pelvic mass noted but there was a small to moderate amount of free fluid in the cul-de-sac. This finding may be secondary to the recent rupture of an ovarian cyst or perhaps to a mild inflammatory/infectious process. IMPRESSION: 1. There is a uucoj-lb-gzvwlner amount of free fluid in the cul-de-sac. This is of uncertain etiology. Considerations as above. 2. There is no acute pelvic abnormality noted otherwise. 3. The endometrial lining is thickened but nonspecific. Correlation with the patient's menstrual cycle would be recommended. Dictated by: Dictated on workstation # [id number]
== END ==
LOC: RAD 13:30
PROVIDERS: ATTEND Obstetrics & Gynecology
DX: R10.32 Left lower quadrant pain (principal)
CPT/HCPCS: 76830; 76856

== ENCOUNTER 2022-06-18 18:57 | Emergency (ER) | payer BC ==
[~2022-06-18 18:57] MED LIST changes: -PROG200C14 PO; +[UNRECOGNIZED DRUG - CODE] PO
[2022-06-18 19:07] VITALS: BP 144/83
--- NOTE | 2022-06-18 19:19 | ED Cardiac General ---
History of Present Illness General Chief Complaint: Cardiac/General Problems Stated Complaint: IRR HEART RATE Nursing Triage Note: PT PRESENTS WITH EKG FROM [facility]. REPORTS SHE WAS SENT HERE FROM [facility] D/T AN IRREGULAR HEART RATE. REPORTS SHE HAS POTS AND WAS TOLD TO MONITOR HER HEART RATE ON HER APPLE WATCH. REPORTS TODAY HER RATE WAS BETWEEN 39-190. DENIES CHEST PAIN. Source: patient Exam Limitations: no limitations ([facility]) History of Present Illness Date Seen by Provider: Jun 18, 2022 Time Seen by Provider: 19:16 Initial Comments Patient is a 27-year-old female who has a history of POTS who presents the ED for chest pain. Chest pain started yesterday located substernal described as sharp with radiating burning pain to the right arm. This may last for a few seconds. She has had 3 episodes since yesterday. Episode today around 1 while [address] she checked her heart rate which read 39. Her typical heart rate is around 80 bpm. Patient Was placed on metoprolol by her PCP 2 months ago 25 mg daily. She has no associated shortness of breath, cough, nausea, vomiting, diarrhea, dizziness or visual changes. She reports chronic headache. Was sent to the ED for further evaluation from [facility] secondary to this chest pain. She does have IUD. No recent travels or surgeries. No known blood disorders. No known family history of sudden cardiac . Denies hypertension, diabetes, high cholesterol, smoking ASA po IT TELECOM TECHNICIAN: No ([facility]) Allergies and Home Medications Allergies Coded Allergies: iodine (Verified Allergy, Severe, ANAPHYLAXIS, 08/04/19) Patient Home Medication List Home Medication List Reviewed: Yes ([place]) Ferrous Sulfate (Ferrous Sulfate) 325 Mg Tablet, 325 MG PO BID WITH MEALS Prescribed by: RAMON SMART on 05/21/19 0829 Hydrocodone Bit/Acetaminophen (Lortab 5 Mg Tablet) 1 Tab Tab, 1 TAB PO Q4H PRN for PAIN-MODERATE Prescribed by: RAMON SMART on 08/06/19 0712 Ibuprofen (Ibuprofen) 600 Mg Tablet, 600 MG PO Q6H Prescribed by: RAMON SMART on 08/06/19 0712 Review of Systems Review of Systems Constitutional: No chills, No diaphoresis, No malaise, No weakness EENTM: No Double Vision, No Eye Pain Cardiovascular: Chest Pain, Irregular Heart Rate Gastrointestinal: Denies Abdominal Pain, Denies Diarrhea, Denies Nausea, Denies Vomiting Genitourinary: Denies Burning, Denies Discharge Musculoskeletal: No back pain, No joint pain Skin: No change in color, No change in hair/nails ([facility] [facility]) All Other Systems Reviewed Negative Unless Noted: Yes ([facility]) Past Txvadux-Twammd-Ygxvny Hx Patient Social History Tobacco Use?: No Substance use?: No Alcohol Use?: Yes Alcohol Frequency: Once in a while Pt feels they are or have been: No ([facility]) Immunizations Up To Date Tetanus Booster (TDap): Unknown PED Vaccines UTD: No Influenza Vaccine Up-to-Date: Yes; Up-to-Date First/Initial COVID19 Vaccinat: UNKNOWN DATE Second COVID19 Vaccination Krystian: UNKNOWN DATE COVID19 Vaccine Peer Tutor: ASHLEY ([facility]) Seasonal Allergies Seasonal Allergies: No ([place]) Past Medical History Surgery/Hospitalization HX: GALLBLADDER, TONSILLS, MCL/ACL Surgeries: Yes (RIGHT KNEE, WISDOM TEETH, ORAL X2, DXLS) Cystectomy, Gallbladder, Orthopedic, Tonsillectomy Respiratory: No Cardiac: Yes Palpitations Neurological: No Reproductive Disorders: Yes (PELVIC PAIN, PCOS) Female Reproductive Disorders: Ovarian Cyst, Polycystic Ovarian Dis Sexually Transmitted Disease: No HIV/AIDS: No Genitourinary: No Kidney Stones Gastrointestinal: No Gastroesophageal Reflux Musculoskeletal: No Endocrine: No HEENT: No Loss of Vision: Denies Hearing Impairment: Denies Cancer: No Psychosocial: No Integumentary: No Blood Disorders: No (ANEMIA) Adverse Reaction/Blood Tranf: No (N/A) ([facility]) Family Medical History Asthma 19 FATHER G8 SISTER Diabetes mellitus 19 FATHER G8 SISTER No Pertinent Family Hx ([facility]) Physical Exam Vital Signs Vital Signs - First Documented 06/18/22 19:07 Pulse 95 Resp 18 B/P (MAP) 144/83 (103) Pulse Ox 98 O2 Delivery Room Air (EDWINA TITUS MD) Vital Signs Capillary Refill : ([place]) Height, Weight, BMI Height: 5'6.00" Weight: 138lbs. 0.0oz. [id number]; 28.00 BMI Method:Stated General Appearance: No Apparent Distress, WD/WN HEENT: PERRL/EOMI, TMs Normal, Normal ENT Inspection, Pharynx Normal Neck: Full Range of Motion, Normal Inspection, Non Tender, Supple Respiratory: Chest Non Tender, Lungs Clear, Normal Breath Sounds, No Accessory Muscle Use, No Respiratory Distress Cardiovascular: Regular Rate, Rhythm, No Edema, No Gallop, No JVD Gastrointestinal: Normal Bowel Sounds, No Organomegaly, No Pulsatile Mass, Non Tender Extremity: Normal Capillary Refill, Normal Inspection, Normal Range of Motion Skin: Normal Color, Warm/Dry ([facility]) Progress/Results/Core Measures Results/Orders Lab Results Laboratory Tests Test 06/18/22 08:19 06/18/22 19:20 Range/Units White Blood Count 8.1 4.3-11.0 10^3/uL Red Blood Count 4.42 3.80-5.11 10^6/uL Hemoglobin 12.7 11.5-16.0 g/dL Hematocrit 39 35-52 % Mean Corpuscular Volume 88 80-99 fL Mean Corpuscular Hemoglobin 29 25-34 pg Mean Corpuscular Hemoglobin Concent 33 32-36 g/dL Red Cell Distribution Width 13.4 10.0-14.5 % Platelet Count 324 130-400 10^3/uL Mean Platelet Volume 9.5 9.0-12.2 fL Immature Granulocyte % (Auto) 0 % Neutrophils (%) (Auto) 62 42-75 % Lymphocytes (%) (Auto) 27 12-44 % Monocytes (%) (Auto) 7 0-12 % Eosinophils (%) (Auto) 3 0-10 % Basophils (%) (Auto) 1 0-10 % Neutrophils # (Auto) 5.0 1.8-7.8 10^3/uL Lymphocytes # (Auto) 2.2 1.0-4.0 10^3/uL Monocytes # (Auto) 0.6 0.0-1.0 10^3/uL Eosinophils # (Auto) 0.3 0.0-0.3 10^3/uL Basophils # (Auto) 0.1 0.0-0.1 10^3/uL Immature Granulocyte # (Auto) 0.0 0.0-0.1 10^3/uL Prothrombin Time 13.4 12.2-14.7 SEC INR Comment 1.0 0.8-1.4 Activated Partial Thromboplast Time 31 24-35 SEC D-Dimer 0.51 H 0.00-0.49 UG/ML Sodium Level 139 135-145 MMOL/L Potassium Level 3.7 3.6-5.0 MMOL/L Chloride Level 107 98-107 MMOL/L Carbon Dioxide Level 24 21-32 MMOL/L Anion Gap 8 5-14 MMOL/L Blood Urea Nitrogen 8 7-18 MG/DL Creatinine 0.91 0.60-1.30 MG/DL Estimat Glomerular Filtration Rate 89 BUN/Creatinine Ratio 9 Glucose Level 91 70-105 MG/DL Calcium Level 9.1 8.5-10.1 MG/DL Corrected Calcium 8.9 8.5-10.1 MG/DL Magnesium Level 2.0 1.6-2.4 MG/DL Total Bilirubin 0.3 0.1-1.0 MG/DL Aspartate Amino Transf (AST/SGOT) 13 5-34 U/L Alanine Aminotransferase (ALT/SGPT) 12 0-55 U/L Alkaline Phosphatase 82 40-136 U/L Myoglobin 17.4 10.0-92.0 NG/ML Troponin I < 0.028 <0.028 NG/ML B-Type Natriuretic Peptide 12.6 <100.0 PG/ML Total Protein 7.4 6.4-8.2 GM/DL Albumin 4.3 3.2-4.5 GM/DL Urine Color YELLOW Urine Clarity CLEAR Urine pH 6.0 5-9 Urine Specific [place] 1.020 1.016-1.022 Urine Protein NEGATIVE NEGATIVE Urine Glucose (UA) NEGATIVE NEGATIVE Urine Ketones NEGATIVE NEGATIVE Urine Nitrite NEGATIVE NEGATIVE Urine Bilirubin NEGATIVE NEGATIVE Urine Urobilinogen 0.2 < = 1.0 MG/DL Urine Leukocyte Esterase NEGATIVE NEGATIVE Urine RBC (Auto) NEGATIVE NEGATIVE Urine RBC NONE /HPF Urine WBC 0-2 /HPF Urine Squamous Epithelial Cells 0-2 /HPF Urine Renal Epithelial Cells NONE /HPF Urine Crystals NONE /LPF Urine Bacteria NEGATIVE /HPF Urine Casts NONE /LPF Urine Mucus NEGATIVE /LPF Urine Culture Indicated NO Urine Test NEGATIVE NEGATIVE (EDWINA TITUS MD) Medications Given in ED Current Medications Medications Dose Ordered Sig/Nieves Route Start Time Stop Time Status Last Admin Dose Admin Enoxaparin Sodium 70 mg ONCE ONCE SC 06/18/22 21:00 06/18/22 21:01 DC 06/18/22 20:58 70 MG (EDWINA TITUS MD) Vital Signs/I&O 06/18/22 06/18/22 19:07 20:19 Pulse 95 92 Resp 18 18 B/P (MAP) 144/83 (103) 131/89 Pulse Ox 98 100 O2 Delivery Room Air Room Air (EDWINA TITUS MD) Blood Pressure Mean: 103 Departure Communication (PCP) Patient presents ED with chest pain with right side arm pain. 3 episodes since yesterday. Last episode around 1:00 today. Went to [facility] had work-up performed without any lab work. She was not found to be orthostatic hypotensive. Currently on metoprolol. She is slightly tachycardic here. EKG without evidence of arrhythmia such as ST elevation depression. Cardiac work-up unremarkable besides her D-dimer at 0.51. Lab work was otherwise unremarkable. Chest x-ray was negative for any acute pulmonary disease. Patient states she has a allergy to iodine which results in shortness of breath and respiratory distress. Patient's D-dimer is not extremely high but is elevated at 0.51. Patient does have a IUD. No recent travels or surgeries. Denies any leg pain, leg swelling. She is not having any current chest pain or shortness of breath but is slightly tachycardic. Due to the slight elevated D-dimer not able to get a CT angio of the chest will order outpatient VQ scan. She was given a dose of Lovenox. Is recommended outpatient stat VQ scan performed tomorrow. Those results will be faxed to her primary care physician Dr. Franco. She is scheduled to discuss a Holter monitor this Friday. Provided outpatient cardiac follow-up. Normal blood pressure. No evidence of low heart rate here. Discussed continue monitoring heart rate at home. Currently asymptomatic. ([facility]) Impression Primary Impression: Chest pain Disposition: HOME, SELF-CARE Condition: Stable Departure-Patient Inst. Decision time for Depature: 20:48 ([facility]) Referrals: KENNY FRANCO DO (PCP/Family) Primary Care Physician Patient Instructions: Chest Pain (DC) Add. Discharge Instructions: Need to follow-up with outpatient tomorrow to schedule appointment for your VQ scan. Results need to be called to Dr. Franco. If any worsening symptoms return back to ED for further evaluation All discharge instructions reviewed with patient and/or family. Voiced understanding. Work/School Note: Work Release Form Date Seen in the Emergency Department: Jun 18, 2022 Return to Work: Jun 20, 2022 ATTENDING PHYSICIAN NOTE: I was physically present as attending physician in the emergency department during the care of this patient, but I was not directly involved in the decision making or delivery of care for this patient. (EDWINA TITUS MD) [facility] Jun 18, 2022 19:19 EDWINA TITUS MD Jun 19, 2022 06:38
[2022-06-18 19:24] LABS: BILIRUBIN,URINE NEGATIVE (NEGATIVE); CLARITY,URINE CLEAR; COLOR,URINE YELLOW; GLUCOSE, URINE (UA) NEGATIVE (NEGATIVE); KETONES,URINE NEGATIVE (NEGATIVE); LEUKOCYTE ESTERASE ,URINE NEGATIVE (NEGATIVE); NITRITE,URINE NEGATIVE (NEGATIVE); PROTEIN,URINE NEGATIVE (NEGATIVE)
[2022-06-18 19:30] LABS: BACTERIA,URINE NEGATIVE /HPF; SQUAMOUS EPITHELIAL CELL,UR 0-2 /HPF; WBC,URINE 0-2 /HPF
[2022-06-18 19:38] LABS: BASOPHILS # (AUTO) 0.1 10^3/uL (0.0-0.1); BASOPHILS % (AUTO) 1 % (0-10); EOSINOPHILS # (AUTO) 0.3 10^3/uL (0.0-0.3); EOSINOPHILS % (AUTO) 3 % (0-10); HEMATOCRIT 39 % (35-52); HEMOGLOBIN 12.7 g/dL (11.5-16.0); LYMPHOCYTES # (AUTO) 2.2 10^3/uL (1.0-4.0); LYMPHOCYTES % (AUTO) 27 % (12-44); MEAN CORPUSCULAR HEMOGLOBIN 29 pg (25-34); MEAN CORPUSCULAR HGB CONC 33 g/dL (32-36); MEAN CORPUSCULAR VOLUME 88 fL (80-99); MEAN PLATELET VOLUME 9.5 fL (9.0-12.2); MONOCYTES # (AUTO) 0.6 10^3/uL (0.0-1.0); MONOCYTES % (AUTO) 7 % (0-12); NEUTROPHILS % (AUTO) 62 % (42-75); PLATELET COUNT 324 10^3/uL (130-400); WHITE BLOOD COUNT 8.1 10^3/uL (4.3-11.0)
[2022-06-18 19:51] LABS: PROTHROMBIN TIME PATIENT 13.4 SEC (12.2-14.7)
[2022-06-18 19:52] LABS: ALBUMIN 4.3 GM/DL (3.2-4.5); POTASSIUM 3.7 MMOL/L (3.6-5.0)
[2022-06-18 19:53] LABS: CALCIUM 9.1 MG/DL (8.5-10.1)
[2022-06-18 19:55] LABS: TOTAL PROTEIN 7.4 GM/DL (6.4-8.2)
[2022-06-18 19:56] LABS: BILIRUBIN,TOTAL 0.3 MG/DL (0.1-1.0)
[2022-06-18 19:58] LABS: CREATININE SERUM 0.91 MG/DL (0.60-1.30)
--- NOTE | 2022-06-18 20:02 | Diagnostic Imaging Report ---
INDICATION: Irregular heart rate. COMPARISON: 02/18/2014. FINDINGS: The lungs appear clear without focal airspace opacities or consolidation. There are no findings of an effusion. There is no evidence of a pneumothorax. Heart size and mediastinal contours appear appropriate. Pulmonary vascularity appears within normal limits. There is no acute or suspicious osseous abnormality demonstrated. IMPRESSION: No radiographic evidence of an acute cardiopulmonary process. Dictated by: Dictated on workstation # [id number]
[2022-06-18] MEDS ORDERED: ENOXAPARIN 80 MG/0.8 ML (LOVENOX) SYR SC ONE (21:00)
== END 2022-06-18 21:05 | disposition home or self-care (01) ==
LOC: EDUNIT# 18:57 → ER 19:00
DX: R07.89 Other chest pain (principal); M79.601 Pain in right arm; R00.0 Tachycardia, unspecified; Z88.8 Allergy status to other drugs, medicaments and biological substances; Z79.899 Other long term (current) drug therapy
CPT/HCPCS: 36415; 71045; 80053; 81000; 83735; 83874; 83880; 84484; 84703; 85025; 85379; 85610; 85730; 93005; 93041

== ENCOUNTER → 2022-06-19 | Outpatient (CLI) | payer BC ==
[~2022-06-19] MED LIST changes: +CATHETER FLUSH 10 ML SYR IVP PRN
--- NOTE | 2022-06-19 15:36 | Diagnostic Imaging Report ---
INDICATION: Elevated D-dimer. TECHNIQUE: The patient was administered 5.1 mCi of technetium 99m MAA intravenously and imaging over the chest was performed in multiple obliquities. FINDINGS: There is homogeneous perfusion to both lungs. No pleural-based perfusion defects are identified. IMPRESSION: Normal perfusion lung scan. Result results were called to Dr. Franco prior to this dictation. Dictated by: Dictated on workstation # [id number]
== END ==
LOC: CARD 14:30
PROVIDERS: ATTEND Emergency Medicine
DX: R79.1 Abnormal coagulation profile (principal)
CPT/HCPCS: 78580; A9540

== ENCOUNTER → 2022-06-25 | Outpatient (CLI) | payer BC ==
[~2022-06-25] MED LIST changes: -CATHETER FLUSH 10 ML SYR IVP PRN
== END ==
LOC: CARD 08:07
PROVIDERS: ATTEND Nurse Practitioner Family
DX: I49.8 Other specified cardiac arrhythmias (principal)

== ENCOUNTER → 2022-12-16 | Outpatient (CLI) | payer BC ==
--- NOTE | 2022-12-16 13:12 | Diagnostic Imaging Report ---
PROCEDURE: US Non-ob pelvis comp/trans. TECHNIQUE: Multiple realtime grayscale images were obtained of the pelvis in various projections endovaginally. Transabdominal imaging was also performed. INDICATION: Pelvic pain Uterus measures 7.5 x 4.3 x 5.2 cm. There is an IUD in the endometrial cavity that appears to be in appropriate position. Endometrial stripe measures 8 mm. There are some follicular cysts on the right ovary. The left ovary was not seen. Could be obscured by bowel gas but clinical correlation recommended. There is a small amount of free fluid in the cul-de-sac. IMPRESSION: IUD appears to be in good position. Left ovary was not seen. There is a small amount of free fluid. Dictated by: Dictated on workstation # [id number]
== END ==
LOC: RAD 12:00
PROVIDERS: ATTEND Obstetrics & Gynecology
DX: R10.30 Lower abdominal pain, unspecified (principal)
CPT/HCPCS: 76830; 76856

== ENCOUNTER 2023-02-10 13:53 | Emergency (ER) | payer BC ==
[~2023-02-10] VITALS: Ht 164 cm; Wt 76.0 kg
[2023-02-10 14:25] LABS: BASOPHILS # (AUTO) 0.1 10^3/uL (0.0-0.1); BASOPHILS % (AUTO) 1 % (0-10); EOSINOPHILS # (AUTO) 0.2 10^3/uL (0.0-0.3); EOSINOPHILS % (AUTO) 3 % (0-10); HEMATOCRIT 42 % (35-52); HEMOGLOBIN 14.3 g/dL (11.5-16.0); LYMPHOCYTES # (AUTO) 2.5 10^3/uL (1.0-4.0); LYMPHOCYTES % (AUTO) 32 % (12-44); MEAN CORPUSCULAR HEMOGLOBIN 29 pg (25-34); MEAN CORPUSCULAR HGB CONC 34 g/dL (32-36); MEAN CORPUSCULAR VOLUME 87 fL (80-99); MEAN PLATELET VOLUME 9.4 fL (9.0-12.2); MONOCYTES # (AUTO) 0.5 10^3/uL (0.0-1.0); MONOCYTES % (AUTO) 6 % (0-12); NEUTROPHILS # (AUTO) 4.5 10^3/uL (1.8-7.8); NEUTROPHILS % (AUTO) 58 % (42-75); PLATELET COUNT 303 10^3/uL (130-400); WHITE BLOOD COUNT 7.7 10^3/uL (4.3-11.0)
--- NOTE | 2023-02-10 14:32 | ED Cardiac General ---
History of Present Illness General Chief Complaint: Cardiac/General Problems Stated Complaint: ELEVATED HEARTRATE Nursing Triage Note: SENT FROM DR DUKE WITH HEART RATE IN THE 170'S OFF AND ON AND WILL DROP TO THE 20'S. 101 AT TRIAGE. IS SCHEDULED TO SEE DEEPIKA IN February. HAPPENING FOR A COUPLE MONTHS Source: patient Exam Limitations: no limitations History of Present Illness Date Seen by Provider: Feb 10, 2023 Time Seen by Provider: 14:09 Initial Comments 28-year-old female presents for elevated heart rate. She states she has been dealing with heart issues for quite time. She is worked with her primary doctor as of yet and had a Holter monitor. This information was sent to [facility] and she was post follow-up with them however she states her appointment has been rescheduled several times and she has not been able to follow-up yet. She now has an upcoming appoint with Dr. Nolasco but has not seen him yet either. Today she states her watch notified her that her heart rate was elevated. She looked at it and it was 173-180. She felt lightheaded during this time and had some pressure in her chest. Her symptoms have abated at present. She does not use any caffeine or workout, herbal supplements. She denies any recent illness. She tells me this is happened on and off for the last year or so. She states her heart rate will be significantly elevated and then drop down into the 20s. She does not know the results of her Holter monitor. I independently reviewed the results of the event monitor completed 07/08. This showed sinus rhythm with a maximal rate 167 bpm. Few PACs and PVCs. No other abnormalities. Lowest rate recorded was 52 bpm. All other systems reviewed and negative except documented per HPI. Voice recognition software was used to help create this chart Allergies and Home Medications Allergies Coded Allergies: iodine (Verified Allergy, Severe, ANAPHYLAXIS, 08/04/19) Patient Home Medication List Home Medication List Reviewed: Yes Ferrous Sulfate (Ferrous Sulfate) 325 Mg Tablet, 325 MG PO BID WITH MEALS Prescribed by: RAMON SMART on 05/21/19 0838 Hydrocodone Bit/Acetaminophen (Lortab 5 Mg Tablet) 1 Tab Tab, 1 TAB PO Q4H PRN for PAIN-MODERATE Prescribed by: RAMON SMART on 08/06/19 0712 Ibuprofen (Ibuprofen) 600 Mg Tablet, 600 MG PO Q6H Prescribed by: RAMON SMART on 08/06/19 0712 Review of Systems Review of Systems Constitutional: see HPI Past Oumnatc-Cmrazg-Lktlrp Hx Patient Social History Tobacco Use?: No Substance use?: No Alcohol Use?: Yes Alcohol Frequency: Once in a while Immunizations Up To Date Tetanus Booster (TDap): Unknown PED Vaccines UTD: No First/Initial COVID19 Vaccinat: UNKNOWN DATE Second COVID19 Vaccination Krystian: YES Seasonal Allergies Seasonal Allergies: No Past Medical History Surgery/Hospitalization HX: GALLBLADDER, TONSILLS, MCL/ACL Surgeries: Yes (RIGHT KNEE, WISDOM TEETH, ORAL X2, DXLS) Cystectomy, Gallbladder, Orthopedic, Tonsillectomy Respiratory: No Cardiac: Yes Palpitations Neurological: No Reproductive Disorders: Yes (PELVIC PAIN, PCOS) Female Reproductive Disorders: Ovarian Cyst, Polycystic Ovarian Dis Sexually Transmitted Disease: No HIV/AIDS: No Genitourinary: No Kidney Stones Gastrointestinal: No Gastroesophageal Reflux Musculoskeletal: No Endocrine: No HEENT: No Loss of Vision: Denies Hearing Impairment: Denies Cancer: No Psychosocial: No Integumentary: No Blood Disorders: No ([facility]) Adverse Reaction/Blood Tranf: No (N/A) Family Medical History Asthma 19 FATHER G8 SISTER Diabetes mellitus 19 FATHER G8 SISTER No Pertinent Family Hx Physical Exam Vital Signs Vital Signs - First Documented 02/10/23 14:02 Temp 37.1 Pulse 101 Resp 20 B/P (MAP) 158/100 (119) Pulse Ox 100 O2 Delivery Room Air Capillary Refill : Less Than 3 Seconds Height, Weight, BMI Height: 5'6.00" Weight: 138lbs. 0.0oz. [id number]; 28.00 BMI Method:Stated General Appearance: No Apparent Distress, WD/WN HEENT: Normal ENT Inspection Neck: Full Range of Motion, Normal Inspection, Non Tender, Supple Respiratory: Chest Non Tender, Lungs Clear, Normal Breath Sounds, No Accessory Muscle Use, No Respiratory Distress Cardiovascular: Regular Rate, Rhythm, No Edema, No Gallop, No JVD, No Murmur, Normal Peripheral Pulses Gastrointestinal: Normal Bowel Sounds, No Organomegaly, Non Tender, Soft Extremity: Normal Capillary Refill, Normal Inspection, Normal Range of Motion, Non Tender, No Calf Tenderness, No Pedal Edema Neurologic/Psychiatric: Alert, Oriented x3 Skin: Normal Color, Warm/Dry Progress/Results/Core Measures Results/Orders Lab Results Laboratory Tests Test 02/10/23 14:18 Range/Units White Blood Count 7.7 4.3-11.0 10^3/uL Red Blood Count 4.87 3.80-5.11 10^6/uL Hemoglobin 14.3 11.5-16.0 g/dL Hematocrit 42 35-52 % Mean Corpuscular Volume 87 80-99 fL Mean Corpuscular Hemoglobin 29 25-34 pg Mean Corpuscular Hemoglobin Concent 34 32-36 g/dL Red Cell Distribution Width 13.4 10.0-14.5 % Platelet Count 303 130-400 10^3/uL Mean Platelet Volume 9.4 9.0-12.2 fL Immature Granulocyte % (Auto) 0 % Neutrophils (%) (Auto) 58 42-75 % Lymphocytes (%) (Auto) 32 12-44 % Monocytes (%) (Auto) 6 0-12 % Eosinophils (%) (Auto) 3 0-10 % Basophils (%) (Auto) 1 0-10 % Neutrophils # (Auto) 4.5 1.8-7.8 10^3/uL Lymphocytes # (Auto) 2.5 1.0-4.0 10^3/uL Monocytes # (Auto) 0.5 0.0-1.0 10^3/uL Eosinophils # (Auto) 0.2 0.0-0.3 10^3/uL Basophils # (Auto) 0.1 0.0-0.1 10^3/uL Immature Granulocyte # (Auto) 0.0 0.0-0.1 10^3/uL Sodium Level 139 135-145 MMOL/L Potassium Level 3.3 L 3.6-5.0 MMOL/L Chloride Level 107 98-107 MMOL/L Carbon Dioxide Level 21 21-32 MMOL/L Anion Gap 11 5-14 MMOL/L Blood Urea Nitrogen 12 7-18 MG/DL Creatinine 0.92 0.60-1.30 MG/DL Estimat Glomerular Filtration Rate 87 BUN/Creatinine Ratio 13 Glucose Level 93 70-105 MG/DL Calcium Level 9.5 8.5-10.1 MG/DL Corrected Calcium 8.5-10.1 MG/DL Magnesium Level 1.9 1.6-2.4 MG/DL Total Bilirubin 0.5 0.1-1.0 MG/DL Aspartate Amino Transf (AST/SGOT) 14 5-34 U/L Alanine Aminotransferase (ALT/SGPT) 13 0-55 U/L Alkaline Phosphatase 94 40-136 U/L Troponin I < 0.028 <0.028 NG/ML Total Protein 8.1 6.4-8.2 GM/DL Albumin 4.7 H 3.2-4.5 GM/DL Thyroid Stimulating Hormone (TSH) 1.54 0.35-4.94 UIU/ML Serum Test, Qualitative NEGATIVE NEGATIVE My Orders Orders - LIUDMILAPRAVEEN Balbuena DO Magnesium (02/10/23 14:19) Thyroid Stimulating Hormone (02/10/23 14:19) Cbc With Automated Diff (02/10/23 14:19) Comprehensive Metabolic Panel (02/10/23 14:19) Ekg Tracing (02/10/23 14:19) Troponin I [place] (02/10/23 14:19) Hcg,Qualitative Serum (02/10/23 14:29) Potassium Chloride (Tablet) (K Dur Table (02/10/23 15:15) Medications Given in ED Vital Signs/I&O 02/10/23 02/10/23 14:02 15:45 Temp 37.1 Pulse 101 94 Resp 20 20 B/P (MAP) 158/100 (119) 130/87 Pulse Ox 100 100 O2 Delivery Room Air Room Air Blood Pressure Mean: 119 Comment Sinus tachycardia with a rate of 100 bpm. Normal intervals. Normal axis. No ST or T wave abnormalities. No ectopy. No STEMI. Departure Communication (Admissions) Patient is hemodynamically stable. She is sinus tachycardia here but is otherwise completely stable. There is mild she reports rates up to be at home as of this year. Reviewed event monitor that she had that showed sinus rhythm with elevated rates in the 160s however she had a few PACs and PVCs but no other acute findings. Rhythm was sinus with whole time indication for emergent medical condition at this time. She is discharged home in stable condition Impression Primary Impression: Sinus tachycardia Disposition: 01 HOME, SELF-CARE Condition: Stable Departure-Patient Inst. Referrals: KENNY DUKE DO (PCP/Family) Primary Care Physician Patient Instructions: Tachycardia (DC) Add. Discharge Instructions: Avoid caffeine, energy drinks and workout supplements. Increase your fluids at home and rest. Your potassium was slightly low here, this is likely an incidental finding but recommend you have this rechecked with your primary doctor in the next month or so. Follow-up with [facility] as soon as possible. All discharge instructions reviewed with patient and/or family. Voiced understanding. PRAVEEN NUR DO Feb 10, 2023 14:32
[2023-02-10 14:39] LABS: ALBUMIN 4.7 GM/DL (3.2-4.5); CHLORIDE 107 MMOL/L (98-107); POTASSIUM 3.3 MMOL/L (3.6-5.0); SODIUM 139 MMOL/L (135-145)
[2023-02-10 14:40] LABS: CALCIUM 9.5 MG/DL (8.5-10.1)
[2023-02-10 14:41] LABS: GLUCOSE 93 MG/DL (70-105); TOTAL PROTEIN 8.1 GM/DL (6.4-8.2)
[2023-02-10 14:42] LABS: CARBON DIOXIDE 21 MMOL/L (21-32)
[2023-02-10 14:43] LABS: BILIRUBIN,TOTAL 0.5 MG/DL (0.1-1.0)
[2023-02-10 14:45] LABS: ALKALINE PHOSPHATASE 94 U/L (40-136); CREATININE SERUM 0.92 MG/DL (0.60-1.30); GFR ESTIMATED 87
[2023-02-10 14:46] LABS: BUN/CREATININE RATIO 13
[2023-02-10 14:47] LABS: MAGNESIUM 1.9 MG/DL (1.6-2.4)
[2023-02-10 14:48] LABS: ALANINE AMINOTRANSFERASE 13 U/L (0-55)
[2023-02-10] MEDS ORDERED: KCL 20 MEQ TAB (K-DUR) PO ONE (15:15)
[2023-02-10 15:45] VITALS: BP 130/87
== END 2023-02-10 15:45 | disposition home or self-care (01) ==
LOC: EDUNIT# 13:53 → ER 13:55
DX: R00.0 Tachycardia, unspecified (principal)
CPT/HCPCS: 36415; 80053; 83735; 84443; 84484; 84703; 85025; 93005

== ENCOUNTER → 2023-03-05 | Outpatient (CLI) | payer BC | LOC: CARD 13:00 | PROVIDERS: ATTEND Internal Medicine Cardiovascular Disease | DX: I10 Essential (primary) hypertension (principal); I25.10 Atherosclerotic heart disease of native coronary artery without angina pectoris; R55 Syncope and collapse | CPT/HCPCS: 93306 ==

== ENCOUNTER 2023-03-12 14:30 | Outpatient (CLI) | payer BC ==
[2023-03-12] VITALS (29 sets, daily range): BP systolic 95–136; BP diastolic 54–112
[~2023-03-12] VITALS: Ht 167 cm; Wt 77.1 kg
[~2023-03-12 14:30] MED LIST changes: +ATROPINE INJECTION 1 MG/10 ML SYR (ABBOTT) ONE; +NS IV 1000 ML 1,000 ML IV ONE; +NS IV 1000 ML 1,000 ML ONE
--- NOTE | 2023-03-12 14:33 | Cardiology Tilt Table Test ---
Cardiology-Tilt Table Test Tilt Table Test Date 03/12/23 Baseline Vitals Vital Signs Date Time Temp Pulse Resp B/P (MAP) Pulse Ox O2 Delivery O2 Flow Rate FiO2 03/12/23 13:54 36.7 79 20 129/83 (98) 100 Room Air Vital Signs VS - Last 72 Hours, by Label 03/12/23 03/12/23 03/12/23 03/12/23 13:54 14:05 14:06 14:07 Temp 36.7 Pulse 79 83 101 92 Resp 20 17 19 20 B/P (MAP) 129/83 (98) 126/95 (105) 133/93 (106) 125/91 (102) Pulse Ox 100 100 100 100 O2 Delivery Room Air Room Air Room Air Room Air 03/12/23 03/12/23 03/12/23 03/12/23 14:08 14:09 14:10 14:11 Pulse 98 94 105 96 Resp 20 20 20 20 B/P (MAP) 116/89 (98) 125/87 (100) 121/76 (91) 120/87 (98) Pulse Ox 100 100 100 100 O2 Delivery Room Air Room Air Room Air Room Air 03/12/23 03/12/23 03/12/23 03/12/23 14:12 14:13 14:14 14:15 Pulse 98 95 108 89 Resp 20 26 20 22 B/P (MAP) 125/89 (101) 122/88 (99) 120/86 (97) 130/78 (95) Pulse Ox 100 100 100 100 O2 Delivery Room Air Room Air Room Air Room Air 03/12/23 03/12/23 03/12/23 03/12/23 14:16 14:17 14:18 14:19 Pulse 98 86 84 97 Resp 20 19 20 22 B/P (MAP) 122/85 (97) 119/88 (98) 109/73 (85) 115/72 (86) Pulse Ox 97 97 97 97 O2 Delivery Room Air Room Air Room Air Room Air 03/12/23 03/12/23 03/12/23 03/12/23 14:20 14:21 14:22 14:23 Pulse 94 129 57 70 Resp 19 19 19 19 B/P (MAP) 112/88 (96) 136/112 (120) 110/54 (72) 112/60 (77) Pulse Ox 97 97 98 98 O2 Delivery Room Air Room Air Room Air Room Air 03/12/23 03/12/23 03/12/23 03/12/23 14:24 14:25 14:26 14:27 Pulse 87 80 87 76 Resp 19 19 19 22 B/P (MAP) 106/60 (75) 102/64 (77) 104/66 (79) 102/70 (81) Pulse Ox 98 98 98 98 O2 Delivery Room Air Room Air Room Air Room Air 03/12/23 03/12/23 03/12/23 03/12/23 14:28 14:29 14:30 14:31 Pulse 80 75 78 81 Resp 24 14 14 14 B/P (MAP) 99/64 (76) 95/68 (77) 95/67 (76) 99/62 (74) Pulse Ox 99 99 99 99 O2 Delivery Room Air Room Air Room Air Room Air 03/12/23 14:32 Pulse 81 Resp 14 B/P (MAP) 99/57 (71) Pulse Ox 99 O2 Delivery Room Air Patient was tilted to 75 degrees for [10] minutes, then returned to supine position, given [2] sublingual nitroglycerin tablets, then tilted again to 75 degrees for [2] minutes. During test, patient was: had a syncopal event at minute ( stage 2) In Conclusion;: Vasovagal Syncope with (Cardioinhibitory Syncope) Patient had syncopal episode during stage 2 at minute 2 with HR dropping from 138 to 59, followed by blood pressure dropping after, consistent with cardioinhibitory syncope. She was instructed to increased fluid and salt intake and use compression stockings and will see her for follow up in our office next month. If no improvement of symptoms, will consider use of Florinef. This is Imelda Davila PA-C, as a scribe for Dr. Nolasco. IMELDA PAYNE Mar 12, 2023 14:33 BRIAN NOLASCO MD Mar 12, 2023 14:40
== END 2023-03-12 15:06 | disposition home or self-care (01) ==
LOC: CARD 14:30
PROVIDERS: ATTEND Physician Assistant
DX: R55 Syncope and collapse (principal)
CPT/HCPCS: 93660

== ENCOUNTER 2023-06-19 12:39 | Observation (INO) | payer BC ==
[~2023-06-19] VITALS: Ht 165 cm; Wt 72.8 kg
[~2023-06-19 12:39] MED LIST changes: -ATROPINE INJECTION 1 MG/10 ML SYR (ABBOTT) ONE; -NS IV 1000 ML 1,000 ML IV ONE; -NS IV 1000 ML 1,000 ML ONE
[2023-06-19 13:45] VITALS: BP 129/84
[2023-06-19] MEDS ORDERED: HYDROcodone/APAP 7.5MG-325 MG/15 ML ORAL SOLN PO PRN (13:45)
[2023-06-19] MEDS ORDERED: ACETAMINOPHEN 325 MG TABLET PO PRN (13:45)
[2023-06-19] MEDS: dexAMETHasone INJ 10 MG/ML 1 ML VIAL IV SCH ×2 (14:05→21:16)
[2023-06-19] MEDS: CEFUROXIME 1,500 MG/NS 50 ML IVPB IV SCH ×4 (14:05→21:37)
--- NOTE | 2023-06-19 14:10 | Diagnostic Imaging Report ---
PROCEDURE: CT neck soft tissue without contrast. TECHNIQUE: Multiple contiguous axial images were obtained through the neck without the use of intravenous contrast. Auto Exposure Controls were utilized during the CT exam to meet ALARA standards for radiation dose reduction. INDICATION: Diagnosed with strep throat. Left-sided throat swelling. COMPARISON: None. FINDINGS: The posterior nasopharynx and oropharynx demonstrate appropriate symmetry. There is no displacement of the parapharyngeal fat planes. There is no abnormal process evident within the prevertebral or retropharyngeal space. There is no evidence of abnormal thickening of the epiglottis or aryepiglottic folds. The vocal folds appear symmetric. The parotid, submandibular and thyroid gland are unremarkable. Mildly prominent cervical lymph nodes are seen bilaterally. No focal inflammatory changes are demonstrated. No soft tissue mass or fluid collection demonstrated. The vascular structures the neck demonstrate no evidence of high-grade stenosis on this nondedicated exam. The visualized lung apices are clear. The visualized intracranial contents demonstrate no evidence of pathologic intracranial enhancement or intracranial mass effect. Visualized orbital contents are unremarkable. The visualized paranasal sinuses are clear. The mastoids and middle ears are clear. No acute osseous abnormality in the cervical spine. IMPRESSION: 1. Appropriate symmetry of the aerodigestive tract. No evidence of tonsillar abscess or retropharyngeal fluid. No airway compromise. 2. Prominent cervical lymph nodes bilaterally, likely reactive. Dictated by: Dictated on workstation # [id number]
[2023-06-19 14:20] LABS: HEMATOCRIT 39 % (35-52); HEMOGLOBIN 12.8 g/dL (11.5-16.0); MEAN CORPUSCULAR HEMOGLOBIN 29 pg (25-34); MEAN CORPUSCULAR HGB CONC 33 g/dL (32-36); MEAN CORPUSCULAR VOLUME 89 fL (80-99); MEAN PLATELET VOLUME 9.5 fL (9.0-12.2); PLATELET COUNT 268 10^3/uL (130-400); WHITE BLOOD COUNT 10.8 10^3/uL (4.3-11.0)
[2023-06-19 14:38] LABS: POTASSIUM 3.5 MMOL/L (3.6-5.0)
[2023-06-19 14:40] LABS: CALCIUM 9.1 MG/DL (8.5-10.1)
[2023-06-19 14:44] LABS: CREATININE SERUM 0.84 MG/DL (0.60-1.30)
[2023-06-19] MEDS ORDERED: LIRA3PEN SQ (15:00)
[2023-06-19] MEDS ORDERED: NAPR-915 PO (15:00)
[2023-06-19] MEDS ORDERED: ONDA8TAB13 SL (15:00)
[2023-06-19 15:13] VITALS: BP 116/69
--- NOTE | 2023-06-19 17:29 | Progress Note ---
Standard Progress Note Progress Notes/Assess & Plan Date Seen by a Provider: Jun 19, 2023 Time Seen by a Provider: 17:00 Progress/Assessment & Plan ENT-Elza Admitted with severe pharyngitis CT-neck with out contrast-no e vidence of abscess wbc-10.8 will conitnue IV antibiotics and steroids-will need to get three doses of antibiotics in and the steoirds before discahrge assuming she is doing better diet as tolerated home on oral antibiotics and steroids and diflucan prophylaxis Final Diagnosis Severe Pharyngitis RAMON NICOLE MD Jun 19, 2023 17:29
[2023-06-19 19:09] VITALS: BP 120/74
[2023-06-19 23:37] VITALS: BP 115/65
[2023-06-20 04:23] VITALS: BP 111/70
[2023-06-20] MEDS: dexAMETHasone INJ 10 MG/ML 1 ML VIAL IV SCH ×2 (05:02→14:14)
[2023-06-20] MEDS: CEFUROXIME 1,500 MG/NS 50 ML IVPB IV SCH ×4 (05:32→14:14)
--- NOTE | 2023-06-20 06:51 | Progress Note ---
Standard Progress Note Progress Notes/Assess & Plan Date Seen by a Provider: Jun 20, 2023 Time Seen by a Provider: 06:00 Progress/Assessment & Plan ENT-Elza Admitted with severe pharyngitis CT-neck with out contrast-no e vidence of abscess wbc-10.8 will conitnue IV antibiotics and steroids-will need to get three doses of antibiotics in and the steoirds before discahrge assuming she is doing better diet as tolerated home on oral antibiotics and steroids and diflucan prophylaxis ENT-06/20 Better no pain toerating diet OP-no exudate seen this am normal range of motion of neck radha ldischarge after afternoon dose of antiboitics discharge prescriptions in chart rtc-2 weeks RAMON NICOLE MD Jun 20, 2023 06:51
[2023-06-20 07:12] VITALS: BP 116/69
[2023-06-20 11:02] VITALS: BP 120/68
== END 2023-06-20 15:48 | disposition home or self-care (01) ==
LOC: 4TH 13:18
PROVIDERS: ADMIT Otolaryngology Otolaryngology/Facial Plastic Surgery; ATTEND Otolaryngology Otolaryngology/Facial Plastic Surgery
DX: J02.9 Acute pharyngitis, unspecified (principal)
CPT/HCPCS: 70490; 80048; 85027; 96366 ×2; 96374; 96375; 96376 ×2; G0378; G0379; 36415

== ENCOUNTER 2023-09-23 09:51 | Emergency (ER) | payer BC ==
[~2023-09-23] VITALS: Ht 167.7 cm; Wt 72.0 kg
[~2023-09-23 09:51] MED LIST changes: +LIRA3PEN SQ; +NAPR-915 PO; +ONDA8TAB13 SL; +PROG200C36 PO; -[UNRECOGNIZED DRUG - CODE] PO
[2023-09-23] MEDS ORDERED: ASPIRIN 81 MG CHEWABLE TABLET PO ONE (11:15)
[2023-09-23] MEDS ORDERED: NS IV 1000 ML 1,000 ML IV STA (11:16)
--- NOTE | 2023-09-23 11:21 | ED Chest Pain ---
General Chief Complaint: Cardiac/General Problems Stated Complaint: ABNORMAL EKG Source: patient Exam Limitations: no limitations ([facility]) History of Present Illness Date Seen by Provider: Sep 23, 2023 Time Seen by Provider: 11:17 Initial Comments Patient is a 28-year-old female with a history of POTS who presents to ED with chest pain shortness of breath right-sided numbness and tingling. She states she woke up around 515 with numbness in her right arm. That numbness has continued throughout the morning. She also reports numbness in her right leg. She has been experiencing intermittent chest pain and shortness of breath for several months. She does follow Dr. Nolasco. She states she had a a echo and tilt table test this past year. She schedule follow-up with a EP Dr. Krishna this next Friday. She has had numbness and tingling in her right arm and leg in the past but typically resolves fairly quick after 1 to 2 minutes. She was at work they obtained a EKG and sent patient to the ED for further evaluation. She does report chronic headaches. She denies any visual changes, vomiting, cough, sore throat, fever, neck pain, abdominal pain, dysuria, hematuria. ([facility]) Allergies and Home Medications Allergies Coded Allergies: iodine (Verified Allergy, Severe, ANAPHYLAXIS, 08/04/19) Patient Home Medication List Home Medication List Reviewed: Yes ([facility]) Liraglutide (Saxenda) 3 Mg/0.5 Ml (18 Mg/3 Ml) Pen.injctr, 0.6 MG SQ WED, (Reported) Entered as Reported by: DRE LAZO on 06/19/231499 Naproxen (Naproxen) 500 Mg Tablet, 500 MG PO BID PRN for HEADACHE, (Reported) Entered as Reported by: DRE LAZO on 06/19/23 1500 Ondansetron (Ondansetron Odt) 8 Mg Tab.rapdis, 8 MG SL Q8H PRN for NAUSEA/VOMITING-1ST LINE, (Reported) Entered as Reported by: DRE LAZO on 06/19/231499 Review of Systems Review of Systems Constitutional: No chills, No diaphoresis, No fever, No malaise, No weakness EENTM: No Double Vision, No Eye Pain, No Ear Pain, No Mouth Pain, No Mouth Swelling Respiratory: Denies Cough, Denies Orthopnea; Shortness of Air Cardiovascular: Chest Pain Gastrointestinal: Denies Abdominal Pain, Denies Diarrhea, Denies Nausea, Denies Vomiting Genitourinary: Denies Burning, Denies Discharge, Denies Drainage, Denies Frequency Musculoskeletal: No back pain, No joint pain Skin: No change in color, No change in hair/nails Psychiatric/Neurological: Denies Anxiety, Denies Depressed ([facility]) All Other Systems Reviewed Negative Unless Noted: Yes ([facility]) Past Tiqbtzt-Ahpyxs-Ozbnys Hx Patient Social History Tobacco Use?: No Use of E-Cig and/or Vaping dev: No Substance use?: No Alcohol Use?: No Pt feels they are or have been: No ([facility]) Immunizations Up To Date Tetanus Booster (TDap): Unknown PED Vaccines UTD: No First/Initial COVID19 Vaccinat: YES Second COVID19 Vaccination Krystian: YES Third COVID19 Vaccination Date: YES ([facility]) Seasonal Allergies Seasonal Allergies: No ([facility]) Past Medical History Surgery/Hospitalization HX: TONSILS REMOVED; 2 ORAL ABCESSES REQUIRING SURGICAL INTERVENTION, KNEE SURGERY FOR TORN ACL AND MCL, GALLBLADDER REMOVED, AND OVARIAN CYSTS SURGICALLY REMOVED. POTS Surgeries: Yes (RIGHT KNEE, WISDOM TEETH, ORAL X2, DXLS) Cystectomy, Gallbladder, Orthopedic, Tonsillectomy Respiratory: No Cardiac: Yes Palpitations Neurological: No Reproductive Disorders: Yes (PELVIC PAIN, PCOS) Female Reproductive Disorders: Ovarian Cyst, Polycystic Ovarian Dis Sexually Transmitted Disease: No HIV/AIDS: No Genitourinary: No Kidney Stones Gastrointestinal: No Gastroesophageal Reflux Musculoskeletal: No Endocrine: No HEENT: No Loss of Vision: Denies Hearing Impairment: Denies Cancer: No Psychosocial: No Integumentary: No Blood Disorders: No (ANEMIA) Adverse Reaction/Blood Tranf: No (N/A) ([facility]) Family Medical History Asthma 19 FATHER G8 SISTER Diabetes mellitus 19 FATHER G8 SISTER No Pertinent Family Hx ([facility]) Physical Exam Vital Signs Vital Signs - First Documented 09/23/23 09:55 Temp 36.5 Pulse 99 Resp 14 B/P (MAP) 142/77 (98) Pulse Ox 100 O2 Delivery Room Air (EDWINA TITUS MD) Vital Signs Capillary Refill : ([facility]) Height, Weight, BMI Height: 5'6.00" Weight: 138lbs. 0.0oz. 62.195401iz; 26.74 BMI Method:Stated General Appearance: No Apparent Distress, WD/WN HEENT: PERRL/EOMI, TMs Normal, Normal ENT Inspection, Pharynx Normal Neck: Full Range of Motion, Normal Inspection, Non Tender, Supple Respiratory: Chest Non Tender, Lungs Clear, Normal Breath Sounds, No Accessory Muscle Use, No Respiratory Distress Cardiovascular: No Edema, No Gallop, No JVD, Tachycardia Gastrointestinal: Normal Bowel Sounds, No Organomegaly, No Pulsatile Mass, Non Tender Extremity: Normal Capillary Refill, Normal Inspection, Normal Range of Motion, Non Tender Neurologic/Psychiatric: Alert, Oriented x3, No Motor/Sensory Deficits, Normal Mood/Affect, 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 Skin: Normal Color, Warm/Dry ([facility]) Progress/Results/Core Measures Results/Orders Lab Results Laboratory Tests Test 09/23/23 11:20 Range/Units White Blood Count 7.7 4.3-11.0 10^3/uL Red Blood Count 4.30 3.80-5.11 10^6/uL Hemoglobin 12.8 11.5-16.0 g/dL Hematocrit 39 35-52 % Mean Corpuscular Volume 91 80-99 fL Mean Corpuscular Hemoglobin 30 25-34 pg Mean Corpuscular Hemoglobin Concent 33 32-36 g/dL Red Cell Distribution Width 13.7 10.0-14.5 % Platelet Count 287 130-400 10^3/uL Mean Platelet Volume 9.4 9.0-12.2 fL Immature Granulocyte % (Auto) 0 % Neutrophils (%) (Auto) 64 42-75 % Lymphocytes (%) (Auto) 27 12-44 % Monocytes (%) (Auto) 7 0-12 % Eosinophils (%) (Auto) 2 0-10 % Basophils (%) (Auto) 1 0-10 % Neutrophils # (Auto) 4.9 1.8-7.8 10^3/uL Lymphocytes # (Auto) 2.0 1.0-4.0 10^3/uL Monocytes # (Auto) 0.5 0.0-1.0 10^3/uL Eosinophils # (Auto) 0.2 0.0-0.3 10^3/uL Basophils # (Auto) 0.1 0.0-0.1 10^3/uL Immature Granulocyte # (Auto) 0.0 0.0-0.1 10^3/uL Prothrombin Time 13.8 12.2-14.7 SEC INR Comment 1.0 0.8-1.4 Activated Partial Thromboplast Time 29 24-35 SEC Sodium Level 138 135-145 MMOL/L Potassium Level 3.9 3.6-5.0 MMOL/L Chloride Level 109 H 98-107 MMOL/L Carbon Dioxide Level 22 21-32 MMOL/L Anion Gap 7 5-14 MMOL/L Blood Urea Nitrogen 8 7-18 MG/DL Creatinine 0.87 0.60-1.30 MG/DL Estimat Glomerular Filtration Rate 93 BUN/Creatinine Ratio 9 Glucose Level 101 70-105 MG/DL Calcium Level 8.9 8.5-10.1 MG/DL Corrected Calcium 8.7 8.5-10.1 MG/DL Magnesium Level 2.1 1.6-2.4 MG/DL Total Bilirubin 0.4 0.1-1.0 MG/DL Aspartate Amino Transf (AST/SGOT) 15 5-34 U/L Alanine Aminotransferase (ALT/SGPT) 13 0-55 U/L Alkaline Phosphatase 70 40-136 U/L Myoglobin 14.7 10.0-92.0 NG/ML Troponin I < 0.028 <0.028 NG/ML B-Type Natriuretic Peptide 18.1 <100.0 PG/ML Total Protein 7.2 6.4-8.2 GM/DL Albumin 4.2 3.2-4.5 GM/DL Lipase 22 8-78 U/L Serum Test, Qualitative NEGATIVE NEGATIVE (EDWINA TITUS MD) My Orders Orders - EDWINA TITUS MD Ekg Tracing (09/23/23 09:53) (EDWINA TITUS MD) Vital Signs/I&O 09/23/23 09/23/23 09:55 13:26 Temp 36.5 36.5 Pulse 99 84 Resp 14 14 B/P (MAP) 142/77 (98) 117/82 Pulse Ox 100 100 O2 Delivery Room Air Room Air 09/24/23 00:00 Intake Total 1000 ml Balance 1000 ml (EDWINA TITUS MD) Comment Sinus tachycardia, possible left atrial enlargement, 100 bpm, QRS duration 74 MS, QTc 402 MS. ([facility]) Departure Communication (PCP) Reviewed previous ER visits, H&P, lab testing. Differential diagnosis arrhythmia, electrolyte abnormality, stroke, atypical migraine, neuropathy, MS. History of sinus tach. Follows Dr. Nolasco. Had a abnormal tilt test with a syncopal episode in February. Concern for cardioinhibitory syncope. It was recommended to increase fluid intake. She does have a history of POTS. She d enies of any current medication. She was slightly tachycardic Right above 100 BPM. She did receive a liter of fluid. She was concerned this morning she had numbness and tingling in her right arm when she woke up which she has had in the past. Typically last for 1 to 2 minutes. This numbness and tingling stayed constant. Started developing numbness and tingling in her right leg around the same time which is unusual. No significant stroke risk factors. She not currently on anticoagulants or control. she has no current chest pain or shortness of breath but did have chest pain earlier. She states this is fairly chronic. Cardiac work-up was initiated as well as CT scan of the head. EKG sinus tachycardia without evidence of SVT, A-fib, a flutter, WPW or Brugada syndrome. She was not hypoxic. Normotensive. CBC, CMP was grossly unremarkable. Normal troponin. CT scan of the head was negative for acute abnormality. Consulted with Dr. Rosa neurologist at [facility] secondary to the right sided numbness and tingling. She had no appreciation of weakness on exam. NIH was 0. She states this does feel different than her normal. At this time Dr. Rosa recommended obtaining a MRI. Other potential etiologies would be atypical type migraine. Nonspecific findings. Dr. Rosa recommended if negative MRI follow-up outpatient and no further work-up. MRI of the brain without was negative for acute abnormality. She still continue having this nonspecific neuropathy type pain. She does report history of chronic headaches but denies of any severe head pain at this time. She refused anything for pain for the headache. She is scheduled follow-up with EP on Friday. Due to reassuring cardiac work-up, imaging no emergent intervention at this time. Recommended following up with your PCP in the next 1 to 2 days for reevaluation. If any worsening symptoms to return back to ED for further evaluation such as chest pain or shortness of breath. Vital signs remained stable at discharge. ([facility]) Impression Primary Impression: Right sided numbness Additional Impression: Nonspecific chest pain Disposition: HOME, SELF-CARE Condition: Stable Departure-Patient Inst. Decision time for Depature: 13:17 ([facility]) Referrals: KENNY FRANCO DO (PCP/Family) Primary Care Physician Patient Instructions: Paresthesia (DC) Add. Discharge Instructions: Recommending contacting Dr. Franco for further evaluation. If any worsening symptoms to return back to ED. All discharge instructions reviewed with patient and/or family. Voiced understanding. ATTENDING PHYSICIAN NOTE: I was physically present as attending physician in the emergency department during the care of this patient, but I was not directly involved in the decision making or delivery of care for this patient. (EDWINA TITUS MD) [facility] Sep 23, 2023 11:21 EDWINA TITUS MD Sep 24, 2023 16:56
[2023-09-23 11:26] LABS: BASOPHILS # (AUTO) 0.1 10^3/uL (0.0-0.1); BASOPHILS % (AUTO) 1 % (0-10); EOSINOPHILS # (AUTO) 0.2 10^3/uL (0.0-0.3); EOSINOPHILS % (AUTO) 2 % (0-10); HEMATOCRIT 39 % (35-52); HEMOGLOBIN 12.8 g/dL (11.5-16.0); LYMPHOCYTES % (AUTO) 27 % (12-44); MEAN CORPUSCULAR HEMOGLOBIN 30 pg (25-34); MEAN CORPUSCULAR HGB CONC 33 g/dL (32-36); MEAN CORPUSCULAR VOLUME 91 fL (80-99); MEAN PLATELET VOLUME 9.4 fL (9.0-12.2); MONOCYTES # (AUTO) 0.5 10^3/uL (0.0-1.0); MONOCYTES % (AUTO) 7 % (0-12); NEUTROPHILS # (AUTO) 4.9 10^3/uL (1.8-7.8); NEUTROPHILS % (AUTO) 64 % (42-75); PLATELET COUNT 287 10^3/uL (130-400); WHITE BLOOD COUNT 7.7 10^3/uL (4.3-11.0)
[2023-09-23 11:36] LABS: PROTHROMBIN TIME PATIENT 13.8 SEC (12.2-14.7)
[2023-09-23 11:37] LABS: ALBUMIN 4.2 GM/DL (3.2-4.5); CHLORIDE 109 MMOL/L (98-107); POTASSIUM 3.9 MMOL/L (3.6-5.0); SODIUM 138 MMOL/L (135-145)
[2023-09-23 11:38] LABS: CALCIUM 8.9 MG/DL (8.5-10.1)
[2023-09-23 11:39] LABS: GLUCOSE 101 MG/DL (70-105); TOTAL PROTEIN 7.2 GM/DL (6.4-8.2)
[2023-09-23 11:40] LABS: CARBON DIOXIDE 22 MMOL/L (21-32)
[2023-09-23 11:41] LABS: BILIRUBIN,TOTAL 0.4 MG/DL (0.1-1.0)
--- NOTE | 2023-09-23 11:42 | Diagnostic Imaging Report ---
PROCEDURE: CT head without contrast. TECHNIQUE: Multiple contiguous axial images were obtained through the brain without the use of intravenous contrast. Auto Exposure Controls were utilized during the CT exam to meet ALARA standards for radiation dose reduction. INDICATION: Shoulder pain and tingling. COMPARISON: Brain MRI on 11/20/2020. FINDINGS: The dumont-white matter differentiation is preserved. The ventricles and cortical sulci are normal. No midline shift or mass effect. No intracranial hemorrhage. No intracranial mass or fluid collection. No midline shift or mass effect. No Chiari malformation. The sella is normal. The paranasal sinuses and mastoids are clear. The globes and orbits are normal. IMPRESSION: No acute intracranial hemorrhage. No large vascular territory huggins-white loss. No intracranial mass, midline shift, or hydrocephalus. Dictated by: Dictated on workstation # [id number]
[2023-09-23 11:43] LABS: ALKALINE PHOSPHATASE 70 U/L (40-136); CREATININE SERUM 0.87 MG/DL (0.60-1.30); GFR ESTIMATED 93
[2023-09-23 11:44] LABS: BUN/CREATININE RATIO 9
[2023-09-23 11:46] LABS: ALANINE AMINOTRANSFERASE 13 U/L (0-55); MAGNESIUM 2.1 MG/DL (1.6-2.4)
--- NOTE | 2023-09-23 11:46 | Diagnostic Imaging Report ---
CHEST 1 VIEW, AP/PA ONLY Indication: Chest pain. Comparison: 06/18/2022 Findings: No focal airspace disease in the visualized lungs. No pleural effusion or pneumothorax. Normal cardiomediastinal silhouette. Impression: 1. No acute cardiopulmonary process by portable radiography. Dictated by: Dictated on workstation # [id number]
[2023-09-23 11:47] LABS: LIPASE 22 U/L (8-78)
--- NOTE | 2023-09-23 12:53 | Diagnostic Imaging Report ---
PROCEDURE: MR imaging of the brain without contrast. TECHNIQUE: Multiplanar, multisequence MR imaging of the brain was performed without contrast. INDICATION: Arm tingling. COMPARISON: CT head performed earlier the same date. MRI brain on 11/20/2020. FINDINGS: No acute ischemia, mass, or hemorrhage. No focal signal abnormalities. The ventricles, cortical sulci, and basilar cisterns are symmetric and unremarkable. The sellar and suprasellar regions have a normal appearance. The brainstem and posterior fossa are unremarkable. The paranasal sinuses and mastoid air cells demonstrate normal signal characteristics. The globes and orbits are symmetric and unremarkable. The scalp and calvarium have a normal appearance. IMPRESSION: 1. No acute ischemia, mass, or hemorrhage. No focal signal abnormalities. Dictated by: Dictated on workstation # [id number]
[2023-09-23 13:26] VITALS: BP 117/82
== END 2023-09-23 13:30 | disposition home or self-care (01) ==
LOC: EDUNIT# 09:51 → ER 09:52
DX: R07.89 Other chest pain (principal); R20.0 Anesthesia of skin; R00.0 Tachycardia, unspecified
CPT/HCPCS: 36415; 70450; 70551; 71045; 80053; 83690; 83735; 83874; 83880; 84484; 84703; 85025; 85610; 85730; 93005; 93041; 96360; 96361